=== PATIENT | male | born 1940 | race Caucasian/White ===

== ENCOUNTER → 2016-11-13 | Outpatient (CLI) | payer MEDICARE, BC ==
--- NOTE | 2016-11-13 09:01 | CT ---
EXAMINATION TYPE: CT abdomen wo con DATE OF EXAM: 11/13/2016 8:26 AM COMPARISON: Previous study dated 11/18/2014. HISTORY: Abdominal Aneurysm CT DLP: 1325.9 mGycm Automated exposure control for dose reduction was used. TECHNIQUE: Helical acquisition of images was performed from the lung bases through the top of iliac crest to include entire abdomen. CONTRAST: Performed without Oral Contrast and without IV contrast. FINDINGS: There is a calcified granuloma in the right middle lobe. There is mild atelectatic change at both lung bases. There is no pleural or pericardial fluid. The heart is not enlarged. There is cor onary artery and other vascular calcifications. There is no evidence of an aortic aneurysm. The liver is enlarged measuring 21 cm. The spleen and gallbladder are normal. Both adrenal glands are normal. There is no evidence of hydronephrosis or nephrolithiasis. The pancreas is unremarkable. There is no significant retroperitoneal adenopathy. Visualized bowel loops are normal. No free fluid and no free air is seen. There is been interclavicular fusion extending from L3 to S1. IMPRESSION: 1. NO EVIDENCE OF AORTIC ANEURYSM. 2. HEPATOMEGALY. 3. VASCULAR CALCIFICATIONS INCLUDING THE CORONARY ARTERIES. 4. EVIDENCE OF OLD GRANULOMATOUS DISEASE. 5. POSTSURGICAL CHANGES WITHIN THE SPINE.
== END | disposition home or self-care (01) ==
LOC: RADCTMAIN 07:31
PROVIDERS: ATTEND Family Medicine
DX: R16.0 Hepatomegaly, not elsewhere classified (principal); I25.10 Atherosclerotic heart disease of native coronary artery without angina pectoris; Z98.890 Other specified postprocedural states
CPT/HCPCS: 74150

== ENCOUNTER 2016-12-04 15:25 | Emergency (ER) | payer MEDICARE, BC ==
[2016-12-04 15:37] VITALS: TEMP 97.7
[2016-12-04] MEDS ORDERED: SODIUM CHLORIDE 0.9% 1,000 ML IV ONE (16:24)
--- NOTE | 2016-12-04 16:34 | ED ---
General Adult HPI - General Chief complaint: Altered Mental Status Stated complaint: hard to wake, body twitching Time Seen by Provider: 12/04/16 16:13 Source: patient Mode of arrival: ambulatory Limitations: no limitations - History of Present Illness Initial comments: is a 76-year-old man presents to the emergency department with his who also gives history, and they state that he has been having generalized weakness and fatigue. He felt too weak to safely walk today. When he tried to get up to use the bathroom he felt like his legs were buckling. It definitely was both legs not 1. He denies focal weakness. The patient had not been feeling well yesterday and had gone to bed and then reportedly slept for about 14 hours. He did get up briefly and then went back to bed for another 4-6 hours , when his persuaded him to be seen here. The patient is denying pains. He denies dyspnea. He states that he just feels tired and weak. He has had a number of medication changes recently. He was taken off of his Plavix and aspirin because he felt he was having easy bruising and bleeding. He also had some leg edema and took a double dose of diuretic a couple of days ago. The patient does deny swelling today. Onset/Timin -: days(s) Associated Symptoms: weakness - Related Data Home Medications Medication Instructions Recorded Confirmed Glimepiride 2 mg PO BID 03/28/15 12/04/16 Hydrocodone/Acetaminophen 1 tab PO Q4H PRN 03/28/15 12/04/16 [Hydrocodon-Acetaminophn 10-325] Lisinopril 20 mg PO DAILY 03/28/15 12/04/16 Metoclopramide [Reglan] 5 mg PO BID 03/28/15 12/04/16 metFORMIN HCL 500 mg PO W/SUPPER 03/28/15 12/04/16 sitaGLIPtin [Januvia] 50 mg PO DAILY 03/28/15 12/04/16 Aspirin EC [Ecotrin] 81 mg PO SUWE 12/04/16 12/04/16 Baclofen [Lioresal] 20 mg PO TID PRN 12/04/16 12/04/16 Cetirizine HCl [Zyrtec] 10 mg PO HS PRN 12/04/16 12/04/16 Morphine Sulfate ER [Ms Contin 30 mg PO BID PRN 12/04/16 12/04/16 30Mg] Multivitamins, Thera [Multivitamin 1 tab PO DAILY 12/04/16 12/04/16 (formulary)] Omeprazole 40 mg PO BID 12/04/16 12/04/16 Polyethylene Glycol 3350 [Miralax] 17 gm PO DAILY 12/04/16 12/04/16 Tamsulosin HCl [Flomax] 0.4 mg PO DAILY 12/04/16 12/04/16 traZODone HCL 300 mg PO HS 12/04/16 12/04/16 Previous Rx's Medication Instructions Recorded Nitroglycerin Sl Tabs [Nitrostat] 0.4 mg SUBLINGUAL Q5M PRN #25 tab 03/31/15 Allergies Allergy/AdvReac Type Severity Reaction Status Date / Time Penicillins Allergy Rash/Hives Verified 12/04/16 16:30 Review of Systems ROS Statement: Those systems with pertinent positive or pertinent negative responses have been documented in the HPI. ROS Other: All systems not noted in ROS Statement are negative. Constitutional: Reports: weakness (Generalized). Denies: fever, chills Respiratory: Denies: cough, dyspnea Cardiovascular: Denies: chest pain, palpitations, orthopnea, syncope Gastrointestinal: Denies: abdominal pain, vomiting, diarrhea, melena, hematochezia Genitourinary: Reports: other (Possible oliguria). Denies: dysuria, hematuria Musculoskeletal: Denies: back pain Skin: Denies: rash Neurological: Denies: headache, weakness, numbness Hematological/Lymphatic: Reports: as per HPI, easy bleeding, easy bruising Past Medical History Past Medical History: Chest Pain / Angina, Diabetes Mellitus, GERD/Reflux, Hypertension, Osteoarthritis (OA) Additional Past Medical History / Comment(s): CHRONIC BACK PAIN. ABN STRESS TEST. History of Any Multi-Drug Resistant Organisms: None Reported Past Surgical History: Appendectomy, Back Surgery, Orthopedic Surgery Additional Past Surgical History / Comment(s): 03-30-15 HEART CATH WITH STENTS TO OM AND LAD. BACK SURG X2. Past Anesthesia/Blood Transfusion Reactions: No Reported Reaction Past Psychological History: No Psychological Hx Reported Smoking Status: Former smoker Past Alcohol Use History: None Reported Past Drug Use History: None Reported - Past Family History Mother Family Medical History: No Reported History General Exam Limitations: no limitations General appearance: alert, in no apparent distress, obese Head exam: Present: atraumatic, normocephalic Eye exam: Present: normal appearance. Absent: scleral icterus, conjunctival injection ENT exam: Present: mucous membranes dry Neck exam: Present: normal inspection, full ROM Respiratory exam: Present: normal lung sounds bilaterally. Absent: respiratory distress, wheezes, rales, rhonchi, stridor Cardiovascular Exam: Present: regular rate, normal rhythm, normal heart sounds. Absent: systolic murmur, diastolic murmur, rubs, gallop GI/Abdominal exam: Present: soft. Absent: distended, tenderness, guarding, rebound, rigid, mass, pulsatile mass, hernia Extremities exam: Present: normal inspection, normal capillary refill. Absent: pedal edema, calf tenderness Back exam: Present: normal inspection. Absent: CVA tenderness (R), CVA tenderness (L) Neurological exam: Present: alert, CN II-XII intact. Absent: motor sensory deficit Skin exam: Present: warm, dry, intact, normal color. Absent: rash Course Vital Signs 12/04/16 12/04/16 12/04/16 15:33 17:35 18:23 Temperature 97.7 F Pulse Rate 80 79 Respiratory 18 18 18 Rate Blood Pressure 140/72 134/84 O2 Sat by Pulse 94 L 93 L 100 Oximetry 12/04/16 18:27 Temperature Pulse Rate 82 Respiratory 18 Rate Blood Pressure 141/76 O2 Sat by Pulse 100 Oximetry Medical Decision Making - Lab Data Result diagrams: 12/04/16 16:18 12/04/16 16:18 Lab Results 12/04/16 12/04/16 12/04/16 Range/Units 16:18 16:18 16:18 WBC 13.2 H (3.8-10.6) k/uL RBC 4.81 (4.30-5.90) m/uL Hgb 13.6 (13.0-17.5) gm/dL Hct 42.6 (39.0-53.0) % MCV 88.6 (80.0-100.0) fL MCH 28.4 (25.0-35.0) pg MCHC 32.0 (31.0-37.0) g/dL RDW 15.0 (11.5-15.5) % Plt Count 175 (150-450) k/uL Neutrophils % 82 % Lymphocytes % 9 % Monocytes % 6 % Eosinophils % 1 % Basophils % 1 % Neutrophils # 10.8 H (1.3-7.7) k/uL Lymphocytes # 1.2 (1.0-4.8) k/uL Monocytes # 0.8 (0-1.0) k/uL Eosinophils # 0.2 (0-0.7) k/uL Basophils # 0.1 (0-0.2) k/uL Sodium 136 L (137-145) mmol/L Potassium 4.5 (3.5-5.1) mmol/L Chloride 98 (98-107) mmol/L Carbon Dioxide 25 (22-30) mmol/L Anion Gap 13 mmol/L BUN 41 H (9-20) mg/dL Creatinine 1.27 H (0.66-1.25) mg/dL Est GFR (MDRD) Af Amer >60 (>60 ml/min/1.73 sqM) Est GFR (MDRD) Non-Af 55 (>60 ml/min/1.73 sqM) Glucose 169 H (74-99) mg/dL Plasma Lactic Acid Jeff (0.7-2.0) mmol/L Calcium 9.7 (8.4-10.2) mg/dL Magnesium 2.3 (1.6-2.3) mg/dL Total Bilirubin 0.9 (0.2-1.3) mg/dL AST 24 (17-59) U/L ALT 33 (21-72) U/L Alkaline Phosphatase 63 (38-126) U/L Ammonia (<30) umol/L Troponin I <0.012 (0.000-0.034) ng/mL Total Protein 8.0 (6.3-8.2) g/dL Albumin 4.4 (3.5-5.0) g/dL Urine Color Urine Appearance (Clear) Urine pH (5.0-8.0) Ur Specific [place] (1.001-1.035) Urine Protein (Negative) Urine Glucose (UA) (Negative) Urine Ketones (Negative) Urine Blood (Negative) Urine Nitrite (Negative) Urine Bilirubin (Negative) Urine Urobilinogen (<2.0) mg/dL Ur Leukocyte Esterase (Negative) Serum Alcohol <10 mg/dL 12/04/16 12/04/16 Range/Units 16:40 17:25 WBC (3.8-10.6) k/uL RBC (4.30-5.90) m/uL Hgb (13.0-17.5) gm/dL Hct (39.0-53.0) % MCV (80.0-100.0) fL MCH (25.0-35.0) pg MCHC (31.0-37.0) g/dL RDW (11.5-15.5) % Plt Count (150-450) k/uL Neutrophils % % Lymphocytes % % Monocytes % % Eosinophils % % Basophils % % Neutrophils # (1.3-7.7) k/uL Lymphocytes # (1.0-4.8) k/uL Monocytes # (0-1.0) k/uL Eosinophils # (0-0.7) k/uL Basophils # (0-0.2) k/uL Sodium (137-145) mmol/L Potassium (3.5-5.1) mmol/L Chloride (98-107) mmol/L Carbon Dioxide (22-30) mmol/L Anion Gap mmol/L BUN (9-20) mg/dL Creatinine (0.66-1.25) mg/dL Est GFR (MDRD) Af Amer (>60 ml/min/1.73 sqM) Est GFR (MDRD) Non-Af (>60 ml/min/1.73 sqM) Glucose (74-99) mg/dL Plasma Lactic Acid Jeff 1.6 (0.7-2.0) mmol/L Calcium (8.4-10.2) mg/dL Magnesium (1.6-2.3) mg/dL Total Bilirubin (0.2-1.3) mg/dL AST (17-59) U/L ALT (21-72) U/L Alkaline Phosphatase (38-126) U/L Ammonia <9 (<30) umol/L Troponin I (0.000-0.034) ng/mL Total Protein (6.3-8.2) g/dL Albumin (3.5-5.0) g/dL Urine Color Yellow Urine Appearance Clear (Clear) Urine pH 5.0 (5.0-8.0) Ur Specific [place] 1.009 (1.001-1.035) Urine Protein Negative (Negative) Urine Glucose (UA) Negative (Negative) Urine Ketones Negative (Negative) Urine Blood Negative (Negative) Urine Nitrite Negative (Negative) Urine Bilirubin Negative (Negative) Urine Urobilinogen <2.0 (<2.0) mg/dL Ur Leukocyte Esterase Negative (Negative) Serum Alcohol mg/dL Disposition Clinical Impression: Generalized weakness, Dehydration Disposition: HOME SELF-CARE Condition: Fair Instructions: Dehydration (ED), Weakness (ED) Referrals: Tank Broussard DO [Primary Care Provider] - 1-2 days
[2016-12-04 16:43] LABS: Basophils # (A) 0.1 k/uL (0-0.2); Basophils % (A) 1 %; CH 28.2; CHCM 31.9; Eosinophils # (A) 0.2 k/uL (0-0.7); Eosinophils % (A) 1 %; HCT 42.6 % (39.0-53.0); HDW 2.59; HGB 13.6 gm/dL (13.0-17.5); Luc # (Auto) 0.19; Luc % (Auto) 1; Lymphocytes # (A) 1.2 k/uL (1.0-4.8); Lymphocytes % (A) 9 %; MCH 28.4 pg (25.0-35.0); MCV 88.6 fL (80.0-100.0); Mean Platelet Volume 7.9; Monocytes # (A) 0.8 k/uL (0-1.0); Monocytes % (A) 6 %; Neutrophils # (A) 10.8 k/uL (1.3-7.7); Neutrophils % (A) 82 %; RBC 4.81 m/uL (4.30-5.90); WBC 13.2 k/uL (3.8-10.6); WBC (Perox) 13.49
[2016-12-04 16:50] LABS: ALT 33 U/L (21-72); AST 24 U/L (17-59); Alcohol <10 mg/dL; Alkaline Phosphatase 63 U/L (38-126); Anion Gap 13 mmol/L; Blood Urea Nitrogen 41 mg/dL (9-20); Calcium 9.7 mg/dL (8.4-10.2); Carbon Dioxide 25 mmol/L (22-30); Chloride 98 mmol/L (98-107); Glucose 169 mg/dL (74-99); Magnesium 2.3 mg/dL (1.6-2.3); Non-African American GFR(MDRD) 55 (>60 ml/min/1.73 sqM); Potassium 4.5 mmol/L (3.5-5.1); Sodium 136 mmol/L (137-145); Total Bilirubin 0.9 mg/dL (0.2-1.3)
[2016-12-04 17:10] LABS: Ammonia <9 umol/L (<30)
[2016-12-04 17:37] LABS: Appearance,Urine Clear (Clear); Bilirubin,Urine Negative (Negative); Glucose,Urine (UA) Negative (Negative); Ketones,Urine Negative (Negative); Leukocyte Esterase,Urine Negative (Negative); Nitrite,Urine Negative (Negative); Protein,Urine Negative (Negative); Specific Gravity,Urine 1.009 (1.001-1.035); UA Billing (MACRO vs. MICRO) CHEM; Urobilinogen,Urine <2.0 mg/dL (<2.0)
--- NOTE | 2016-12-04 17:47 | XR ---
EXAMINATION TYPE: XR chest 1V portable DATE OF EXAM: 12/04/2016 5:38 PM HISTORY: Shortness of breath. COMPARISON: March 26, 2015 TECHNIQUE: Single view of the chest is submitted. FINDINGS: Demonstrated are scattered senescent parenchymal change. There is no evidence for focal infiltrate. The heart is stable. Hilar and mediastinal structures are within normal limits. Degenerative changes are seen of the dorsal spine. IMPRESSION: 1. Chronic changes without evidence for acute pulmonary disease.
[2016-12-04 20:17] VITALS: BP 144/65; PULSE 86; RESP 20
== END 2016-12-04 20:17 | disposition home or self-care (01) ==
LOC: EC 15:25
DX: E86.0 Dehydration (principal); R53.1 Weakness; E11.9 Type 2 diabetes mellitus without complications; K21.9 Gastro-esophageal reflux disease without esophagitis; I10 Essential (primary) hypertension; M19.90 Unspecified osteoarthritis, unspecified site; Z87.891 Personal history of nicotine dependence; Z79.84 Long term (current) use of oral hypoglycemic drugs; Z79.82 Long term (current) use of aspirin; Z79.899 Other long term (current) drug therapy; Z88.0 Allergy status to penicillin
CPT/HCPCS: 36415; 71010; 80053; 80320; 81003; 82140; 83605; 83735; 84484; 85025; 87086; 93005; 96360; 99285

== ENCOUNTER 2017-04-30 06:24 | Day surgery (SDC) | payer MEDICARE, BC ==
[2017-04-26 13:42] VITALS: BMI 38.0
[~2017-04-30 06:24] MED LIST: LACTATED RINGERS 1,000 ML IV SCH; LIDOCAINE 1% 20 ML VIAL (10MG/ML) FOR IV START INTRADERMA PRN
[2017-04-30] MEDS: PHENYLEPHRINE 10% OPHTH DROPS 5 ML BTL OP ONE ×3 (06:45→07:05)
[2017-04-30] MEDS: CYCLOPENTOLATE 1% OPHTH SOLN 2 ML BTL OP ONE ×3 (07:10→07:20)
[2017-04-30] MEDS ORDERED: LIDOCAINE 1% 20 ML VIAL (10MG/ML) FOR IV START INTRADERMA ONE (07:10)
[2017-04-30 07:13] VITALS: RESP 18; TEMP 97.1
[2017-04-30 07:16] LABS: Glucose,Whole Blood 138 mg/dL (75-99)
[2017-04-30] MEDS: KETOROLAC 0.5% OPHTH DROPS 3 ML BTL OP ONE ×2 (07:22→07:25)
[2017-04-30] MEDS ORDERED: PROPOFOL 10 MG/ML 20 ML VIAL IV ONE (07:42)
[2017-04-30] MEDS ORDERED: MIDAZOLAM 2 MG/2 ML VIAL ONE (07:42)
[2017-04-30] MEDS ORDERED: fentaNYL (PF) 50 MCG/ML 2 ML AMP ONE (07:42)
[2017-04-30] MEDS ORDERED: EPINEPHrine (PF) 0.5 ML in BALANCED SALT IRRIG SOLN COMB2 500 ML IRRIGATION ONE (08:00)
[2017-04-30] MEDS ORDERED: BALANCED SALT IRRIG SOLN COMB2 15 ML IRRIG.SOLN IRRIGATION ONE (08:02)
[2017-04-30] MEDS ORDERED: HYALURONATE SODIUM INTRAOCULAR 1 EACH SYRINGE (10MG/ML) INTRAOCULA ONE (08:03)
[2017-04-30 08:27] VITALS: BP 147/63; PULSE 49
--- NOTE | 2017-04-30 08:50 | P.OP ---
Date of Procedure: 04/30/17 Procedure(s) Performed: PREOPERATIVE DIAGNOSIS: Cataract, right eye. Miosis secondary to Flomax usage. POSTOPERATIVE DIAGNOSIS: Cataract, right eye. OPERATION: Phacoemulsification cataract, right eye. DESCRIPTION OF PROCEDURE: The patient was taken to the preoperative holding area. Intravenous Propofol was given so as to bring about adequate sedation. The following mixture was given for local anesthesia: 5 mL of 2% lidocaine, 5 mL of 0.75% Marcaine, and 1 mL of Wydase. Approximately 4 mL was injected in the retrobulbar space of the surgical eye. Additional 1 mL was then directed to the temporal area of the surgical eye. This was performed to allow adequate neurological block of the facial muscles. The patient was revived and then taken into the operative room. The patient was prepped and draped in the usual sterile manner for the operative eye. A lid speculum was put into position. The conjunctiva was resected back from the limbus in the 12 o'clock position. Bleeding was controlled with electrocautery. A #69 blade was then used and a half-thickness scleral incision approximately 1-mm posterior to the limbus was made on bare sclera. This was shelved in the clear cornea using a crescent knife. Next a 15-degree blade was used to make a stab incision at the 3 o' clock position at the corneolimbal interface. Keratome blade was then used and the superior wound was extended into the anterior chamber. Viscoelastic was injected into the anterior chamber and to maintain its form. A Maluygin ring was injected and the pupil was stretched into poisiton. Next, a cystotome was used and a continuous anterior capsulotomy was made without difficulty. Hydrodissection using a blunt cannula and BSS was performed. Phaco probe was then employed and a groove extending from 12 to 6 o'clock in the lens was created. A Cristian wand was used through the stab incision so as to perform a divide and conquer technique. Next an irrigation aspiration probe was utilized and any residual cortex was removed from the eye. Again, viscoelastic was injected into the anterior chamber. An Juan posterior chamber lens implant was placed in the cartridge and injected into the anterior chamber without difficulty. The Reva Systemsey hook was utilized to spin the lens into position and this was again performed without any difficulty. The Maluygin ring was removed from the eye. The irrigation and aspiration probe was again employed and any residual viscoelastic was removed from the eye. Then BSS was injected into the limbal stab incision and the anterior chamber re- inflated. The conjunctiva was reapproximated using electrocautery. One drop of 0.25% Timoptic was placed over the corneal along with TobraDex ophthalmic ointment. Two sterile patches and a Noel eye shield were taped into position. The patient was transported to the recovery room in stable condition. Pathology: none sent Condition: stable Disposition: same day
[2017-04-30] MEDS ORDERED: BUPIVACAINE (PF) 0.75% 5 ML, LIDOCAINE 4% (PF) 5 ML, HYALURONIDASE, HUMAN RECOMB 150 UNIT MISCELLANE ONE ×3 (23:00)
[2017-04-30] MEDS ORDERED: TIMOLOL 0.5% OPHTH SOLN (PF) 0.2 ML DROPERETTE OP ONE (23:00)
[2017-04-30] MEDS ORDERED: GENTAMICIN/PREDNISOL AC OPHTH OINT 3.5GM OPHTHALMIC ONE (23:00)
== END 2017-04-30 09:11 | disposition home or self-care (01) ==
LOC: OR 06:24
PROVIDERS: ATTEND Ophthalmology
DX: H26.9 Unspecified cataract (principal); H57.03 Miosis; E11.9 Type 2 diabetes mellitus without complications; I10 Essential (primary) hypertension; Z95.5 Presence of coronary angioplasty implant and graft; Z88.0 Allergy status to penicillin; I25.2 Old myocardial infarction; I25.10 Atherosclerotic heart disease of native coronary artery without angina pectoris; J44.9 Chronic obstructive pulmonary disease, unspecified; K21.9 Gastro-esophageal reflux disease without esophagitis; Z79.84 Long term (current) use of oral hypoglycemic drugs; Z87.891 Personal history of nicotine dependence; Z79.899 Other long term (current) drug therapy; T44.6X5A Adverse effect of alpha-adrenoreceptor antagonists, initial encounter
CPT/HCPCS: 66984; V2632; J2001; J2250; J3470; J0171; J3010; J2704

== ENCOUNTER 2017-10-24 09:24 | Emergency (ER) | payer MEDICARE, BC ==
[2017-10-24 09:36] VITALS: RESP 18
[2017-10-24] MEDS ORDERED: SODIUM CHLORIDE 0.9% 1,000 ML IV ONE (09:48)
--- NOTE | 2017-10-24 10:20 | ED ---
General Adult HPI - General Chief complaint: Fall Stated complaint: Fall Time Seen by Provider: 10/24/17 09:25 Source: patient, family, EMS, RN notes reviewed Mode of arrival: EMS Limitations: no limitations - History of Present Illness Initial comments: 77-year-old male presents emergency department via EMS with multiple complaints. states that the patient has been falling, with jerking movements. She states that he suddenly just starts jerking all his extremities is awake. 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 She has noticed this in the last 2 days. He's had 2 large falls and when she tries to get up and this falls forward. Patient did fall has abrasion to his arm and skin tears. His tetanus is up-to-date. Patient denies any head injury and also conscious. Patient denies any chest pain or shortness breath. Patient states that he has no history of Parkinson's or seizure-like activity. He states he cannot control these movements he just starts jerking especially his extremities. He does admit to a long history of back problems in which she's had multiple surgeries. Patient has been going to physical therapy. also states that he just been randomly fallen asleep which is unusual for him. - Related Data Home Medications Medication Instructions Recorded Confirmed Glimepiride 2 mg PO BID-W/MEALS 03/28/15 10/24/17 Hydrocodone/Acetaminophen 1 tab PO Q4H PRN 03/28/15 10/24/17 [Hydrocodone-Acetamin 10-325 mg] Lisinopril 20 mg PO DAILY 03/28/15 10/24/17 Metoclopramide [Reglan] 5 mg PO BID 03/28/15 10/24/17 metFORMIN HCL 500 mg PO DAILY 03/28/15 10/24/17 sitaGLIPtin [Januvia] 50 mg PO DAILY 03/28/15 10/24/17 Aspirin EC [Ecotrin] 81 mg PO DAILY 12/04/16 10/24/17 Cetirizine HCl [Zyrtec] 10 mg PO DAILY 12/04/16 10/24/17 Multivitamins, Thera [Multivitamin 1 tab PO DAILY 12/04/16 10/24/17 (formulary)] Omeprazole 40 mg PO BID 12/04/16 10/24/17 Polyethylene Glycol 3350 [Miralax] 17 gm PO DAILY 12/04/16 10/24/17 Tamsulosin HCl [Flomax] 0.4 mg PO DAILY 12/04/16 10/24/17 traZODone HCL 300 mg PO HS 12/04/16 10/24/17 Metoprolol Succinate (ER) [Toprol 50 mg PO DAILY 04/26/17 10/24/17 Xl] tiZANidine [Zanaflex] 4 mg PO TID 04/26/17 10/24/17 Atorvastatin [Lipitor] 10 mg PO HS 10/24/17 10/24/17 Insulin Glargine,Hum.rec.anlog 16 unit SQ DAILY 10/24/17 10/24/17 [Lantus Solostar] Pregabalin [Lyrica] 75 mg PO BID 10/24/17 10/24/17 Previous Rx's Medication Instructions Recorded Nitroglycerin Sl Tabs [Nitrostat] 0.4 mg SUBLINGUAL Q5M PRN #25 tab 03/31/15 Allergies Allergy/AdvReac Type Severity Reaction Status Date / Time Penicillins Allergy Rash/Hives Verified 10/24/17 09:43 Review of Systems ROS Statement: Those systems with pertinent positive or pertinent negative responses have been documented in the HPI. ROS Other: All systems not noted in ROS Statement are negative. Past Medical History Past Medical History: Diabetes Mellitus, Hypertension, Myocardial Infarction ([place] ) Additional Past Medical History / Comment(s): CHRONIC BACK PAIN., ENLARGED PROSTATE Last Myocardial Infarction Date:: 03/2015 History of Any Multi-Drug Resistant Organisms: None Reported Past Surgical History: Appendectomy, Back Surgery, Heart Catheterization With Stent, Orthopedic Surgery Additional Past Surgical History / Comment(s): HEART CATH WITH STENTS x2 (03/2015 ), BACK SURG X2. Past Anesthesia/Blood Transfusion Reactions: No Reported Reaction Date of Last Stent Placement:: 03/2015 Past Psychological History: No Psychological Hx Reported Smoking Status: Former smoker Past Alcohol Use History: None Reported Past Drug Use History: None Reported - Past Family History Mother Family Medical History: No Reported History General Exam General appearance: alert, in no apparent distress Eye exam: Present: normal appearance, PERRL, EOMI. Absent: scleral icterus, conjunctival injection, periorbital swelling ENT exam: Present: normal exam, normal oropharynx, mucous membranes moist, TM's normal bilaterally, normal external ear exam Neck exam: Present: normal inspection, full ROM. Absent: tenderness, meningismus, lymphadenopathy Respiratory exam: Present: normal lung sounds bilaterally. Absent: respiratory distress, wheezes, rales, rhonchi, stridor Cardiovascular Exam: Present: regular rate, normal rhythm, normal heart sounds. Absent: systolic murmur, diastolic murmur, rubs, gallop, clicks GI/Abdominal exam: Present: soft, normal bowel sounds. Absent: distended, tenderness, guarding, rebound, rigid Extremities exam: Present: other (Patient has full range of motion of all extremities no focal weakness launchman strength equal bilaterally) Neurological exam: Present: alert, oriented X3, CN II-XII intact, reflexes normal. Absent: motor sensory deficit Skin exam: Present: warm, dry, intact, normal color. Absent: rash Course Vital Signs 10/24/17 09:27 Temperature 97.2 F L Pulse Rate 56 L Respiratory 18 Rate Blood Pressure 158/82 O2 Sat by Pulse 91 L Oximetry Medical Decision Making - Medical Decision Making 77-year-old male presented for multiple complaints. Patient states he is jerky , fall asleep. Patient's on absent urinary retention. Patient was. Patient was offered a [place]. Mes[place] at this time. Patient was offered admission due to his unsteady gait and weakness. Patient was able to ambulate here without difficulty. Patient refuses admission. X-ray shows atelectasis. There is no evidence of pneumonia. - Lab Data Result diagrams: 10/24/17 10:07 10/24/17 10:07 Lab Results 10/24/17 10/24/17 10/24/17 Range/Units 10:07 10:07 10:07 WBC 8.4 (3.8-10.6) k/uL RBC 4.66 (4.30-5.90) m/uL Hgb 13.1 (13.0-17.5) gm/dL Hct 40.9 (39.0-53.0) % MCV 87.7 (80.0-100.0) fL MCH 28.2 (25.0-35.0) pg MCHC 32.1 (31.0-37.0) g/dL RDW 14.9 (11.5-15.5) % Plt Count 177 (150-450) k/uL Neutrophils % 82 % Lymphocytes % 8 % Monocytes % 7 % Eosinophils % 1 % Basophils % 0 % Neutrophils # 6.8 (1.3-7.7) k/uL Lymphocytes # 0.6 L (1.0-4.8) k/uL Monocytes # 0.6 (0-1.0) k/uL Eosinophils # 0.1 (0-0.7) k/uL Basophils # 0.0 (0-0.2) k/uL PT (9.0-12.0) sec INR (<1.2) APTT (22.0-30.0) sec Sodium 141 (137-145) mmol/L Potassium 4.0 (3.5-5.1) mmol/L Chloride 100 (98-107) mmol/L Carbon Dioxide 31 H (22-30) mmol/L Anion Gap 10 mmol/L BUN 42 H (9-20) mg/dL Creatinine 1.40 H (0.66-1.25) mg/dL Est GFR (CKD-EPI)AfAm 57 (>60 ml/min/1.73 sqM) Est GFR (CKD-EPI)NonAf 49 (>60 ml/min/1.73 sqM) Glucose 199 H (74-99) mg/dL Calcium 9.4 (8.4-10.2) mg/dL Magnesium 2.1 (1.6-2.3) mg/dL Total Bilirubin 0.4 (0.2-1.3) mg/dL AST 27 (17-59) U/L ALT 53 (21-72) U/L Alkaline Phosphatase 60 (38-126) U/L Total Creatine Kinase 31 L (55-170) U/L CK-MB (CK-2) 0.6 (0.0-2.4) ng/mL CK-MB (CK-2) Rel Index 1.9 Troponin I <0.012 (0.000-0.034) ng/mL NT-Pro-B Natriuret Pep pg/mL Total Protein 6.7 (6.3-8.2) g/dL Albumin 3.9 (3.5-5.0) g/dL Lipase 80 (23-300) U/L Urine Color Urine Appearance (Clear) Urine pH (5.0-8.0) Ur Specific [place] (1.001-1.035) Urine Protein (Negative) Urine Glucose (UA) (Negative) Urine Ketones (Negative) Urine Blood (Negative) Urine Nitrite (Negative) Urine Bilirubin (Negative) Urine Urobilinogen (<2.0) mg/dL Ur Leukocyte Esterase (Negative) 10/24/17 10/24/17 10/24/17 Range/Units 10:07 10:22 12:07 WBC (3.8-10.6) k/uL RBC (4.30-5.90) m/uL Hgb (13.0-17.5) gm/dL Hct (39.0-53.0) % MCV (80.0-100.0) fL MCH (25.0-35.0) pg MCHC (31.0-37.0) g/dL RDW (11.5-15.5) % Plt Count (150-450) k/uL Neutrophils % % Lymphocytes % % Monocytes % % Eosinophils % % Basophils % % Neutrophils # (1.3-7.7) k/uL Lymphocytes # (1.0-4.8) k/uL Monocytes # (0-1.0) k/uL Eosinophils # (0-0.7) k/uL Basophils # (0-0.2) k/uL PT 9.5 (9.0-12.0) sec INR 1.0 (<1.2) APTT 20.6 L (22.0-30.0) sec Sodium (137-145) mmol/L Potassium (3.5-5.1) mmol/L Chloride (98-107) mmol/L Carbon Dioxide (22-30) mmol/L Anion Gap mmol/L BUN (9-20) mg/dL Creatinine (0.66-1.25) mg/dL Est GFR (CKD-EPI)AfAm (>60 ml/min/1.73 sqM) Est GFR (CKD-EPI)NonAf (>60 ml/min/1.73 sqM) Glucose (74-99) mg/dL Calcium (8.4-10.2) mg/dL Magnesium (1.6-2.3) mg/dL Total Bilirubin (0.2-1.3) mg/dL AST (17-59) U/L ALT (21-72) U/L Alkaline Phosphatase (38-126) U/L Total Creatine Kinase (55-170) U/L CK-MB (CK-2) (0.0-2.4) ng/mL CK-MB (CK-2) Rel Index Troponin I (0.000-0.034) ng/mL NT-Pro-B Natriuret Pep 50 pg/mL Total Protein (6.3-8.2) g/dL Albumin (3.5-5.0) g/dL Lipase (23-300) U/L Urine Color Yellow Urine Appearance Clear (Clear) Urine pH 5.5 (5.0-8.0) Ur Specific [place] 1.018 (1.001-1.035) Urine Protein Trace H (Negative) Urine Glucose (UA) 2+ H (Negative) Urine Ketones Negative (Negative) Urine Blood Negative (Negative) Urine Nitrite Negative (Negative) Urine Bilirubin Negative (Negative) Urine Urobilinogen <2.0 (<2.0) mg/dL Ur Leukocyte Esterase Negative (Negative) Disposition Clinical Impression: Fall, Occasional tremors, Urinary retention Disposition: HOME SELF-CARE Condition: Stable Instructions: Fall Prevention (ED) Additional Instructions: Please return to the Emergency Department if symptoms worsen or any other concerns. Referrals: Tank Broussard DO [Primary Care Provider] - 1-2 days Time of Disposition: 13:49
[2017-10-24 10:31] LABS: Basophils % (A) 0 %; Eosinophils # (A) 0.1 k/uL (0-0.7); Eosinophils % (A) 1 %; HCT 40.9 % (39.0-53.0); HGB 13.1 gm/dL (13.0-17.5); Lymphocytes # (A) 0.6 k/uL (1.0-4.8); Lymphocytes % (A) 8 %; MCH 28.2 pg (25.0-35.0); MCHC 32.1 g/dL (31.0-37.0); MCV 87.7 fL (80.0-100.0); Mean Platelet Volume 8.7; Monocytes # (A) 0.6 k/uL (0-1.0); Monocytes % (A) 7 %; Neutrophils # (A) 6.8 k/uL (1.3-7.7); Neutrophils % (A) 82 %; Platelet Count 177 k/uL (150-450); RBC 4.66 m/uL (4.30-5.90); RDW 14.9 % (11.5-15.5); WBC 8.4 k/uL (3.8-10.6)
[2017-10-24 10:36] LABS: Prothrombin Time 9.5 sec (9.0-12.0)
[2017-10-24 10:43] LABS: Albumin 3.9 g/dL (3.5-5.0); Calcium 9.4 mg/dL (8.4-10.2); Magnesium 2.1 mg/dL (1.6-2.3); Total Bilirubin 0.4 mg/dL (0.2-1.3); Total Protein 6.7 g/dL (6.3-8.2)
[2017-10-24 10:49] LABS: Creatine Kinase 31 U/L (55-170)
--- NOTE | 2017-10-24 10:53 | CT ---
EXAMINATION TYPE: CT brain wo con DATE OF EXAM: 10/24/2017 COMPARISON: NONE HISTORY: 77-year-old male, altered mental status, confusion, Fall, Uncontrolled movements TECHNIQUE: Examination was done in axial plane without intravenous contrast. Coronal and sagittal r econstructions performed. CT DLP: 1121 mGycm Automated exposure control for dose reduction was used. FINDINGS: There are mild motion artifacts. Moderate generalized supratentorial volume loss. Allowing for the motion artifacts which cause streak and beam hardening along the calvarium, no acute intracranial hemorrhage, acute ischemic change, mass, mass effect, midline shift, or extra-axial flu id collection is seen. No hydrocephalus. No effacement of cerebral sulci or basal subarachnoid cister ns. To the extent visualized, castro-white matter differentiation appears maintained. There is an old lacunar infarct in the left caudate head. No calvarial fracture. Orbits and globes are intact. Leftward nasal septal deviation. Possible old na latha bone fracture. There is mucosal thickening and frothy partial opacification of the left maxillary sinus. Mastoid air cells well pneumatized. IMPRESSION: 1. Some motion artefact limiting assessment. No acute intracranial abnormality seen. 2. Moderate cerebral atrophy. 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 3. Acute on chronic left maxillary sinus disease. Correlate with symptoms.
--- NOTE | 2017-10-24 10:53 | XR ---
EXAMINATION TYPE: XR chest 2V DATE OF EXAM: 10/24/2017 COMPARISON: 12/04/2026 HISTORY: 77-year-old male with cough and pain TECHNIQUE: AP and lateral views FINDINGS: Heart mildly enlarged. Aorta within normal limits. Mild diffuse interstitial prominence and peribronc hial cuffing. Some patchy left basilar density. No consolidation or pleural effusion seen elsewhere. IMPRESSION: 1. Mild cardiomegaly. 2. Mild interstitial prominence could reflect mild CHF, bronchitis, or asthma. No pleural effusions. 3. Some patchy atelectasis or early infiltrate at the left base.
[2017-10-24 11:01] LABS: Creatine Kinase MB 0.6 ng/mL (0.0-2.4); Troponin I <0.012 ng/mL (0.000-0.034)
[2017-10-24 11:03] LABS: Partial Thromboplastin Time 20.6 sec (22.0-30.0)
[2017-10-24 12:31] LABS: Appearance,Urine Clear (Clear); Bilirubin,Urine Negative (Negative); Blood,Urine Negative (Negative); Color,Urine Yellow; Glucose,Urine (UA) 2+ (Negative); Ketones,Urine Negative (Negative); Leukocyte Esterase,Urine Negative (Negative); Nitrite,Urine Negative (Negative); PH, Urine 5.5 (5.0-8.0); Protein,Urine Trace (Negative); Specific Gravity,Urine 1.018 (1.001-1.035); Urobilinogen,Urine <2.0 mg/dL (<2.0)
[2017-10-24 14:28] VITALS: BP 128/67; PULSE 55; TEMP 97.7
== END 2017-10-24 14:28 | disposition home or self-care (01) ==
LOC: EC 09:24
DX: R25.1 Tremor, unspecified (principal); R33.9 Retention of urine, unspecified; S40.812A Abrasion of left upper arm, initial encounter; R53.1 Weakness; J98.11 Atelectasis; E11.9 Type 2 diabetes mellitus without complications; I10 Essential (primary) hypertension; I25.2 Old myocardial infarction; Z87.891 Personal history of nicotine dependence; Z79.4 Long term (current) use of insulin; Z79.82 Long term (current) use of aspirin; Z79.899 Other long term (current) drug therapy; W07.XXXA Fall from chair, initial encounter; Y92.002 Bathroom of unspecified non-institutional (private) residence as the place of occurrence of the external cause; Z88.0 Allergy status to penicillin
CPT/HCPCS: 36415; 51798; 70450; 71046; 80053; 81003; 82550; 82553; 83690; 83735; 83880; 84484; 85025; 85610; 85730; 93005; 96360; 99285

== ENCOUNTER 2017-11-26 20:08 | Emergency (ER) | payer MEDICARE, OTHER ==
--- NOTE | 2017-11-26 20:33 | ED ---
General Adult HPI - General Chief complaint: Weakness Stated complaint: fall Time Seen by Provider: 11/26/17 20:19 Source: patient, family, RN notes reviewed, old records reviewed Mode of arrival: wheelchair Limitations: physical limitation - History of Present Illness Initial comments: This is a 77-year-old male the ER for evaluation of weakness. Likely dehydration. Patient has significant medical history, recent medical history of weakness and episodes of fall secondary dehydration. Patient has ER visit and within the last month for same. Patient states he doesn't have any injury from the fall disease, feeling weak not feeling well not feeling himself. states patient is at normal baseline. Patient is recent travel history or sick contacts. Patient fell today while trying to get in his car and then again at home. Again no injuries - Related Data Home Medications Medication Instructions Recorded Confirmed Glimepiride 2 mg PO BID-W/MEALS 03/28/15 11/26/17 Lisinopril 20 mg PO DAILY 03/28/15 11/26/17 Metoclopramide [Reglan] 5 mg PO BID 03/28/15 11/26/17 metFORMIN HCL 500 mg PO DAILY 03/28/15 11/26/17 sitaGLIPtin [Januvia] 50 mg PO DAILY 03/28/15 11/26/17 Aspirin EC [Ecotrin] 81 mg PO DAILY 12/04/16 11/26/17 Cetirizine HCl [Zyrtec] 10 mg PO DAILY 12/04/16 11/26/17 Multivitamins, Thera [Multivitamin 1 tab PO DAILY 12/04/16 11/26/17 (formulary)] Omeprazole 40 mg PO BID 12/04/16 11/26/17 Polyethylene Glycol 3350 [Miralax] 17 gm PO DAILY 12/04/16 11/26/17 Tamsulosin HCl [Flomax] 0.4 mg PO BID 12/04/16 11/26/17 traZODone HCL 300 mg PO HS 12/04/16 11/26/17 Metoprolol Succinate (ER) [Toprol 50 mg PO DAILY 04/26/17 11/26/17 Xl] tiZANidine [Zanaflex] 4 mg PO TID 04/26/17 11/26/17 Atorvastatin [Lipitor] 10 mg PO HS 03/15/18 04/17/18 Insulin Glargine,Hum.rec.anlog 16 unit SQ DAILY 10/24/17 11/26/17 [Lantus Solostar] Pregabalin [Lyrica] 75 mg PO QID 10/24/17 11/26/17 Baclofen [Lioresal] 20 mg PO TID 11/26/17 11/26/17 Furosemide [Lasix] 40 mg PO DAILY 11/26/17 11/26/17 Potassium Chloride ER [K-Dur 20] 20 meq PO BID 11/26/17 11/26/17 Selenium Sulfide 2.5 % Lotion 1 applic TOPICAL DAILY PRN 11/26/17 11/26/17 traMADol HCl [Ultram] 50 mg PO TID PRN 11/26/17 11/26/17 Previous Rx's Medication Instructions Recorded Nitroglycerin Sl Tabs [Nitrostat] 0.4 mg SUBLINGUAL Q5M PRN #25 tab 03/31/15 Allergies Allergy/AdvReac Type Severity Reaction Status Date / Time Penicillins Allergy Rash/Hives Verified 11/26/17 21:11 Review of Systems ROS Statement: Those systems with pertinent positive or pertinent negative responses have been documented in the HPI. ROS Other: All systems not noted in ROS Statement are negative. Past Medical History Past Medical History: Diabetes Mellitus, Hypertension, Myocardial Infarction ([place] ) Additional Past Medical History / Comment(s): CHRONIC BACK PAIN, ENLARGED PROSTATE Last Myocardial Infarction Date:: 03/2015 History of Any Multi-Drug Resistant Organisms: None Reported Past Surgical History: Appendectomy, Back Surgery, Heart Catheterization With Stent, Orthopedic Surgery Additional Past Surgical History / Comment(s): HEART CATH WITH STENTS x2 (03/2015 ), BACK SURG X2. Past Anesthesia/Blood Transfusion Reactions: No Reported Reaction Date of Last Stent Placement:: 03/2015 Past Psychological History: No Psychological Hx Reported Smoking Status: Former smoker Past Alcohol Use History: None Reported Past Drug Use History: None Reported - Past Family History Mother Family Medical History: No Reported History General Exam Limitations: physical limitation General appearance: alert, in no apparent distress Head exam: Present: atraumatic, normocephalic, normal inspection Eye exam: Present: normal appearance, PERRL, EOMI. Absent: scleral icterus, conjunctival injection, periorbital swelling ENT exam: Present: normal exam, mucous membranes moist Neck exam: Present: normal inspection. Absent: tenderness, meningismus, lymphadenopathy Respiratory exam: Present: normal lung sounds bilaterally. Absent: respiratory distress, wheezes, rales, rhonchi, stridor Cardiovascular Exam: Present: regular rate, normal rhythm, normal heart sounds. Absent: systolic murmur, diastolic murmur, rubs, gallop, clicks GI/Abdominal exam: Present: soft, normal bowel sounds. Absent: distended, tenderness, guarding, rebound, rigid Extremities exam: Present: normal inspection, full ROM, normal capillary refill. Absent: tenderness, pedal edema, joint swelling, calf tenderness Back exam: Present: normal inspection Neurological exam: Present: alert, oriented X3, CN II-XII intact Psychiatric exam: Present: normal affect, normal mood Skin exam: Present: warm, dry, intact, normal color. Absent: rash Course Vital Signs 11/26/17 11/26/17 11/26/17 20:15 20:43 21:47 Temperature 97.8 F Pulse Rate 68 84 60 Respiratory 20 16 18 Rate Blood Pressure 125/74 92/55 100/59 O2 Sat by Pulse 93 L 95 93 L Oximetry 11/26/17 22:56 Temperature 97.6 F Pulse Rate 60 Respiratory 18 Rate Blood Pressure 104/73 O2 Sat by Pulse 96 Oximetry - Reevaluation(s) Reevaluation #1: 11/26/17 22:00 Prior ER visit thoroughly reviewed EKG Findings - EKG Comments: EKG Findings:: EKG shows sinus rhythm rate of 64, CA 270, QRS 06, QTc 440 Medical Decision Making - Medical Decision Making 77 male the ER without complaints, lab values normal and without abnormality. Patient is feeling much better after arrival to emergency room and IV hydration. Patient can be discharged home - Lab Data Result diagrams: 11/26/17 21:00 11/26/17 21:00 Lab Results 11/26/17 11/26/17 11/26/17 Range/Units 21:00 21:00 21:00 WBC 10.3 (3.8-10.6) k/uL RBC 4.33 (4.30-5.90) m/uL Hgb 12.5 L (13.0-17.5) gm/dL Hct 37.9 L (39.0-53.0) % MCV 87.5 (80.0-100.0) fL MCH 28.9 (25.0-35.0) pg MCHC 33.0 (31.0-37.0) g/dL RDW 15.1 (11.5-15.5) % Plt Count 159 (150-450) k/uL Neutrophils % 86 % Lymphocytes % 6 % Monocytes % 5 % Eosinophils % 2 % Basophils % 0 % Neutrophils # 8.8 H (1.3-7.7) k/uL Lymphocytes # 0.6 L (1.0-4.8) k/uL Monocytes # 0.5 (0-1.0) k/uL Eosinophils # 0.2 (0-0.7) k/uL Basophils # 0.0 (0-0.2) k/uL PT (9.0-12.0) sec INR (<1.2) APTT (22.0-30.0) sec Sodium 140 (137-145) mmol/L Potassium 4.4 (3.5-5.1) mmol/L Chloride 99 (98-107) mmol/L Carbon Dioxide 27 (22-30) mmol/L Anion Gap 14 mmol/L BUN 21 H (9-20) mg/dL Creatinine 1.10 (0.66-1.25) mg/dL Est GFR (CKD-EPI)AfAm 76 (>60 ml/min/1.73 sqM) Est GFR (CKD-EPI)NonAf 65 (>60 ml/min/1.73 sqM) Glucose 251 H (74-99) mg/dL POC Glucose (mg/dL) (75-99) mg/dL POC Glu Phosphatic Fertilizer Supervisor ID Calcium 9.3 (8.4-10.2) mg/dL Phosphorus 3.6 (2.5-4.5) mg/dL Magnesium 1.7 (1.6-2.3) mg/dL Total Bilirubin 0.6 (0.2-1.3) mg/dL AST 32 (17-59) U/L ALT 70 (21-72) U/L Alkaline Phosphatase 60 (38-126) U/L Total Creatine Kinase 63 (55-170) U/L CK-MB (CK-2) 1.4 (0.0-2.4) ng/mL CK-MB (CK-2) Rel Index 2.2 Troponin I <0.012 (0.000-0.034) ng/mL Total Protein 6.2 L (6.3-8.2) g/dL Albumin 3.7 (3.5-5.0) g/dL TSH 2.160 (0.465-4.680) mIU/L 11/26/17 11/26/17 Range/Units 21:00 22:59 WBC (3.8-10.6) k/uL RBC (4.30-5.90) m/uL Hgb (13.0-17.5) gm/dL Hct (39.0-53.0) % MCV (80.0-100.0) fL MCH (25.0-35.0) pg MCHC (31.0-37.0) g/dL RDW (11.5-15.5) % Plt Count (150-450) k/uL Neutrophils % % Lymphocytes % % Monocytes % % Eosinophils % % Basophils % % Neutrophils # (1.3-7.7) k/uL Lymphocytes # (1.0-4.8) k/uL Monocytes # (0-1.0) k/uL Eosinophils # (0-0.7) k/uL Basophils # (0-0.2) k/uL PT 9.5 (9.0-12.0) sec INR 1.0 (<1.2) APTT 21.0 L (22.0-30.0) sec Sodium (137-145) mmol/L Potassium (3.5-5.1) mmol/L Chloride (98-107) mmol/L Carbon Dioxide (22-30) mmol/L Anion Gap mmol/L BUN (9-20) mg/dL Creatinine (0.66-1.25) mg/dL Est GFR (CKD-EPI)AfAm (>60 ml/min/1.73 sqM) Est GFR (CKD-EPI)NonAf (>60 ml/min/1.73 sqM) Glucose (74-99) mg/dL POC Glucose (mg/dL) 214 H (75-99) mg/dL POC Glu Phosphatic Fertilizer Supervisor ID Martha Carmichael Calcium (8.4-10.2) mg/dL Phosphorus (2.5-4.5) mg/dL Magnesium (1.6-2.3) mg/dL Total Bilirubin (0.2-1.3) mg/dL AST (17-59) U/L ALT (21-72) U/L Alkaline Phosphatase (38-126) U/L Total Creatine Kinase (55-170) U/L CK-MB (CK-2) (0.0-2.4) ng/mL CK-MB (CK-2) Rel Index Troponin I (0.000-0.034) ng/mL Total Protein (6.3-8.2) g/dL Albumin (3.5-5.0) g/dL TSH (0.465-4.680) mIU/L Disposition Clinical Impression: Dehydration, Weakness Disposition: HOME SELF-CARE Condition: Fair Instructions: Dehydration (ED), Weakness (ED) Is patient prescribed a controlled substance at d/c from ED?: No Referrals: Tank Broussard DO [Primary Care Provider] - 1-2 days
[2017-11-26] MEDS ORDERED: SODIUM CHLORIDE 0.9% 1,000 ML IV STA (20:51)
[2017-11-26 21:15] LABS: Basophils % (A) 0 %; Eosinophils # (A) 0.2 k/uL (0-0.7); Eosinophils % (A) 2 %; HCT 37.9 % (39.0-53.0); HGB 12.5 gm/dL (13.0-17.5); Lymphocytes # (A) 0.6 k/uL (1.0-4.8); Lymphocytes % (A) 6 %; MCH 28.9 pg (25.0-35.0); MCV 87.5 fL (80.0-100.0); Mean Platelet Volume 8.2; Monocytes # (A) 0.5 k/uL (0-1.0); Monocytes % (A) 5 %; Neutrophils # (A) 8.8 k/uL (1.3-7.7); Neutrophils % (A) 86 %; Platelet Count 159 k/uL (150-450); RBC 4.33 m/uL (4.30-5.90); RDW 15.1 % (11.5-15.5); WBC 10.3 k/uL (3.8-10.6)
[2017-11-26 21:25] LABS: Albumin 3.7 g/dL (3.5-5.0); Calcium 9.3 mg/dL (8.4-10.2); Magnesium 1.7 mg/dL (1.6-2.3); Phosphorus 3.6 mg/dL (2.5-4.5); Potassium 4.4 mmol/L (3.5-5.1); Total Bilirubin 0.6 mg/dL (0.2-1.3); Total Protein 6.2 g/dL (6.3-8.2)
--- NOTE | 2017-11-26 21:26 | XR ---
EXAMINATION TYPE: XR chest 2V DATE OF EXAM: 11/26/2017 COMPARISON: 12/04/2016 HISTORY: Shortness of breath TECHNIQUE: Frontal and lateral views of the chest are obtained. FINDINGS: Scattered senescent parenchymal changes noted. Right suprahilar focal infiltrate may reflect pneumonia. Infiltrates of other etiology is not exclude d. Follow-up until resolution is recommended. Heart size is stable. Mediastinal structures are stable and grossly unremarkable. No evidence for hilar prominence. Degenerative changes dorsal spine. IMPRESSION: 1. Right suprahilar focal infiltrate may reflect pneumonia. Infiltrates of other etiology is not excl uded. Follow-up until resolution is recommended.
[2017-11-26 21:30] LABS: Creatine Kinase 63 U/L (55-170)
[2017-11-26 21:33] LABS: Prothrombin Time 9.5 sec (9.0-12.0)
[2017-11-26 21:41] LABS: Creatine Kinase MB 1.4 ng/mL (0.0-2.4); Troponin I <0.012 ng/mL (0.000-0.034)
[2017-11-26 21:47] VITALS: PULSE 60; RESP 18
[2017-11-26 23:02] LABS: Glucose,Whole Blood 214 mg/dL (75-99)
[2017-11-26 23:05] VITALS: BP 104/73; TEMP 97.6
--- NOTE | 2017-11-29 06:52 | CDI ---
Documentation Clarification OP Dear Matt RODRIGUEZ DO Pended for HPI,Physical exam and MDM PB Please do addendum to ED report for Clinical impression Thank you, Francheska Vázquez Soil Analyst If you have any question, Please contact coding compliance manager at [phone] [facility]
== END 2017-11-26 23:00 | disposition home or self-care (01) ==
LOC: EC 20:08
DX: E86.0 Dehydration (principal); R53.1 Weakness; E11.9 Type 2 diabetes mellitus without complications; I10 Essential (primary) hypertension; I25.2 Old myocardial infarction; N40.0 Benign prostatic hyperplasia without lower urinary tract symptoms; Z87.891 Personal history of nicotine dependence; Z79.4 Long term (current) use of insulin; Z79.82 Long term (current) use of aspirin; Z79.899 Other long term (current) drug therapy; Z88.0 Allergy status to penicillin; Z95.5 Presence of coronary angioplasty implant and graft
CPT/HCPCS: 36415; 71046; 80053; 82550; 82553; 83735; 84100; 84443; 84484; 85025; 85610; 85730; 93005; 96360; 96361; 99285

== ENCOUNTER 2018-02-25 17:45 | Inpatient (IN) | payer MEDICARE, OTHER ==
--- NOTE | 2018-02-25 18:20 | ED ---
General Adult HPI - General Chief complaint: Altered Mental Status Stated complaint: altered mental Time Seen by Provider: 02/25/18 18:20 Source: patient, EMS Mode of arrival: EMS Limitations: no limitations - History of Present Illness Initial comments: Willi Lewis is a 77-year-old morbidly obese male who presents to the emergency department today via EMS for evaluation of confusion. Patient states he is not certain why he is here, he states his called the ambulance but he does not know why. Patient is sleepy, but he wakes to voice, he is alert and oriented 3. reports that the patient has been experiencing intermittent episodes of significant confusion and twitching. She states the first episode occurred last month at which time he had a fall and was evaluated in our ER and subsequently discharged home. She states that since that time he has episodes where he wakes up very confused, he makes no sense when he is talking and he tends to be twitching. She notes that sometimes the twitching is just in his arms and sometimes it seems to be his whole body. The patient is awake and alert but confused during these episodes of twitching. He is able to talk. She states that he is progressively become weaker and unable to walk. At time she has had to call EMS to help transfer the patient the car into the house because he is too weak to ambulate independently. Patient denies any fevers, chills, headache, chest pain, trouble breathing, he denies any change in appetite, he denies any abdominal pain nausea or vomiting. He does state that he has a large hernia in his abdomen which pokes out when he stands up but it doesn't cause him any pain or discomfort. This is unchanged recently. - Related Data Home Medications Medication Instructions Recorded Confirmed Glimepiride 2 mg PO BID-W/MEALS 03/28/15 02/25/18 Lisinopril 20 mg PO DAILY 03/28/15 02/25/18 metFORMIN HCL 500 mg PO TID 03/28/15 02/25/18 Aspirin EC [Ecotrin] 81 mg PO DAILY 12/04/16 02/25/18 Cetirizine HCl [Zyrtec] 10 mg PO HS 12/04/16 02/25/18 Multivitamins, Thera [Multivitamin 1 tab PO DAILY 12/04/16 02/25/18 (formulary)] Omeprazole 40 mg PO BID 12/04/16 02/25/18 Polyethylene Glycol 3350 [Miralax] 17 gm PO DAILY 12/04/16 02/25/18 Tamsulosin HCl [Flomax] 0.4 mg PO DAILY 12/04/16 02/25/18 traZODone HCL 300 mg PO HS 12/04/16 02/25/18 Metoprolol Succinate (ER) [Toprol 50 mg PO HS 04/26/17 02/25/18 Xl] Atorvastatin [Lipitor] 10 mg PO HS 10/24/17 02/25/18 Insulin Glargine,Hum.rec.anlog 40 unit SQ HS 10/24/17 02/25/18 [Lantus Solostar] Pregabalin [Lyrica] 75 mg PO DAILY PRN 10/24/17 02/25/18 Baclofen [Lioresal] 20 mg PO TID 11/26/17 02/25/18 Furosemide [Lasix] 40 mg PO DAILY 11/26/17 02/25/18 Potassium Chloride ER [K-Dur 20] 20 meq PO BID 11/26/17 02/25/18 HYDROcodone/APAP 10-325MG [[place] 1 tab PO QID PRN 02/25/18 02/25/18 10-325] sitaGLIPtin [Januvia] 100 mg PO DAILY 02/25/18 02/25/18 Previous Rx's Medication Instructions Recorded Nitroglycerin Sl Tabs [Nitrostat] 0.4 mg SUBLINGUAL Q5M PRN #25 tab 03/31/15 Allergies Allergy/AdvReac Type Severity Reaction Status Date / Time Penicillins Allergy Rash/Hives Verified 02/25/18 18:50 Review of Systems ROS Statement: Those systems with pertinent positive or pertinent negative responses have been documented in the HPI. ROS Other: All systems not noted in ROS Statement are negative. Constitutional: Denies: weight change ENT: Denies: throat pain Respiratory: Denies: cough, wheezes Cardiovascular: Denies: chest pain Endocrine: Reports: fatigue Gastrointestinal: Denies: abdominal pain, nausea, vomiting Musculoskeletal: Denies: back pain Skin: Denies: rash Neurological: Reports: weakness (generalized), confusion, abnormal gait, other ( tremor) Psychiatric: Denies: anxiety, depression Hematological/Lymphatic: Denies: easy bleeding, easy bruising Past Medical History Past Medical History: Diabetes Mellitus, Hypertension, Myocardial Infarction ([place] ) Additional Past Medical History / Comment(s): CHRONIC BACK PAIN, ENLARGED PROSTATE Last Myocardial Infarction Date:: 03/2015 History of Any Multi-Drug Resistant Organisms: None Reported Past Surgical History: Appendectomy, Back Surgery, Heart Catheterization With Stent, Orthopedic Surgery Additional Past Surgical History / Comment(s): HEART CATH WITH STENTS x2 (03/2015 ), BACK SURG X2. Past Anesthesia/Blood Transfusion Reactions: No Reported Reaction Date of Last Stent Placement:: 03/2015 Past Psychological History: No Psychological Hx Reported Smoking Status: Former smoker Past Alcohol Use History: None Reported Past Drug Use History: None Reported - Past Family History Mother Family Medical History: No Reported History General Exam Limitations: no limitations General appearance: lethargic (sleeping but wakes to voice and answers questions ) Head exam: Present: atraumatic, normocephalic Eye exam: Present: PERRL, EOMI ENT exam: Present: normal exam Neck exam: Present: full ROM Respiratory exam: Present: other (decreased inspiration due to abdominal girth ) . Absent: respiratory distress Cardiovascular Exam: Present: regular rate GI/Abdominal exam: Present: normal bowel sounds. Absent: guarding, rebound, rigid Rectal exam: Present: deferred Extremities exam: Present: normal capillary refill. Absent: pedal edema, calf tenderness Neurological exam: Present: oriented X3, CN II-XII intact, other (unable to hold all extremities up for >3 seconds, myoclonus in arms and legs noted) Psychiatric exam: Present: depressed, flat affect Skin exam: Present: warm, dry Course Vital Signs 02/25/18 02/25/18 02/25/18 17:50 18:25 19:07 Temperature 97.8 F 98.7 F Pulse Rate 64 64 68 Respiratory 18 18 18 Rate Blood Pressure 115/55 103/58 O2 Sat by Pulse 90 L 93 L 96 Oximetry 02/25/18 02/25/18 19:31 20:22 Temperature Pulse Rate 60 Respiratory 18 Rate Blood Pressure 136/72 154/70 O2 Sat by Pulse 96 Oximetry EKG Findings - EKG Comments: EKG Findings:: EKG done at 1808 - rate is 65, rhythm is sinus, there is a normal axis, IL is 218, QRS 90 QTc 420, there is a first-degree AV block. There is no acute ST elevations or depressions. No evidence of acute ischemia or infarction Medical Decision Making - Medical Decision Making The patient was seen and evaluated, history was obtained from the patient, and medical record patient is morbidly obese with past medical history as noted , having episodes of confusion and tremors. is expressed concern that he may be having TIAs though he doesn't have any focal neurologic deficits with these episodes. Patient has not underwent any evaluation for these symptoms. Patient with progressively worsening weakness, intermittent confusion and tremor or myocolonus Labs reveal hyperglycemia, elevated kidney function with mildly elevated potassium at 5.7 ABG reveals mild respiratory acidosis due to his not elevated 2. which would cause CO2 narcosis CT head reveals no acute intracranial process, an old lacunar infarct which is been previously seen on CT At this time I cannot identify an emergent cause of the patient's mental status change, weakness or confusion. I do feel the patient requires further evaluation by neurology. Patient care was discussed with Dr. Rodriguez who agrees with the plan for admission with a consult to neurology, also expresses concern that patient may be exhibiting signs of narcolepsy and requests a consult to pulmonology. Consult and admission orders were placed. She was placed on the insulin sliding scale, repeat morning labs were ordered. - Lab Data Result diagrams: 02/25/18 18:15 02/25/18 18:15 Lab Results 02/25/18 02/25/18 02/25/18 Range/Units 18:15 18:15 18:15 WBC 8.0 (3.8-10.6) k/uL RBC 4.37 (4.30-5.90) m/uL Hgb 12.5 L (13.0-17.5) gm/dL Hct 39.0 (39.0-53.0) % MCV 89.3 (80.0-100.0) fL MCH 28.6 (25.0-35.0) pg MCHC 32.0 (31.0-37.0) g/dL RDW 16.1 H (11.5-15.5) % Plt Count 164 (150-450) k/uL Neutrophils % 75 % Lymphocytes % 11 % Monocytes % 9 % Eosinophils % 3 % Basophils % 0 % Neutrophils # 5.9 (1.3-7.7) k/uL Lymphocytes # 0.9 L (1.0-4.8) k/uL Monocytes # 0.7 (0-1.0) k/uL Eosinophils # 0.2 (0-0.7) k/uL Basophils # 0.0 (0-0.2) k/uL Hypochromasia Moderate Anisocytosis Slight PT (9.0-12.0) sec INR (<1.2) APTT (22.0-30.0) sec Sample Site ABG pH (7.35-7.45) ABG pCO2 (35-45) mmHg ABG pO2 (83-108) mmHg ABG HCO3 (21-25) mmol/L ABG Total CO2 (19-24) mmol/L ABG O2 Saturation (94-97) % ABG Base Excess mmol/L Lj Test FiO2 % Sodium 133 L (137-145) mmol/L Potassium 5.7 H (3.5-5.1) mmol/L Chloride 99 (98-107) mmol/L Carbon Dioxide 24 (22-30) mmol/L Anion Gap 10 mmol/L BUN 33 H (9-20) mg/dL Creatinine 1.80 H (0.66-1.25) mg/dL Est GFR (CKD-EPI)AfAm 42 (>60 ml/min/1.73 sqM) Est GFR (CKD-EPI)NonAf 36 (>60 ml/min/1.73 sqM) Glucose 281 H (74-99) mg/dL Calcium 8.9 (8.4-10.2) mg/dL Magnesium 2.1 (1.6-2.3) mg/dL Total Bilirubin 0.7 (0.2-1.3) mg/dL AST 49 (17-59) U/L ALT 56 (21-72) U/L Alkaline Phosphatase 50 (38-126) U/L Troponin I (0.000-0.034) ng/mL NT-Pro-B Natriuret Pep 65 pg/mL Total Protein 7.2 (6.3-8.2) g/dL Albumin 4.1 (3.5-5.0) g/dL Urine Color Urine Appearance (Clear) Urine pH (5.0-8.0) Ur Specific [place] (1.001-1.035) Urine Protein (Negative) Urine Glucose (UA) (Negative) Urine Ketones (Negative) Urine Blood (Negative) Urine Nitrite (Negative) Urine Bilirubin (Negative) Urine Urobilinogen (<2.0) mg/dL Ur Leukocyte Esterase (Negative) Urine WBC (0-5) /hpf Hyaline Casts (0-2) /lpf Urine Mucus (None) /hpf 02/25/18 02/25/18 02/25/18 Range/Units 18:15 18:15 19:10 WBC (3.8-10.6) k/uL RBC (4.30-5.90) m/uL Hgb (13.0-17.5) gm/dL Hct (39.0-53.0) % MCV (80.0-100.0) fL MCH (25.0-35.0) pg MCHC (31.0-37.0) g/dL RDW (11.5-15.5) % Plt Count (150-450) k/uL Neutrophils % % Lymphocytes % % Monocytes % % Eosinophils % % Basophils % % Neutrophils # (1.3-7.7) k/uL Lymphocytes # (1.0-4.8) k/uL Monocytes # (0-1.0) k/uL Eosinophils # (0-0.7) k/uL Basophils # (0-0.2) k/uL Hypochromasia Anisocytosis PT 9.5 (9.0-12.0) sec INR 1.0 (<1.2) APTT 18.8 L (22.0-30.0) sec Sample Site ABG pH (7.35-7.45) ABG pCO2 (35-45) mmHg ABG pO2 (83-108) mmHg ABG HCO3 (21-25) mmol/L ABG Total CO2 (19-24) mmol/L ABG O2 Saturation (94-97) % ABG Base Excess mmol/L Lj Test FiO2 % Sodium (137-145) mmol/L Potassium (3.5-5.1) mmol/L Chloride (98-107) mmol/L Carbon Dioxide (22-30) mmol/L Anion Gap mmol/L BUN (9-20) mg/dL Creatinine (0.66-1.25) mg/dL Est GFR (CKD-EPI)AfAm (>60 ml/min/1.73 sqM) Est GFR (CKD-EPI)NonAf (>60 ml/min/1.73 sqM) Glucose (74-99) mg/dL Calcium (8.4-10.2) mg/dL Magnesium (1.6-2.3) mg/dL Total Bilirubin (0.2-1.3) mg/dL AST (17-59) U/L ALT (21-72) U/L Alkaline Phosphatase (38-126) U/L Troponin I <0.012 (0.000-0.034) ng/mL NT-Pro-B Natriuret Pep pg/mL Total Protein (6.3-8.2) g/dL Albumin (3.5-5.0) g/dL Urine Color Yellow Urine Appearance Clear (Clear) Urine pH 5.5 (5.0-8.0) Ur Specific [place] 1.016 (1.001-1.035) Urine Protein Trace H (Negative) Urine Glucose (UA) 3+ H (Negative) Urine Ketones Negative (Negative) Urine Blood Negative (Negative) Urine Nitrite Negative (Negative) Urine Bilirubin Negative (Negative) Urine Urobilinogen <2.0 (<2.0) mg/dL Ur Leukocyte Esterase Trace H (Negative) Urine WBC 1 (0-5) /hpf Hyaline Casts 47 H (0-2) /lpf Urine Mucus Rare H (None) /hpf 02/25/18 Range/Units 19:56 WBC (3.8-10.6) k/uL RBC (4.30-5.90) m/uL Hgb (13.0-17.5) gm/dL Hct (39.0-53.0) % MCV (80.0-100.0) fL MCH (25.0-35.0) pg MCHC (31.0-37.0) g/dL RDW (11.5-15.5) % Plt Count (150-450) k/uL Neutrophils % % Lymphocytes % % Monocytes % % Eosinophils % % Basophils % % Neutrophils # (1.3-7.7) k/uL Lymphocytes # (1.0-4.8) k/uL Monocytes # (0-1.0) k/uL Eosinophils # (0-0.7) k/uL Basophils # (0-0.2) k/uL Hypochromasia Anisocytosis PT (9.0-12.0) sec INR (<1.2) APTT (22.0-30.0) sec Sample Site Left Radial ABG pH 7.34 L (7.35-7.45) ABG pCO2 46 H (35-45) mmHg ABG pO2 81 L (83-108) mmHg ABG HCO3 25 (21-25) mmol/L ABG Total CO2 26 H (19-24) mmol/L ABG O2 Saturation 95.7 (94-97) % ABG Base Excess -0.8 mmol/L Lj Test Yes FiO2 28 % Sodium (137-145) mmol/L Potassium (3.5-5.1) mmol/L Chloride (98-107) mmol/L Carbon Dioxide (22-30) mmol/L Anion Gap mmol/L BUN (9-20) mg/dL Creatinine (0.66-1.25) mg/dL Est GFR (CKD-EPI)AfAm (>60 ml/min/1.73 sqM) Est GFR (CKD-EPI)NonAf (>60 ml/min/1.73 sqM) Glucose (74-99) mg/dL Calcium (8.4-10.2) mg/dL Magnesium (1.6-2.3) mg/dL Total Bilirubin (0.2-1.3) mg/dL AST (17-59) U/L ALT (21-72) U/L Alkaline Phosphatase (38-126) U/L Troponin I (0.000-0.034) ng/mL NT-Pro-B Natriuret Pep pg/mL Total Protein (6.3-8.2) g/dL Albumin (3.5-5.0) g/dL Urine Color Urine Appearance (Clear) Urine pH (5.0-8.0) Ur Specific [place] (1.001-1.035) Urine Protein (Negative) Urine Glucose (UA) (Negative) Urine Ketones (Negative) Urine Blood (Negative) Urine Nitrite (Negative) Urine Bilirubin (Negative) Urine Urobilinogen (<2.0) mg/dL Ur Leukocyte Esterase (Negative) Urine WBC (0-5) /hpf Hyaline Casts (0-2) /lpf Urine Mucus (None) /hpf Disposition Clinical Impression: Confusion, Generalized weakness, Gait instability, Tremor, Hyperglycemia, Chronic kidney disease (CKD), Hyperkalemia, Morbid obesity Disposition: ADMITTED IP TO THIS HOSP Referrals: Tank Broussard DO [Primary Care Provider] - 1-2 days Time of Disposition: 20:48
[2018-02-25 18:55] LABS: Anisocytosis Slight; Basophils % (A) 0 %; Eosinophils # (A) 0.2 k/uL (0-0.7); Eosinophils % (A) 3 %; HGB 12.5 gm/dL (13.0-17.5); Hypochromasia Moderate; Lymphocytes # (A) 0.9 k/uL (1.0-4.8); Lymphocytes % (A) 11 %; MCH 28.6 pg (25.0-35.0); MCV 89.3 fL (80.0-100.0); Mean Platelet Volume 8.8; Monocytes # (A) 0.7 k/uL (0-1.0); Monocytes % (A) 9 %; Neutrophils # (A) 5.9 k/uL (1.3-7.7); Neutrophils % (A) 75 %; Platelet Count 164 k/uL (150-450); RBC 4.37 m/uL (4.30-5.90); RDW 16.1 % (11.5-15.5)
[2018-02-25 19:05] LABS: Albumin 4.1 g/dL (3.5-5.0); Calcium 8.9 mg/dL (8.4-10.2); Magnesium 2.1 mg/dL (1.6-2.3); Potassium 5.7 mmol/L (3.5-5.1); Total Bilirubin 0.7 mg/dL (0.2-1.3); Total Protein 7.2 g/dL (6.3-8.2)
[2018-02-25 19:07] LABS: Prothrombin Time 9.5 sec (9.0-12.0)
[2018-02-25 19:13] LABS: Partial Thromboplastin Time 18.8 sec (22.0-30.0)
[2018-02-25] MEDS ORDERED: SODIUM CHLORIDE 0.9% 1,000 ML IV ONE (19:23)
[2018-02-25 19:35] LABS: Appearance,Urine Clear (Clear); Bilirubin,Urine Negative (Negative); Blood,Urine Negative (Negative); Color,Urine Yellow; Glucose,Urine (UA) 3+ (Negative); Hyaline Casts,Urine 47 /lpf (0-2); Ketones,Urine Negative (Negative); Leukocyte Esterase,Urine Trace (Negative); Mucus,Urine Rare /hpf; Nitrite,Urine Negative (Negative); PH, Urine 5.5 (5.0-8.0); Protein,Urine Trace (Negative); Specific Gravity,Urine 1.016 (1.001-1.035); Urobilinogen,Urine <2.0 mg/dL (<2.0); WBC,Urine 1 /hpf (0-5)
[2018-02-25 20:01] LABS: ABG Base Excess -0.8 mmol/L; ABG HCO3 25 mmol/L (21-25); ABG Oxygen Saturation 95.7 % (94-97); ABG PCO2 46 mmHg (35-45); ABG PH 7.34 (7.35-7.45); ABG PO2 81 mmHg (83-108); ABG TCO2 26 mmol/L (19-24)
--- NOTE | 2018-02-25 20:03 | CT ---
EXAMINATION TYPE: CT brain wo con DATE OF EXAM: 02/25/2018 COMPARISON: 10/24/2017 HISTORY: Altered mental status. CT DLP: 1031.4 mGycm Automated exposure control for dose reduction was used. FINDINGS: There is cerebral cortical atrophy. There is no mass effect nor midline shift. There is no sign of in tracranial hemorrhage. There is 1 cm lacunar infarct left caudate nucleus. IMPRESSION: CEREBRAL ATROPHY. OLD LACUNAR INFARCT. NO CHANGE COMPARED TO OLD EXAM.
[2018-02-25] MEDS ORDERED: NALOXONE 0.4 MG/ML 1 ML VIAL IV PRN (20:41)
[2018-02-25 21:43] LABS: Glucose,Whole Blood 205 mg/dL (75-99)
[2018-02-25] MEDS: INSULIN ASPART 100 UNIT/ML 1 ML 10 ML VIAL SQ SCH (22:18)
[2018-02-26 03:36] LABS: Glucose,Whole Blood 301 mg/dL (75-99)
[2018-02-26 07:07] LABS: Glucose,Whole Blood 218 mg/dL (75-99)
[2018-02-26] MEDS: INSULIN ASPART 100 UNIT/ML 1 ML 10 ML VIAL SQ SCH ×4 (08:40→21:45)
[2018-02-26 09:07] LABS: Basophils % (A) 0 %; Eosinophils # (A) 0.2 k/uL (0-0.7); Eosinophils % (A) 2 %; HCT 43.1 % (39.0-53.0); HGB 13.6 gm/dL (13.0-17.5); Hypochromasia Slight; Lymphocytes % (A) 11 %; MCH 27.7 pg (25.0-35.0); MCHC 31.5 g/dL (31.0-37.0); Mean Platelet Volume 8.4; Monocytes # (A) 0.7 k/uL (0-1.0); Monocytes % (A) 8 %; Neutrophils # (A) 6.8 k/uL (1.3-7.7); Neutrophils % (A) 76 %; Platelet Count 215 k/uL (150-450); RBC 4.89 m/uL (4.30-5.90); RDW 15.8 % (11.5-15.5); WBC 8.9 k/uL (3.8-10.6)
[2018-02-26 09:17] LABS: Calcium 9.8 mg/dL (8.4-10.2); Potassium 4.8 mmol/L (3.5-5.1)
[2018-02-26] MEDS ORDERED: NITROGLYCERIN SL TABS 0.4 MG TAB SUBLINGUAL PRN (09:26)
[2018-02-26] MEDS ORDERED: BACLOFEN 10 MG TAB PO PRN (09:26)
[2018-02-26] MEDS ORDERED: PREGABALIN 75 MG CAP PO PRN (09:26)
--- NOTE | 2018-02-26 10:29 | P.HPIM ---
History of Present Illness H&P Date: 02/26/18 Chief Complaint: Altered mental status, CVA/TIA, narcolepsy, COPD, CAD, diabetes , acute kidn 77-year-old morbidly obese male one of Dr. Broussard patient who brought to demurs department at [facility] by EMS for evaluation of altered mental status and confusion according to his he woke up from his sleep had severe confusion was not alert or oriented continue to be so sleepy and drowsy could not ambulate and walk teas a bathroom had quite bed urinary retention at the time had more confusion and delusion for non-existing event in the present and demand talking to his family about problem did not exist. His son and the felt he had significant change in his mentation compared to his regular also kept having episode of twitching and not been able to ambulate ended up calling EMS found to have mild hypoxia ended up coming to the emergency department at [facility]. His workup showed mild hypoxia his sugar was normal CAT scan of the brain did not show any abnormality of the time patient was admitted for the above problem. Review of Systems CONSTITUTIONAL: Morbidly obese does not look in any respiratory distress. EYES: No icterus sclerae, no conjunctivitis. EARS, NOSE, MOUTH, THROAT, and FACE: No sore throat, lymphadenopathy, carotid bruits or deformity. RESPIRATORY: Mild shortness of breath and wheezes. CARDIOVASCULAR: Known to have coronary artery disease and atherosclerotic heart disease has been on medical management. GASTROINTESTINAL: No Abd pain, Nausea or vomiting, no Diarrhea or constipation, No GI Bleed, no distention or masses. GENITOURINARY: Negative for Hematuria or UTI, no kidney stones. INTEGUMENT/BREAST: Edema and chronic arthralgia. HEMATOLOGIC/LYMPHATIC: Negative for bleed or purpura. MUSCULOSKELTAL: Negative for Myalgia or arthralgia. NEURLOGICAL: Positive altered mental status, question of seizure no syncope had generalized weakness. BEHAVIORAL/PSYCH: Negative. ENDOCRINE: Negative. Past Medical History Past Medical History: Diabetes Mellitus, Hypertension, Myocardial Infarction (MD ) Additional Past Medical History / Comment(s): CHRONIC BACK PAIN, ENLARGED PROSTATE Last Myocardial Infarction Date:: 03/2015 History of Any Multi-Drug Resistant Organisms: None Reported Past Surgical History: Appendectomy, Back Surgery, Heart Catheterization With Stent, Orthopedic Surgery Additional Past Surgical History / Comment(s): HEART CATH WITH STENTS x2 (03/2015 ), BACK SURG X2. Past Anesthesia/Blood Transfusion Reactions: No Reported Reaction Date of Last Stent Placement:: 03/2015 Past Psychological History: No Psychological Hx Reported Smoking Status: Former smoker Past Alcohol Use History: None Reported Additional Past Alcohol Use History / Comment(s): QUIT SMOKING 5 YEARS AGO, SMOKED APPROX 50 YEARS., >2 PPD. Past Drug Use History: None Reported - Past Family History Mother Family Medical History: No Reported History Medications and Allergies Home Medications Medication Instructions Recorded Confirmed Type Glimepiride 2 mg PO BID-W/MEALS 03/28/15 02/25/18 History Lisinopril 20 mg PO DAILY 03/28/15 02/25/18 History metFORMIN HCL 500 mg PO TID 03/28/15 02/25/18 History Nitroglycerin Sl Tabs [Nitrostat] 0.4 mg SUBLINGUAL Q5M PRN #25 tab 03/31/15 Rx Aspirin EC [Ecotrin] 81 mg PO DAILY 12/04/16 02/25/18 History Cetirizine HCl [Zyrtec] 10 mg PO HS 12/04/16 02/25/18 History Multivitamins, Thera [Multivitamin 1 tab PO DAILY 12/04/16 02/25/18 History (formulary)] Omeprazole 40 mg PO BID 12/04/16 02/25/18 History Polyethylene Glycol 3350 [Miralax] 17 gm PO DAILY 12/04/16 02/25/18 History Tamsulosin HCl [Flomax] 0.4 mg PO DAILY 12/04/16 02/25/18 History traZODone HCL 300 mg PO HS 12/04/16 02/25/18 History Metoprolol Succinate (ER) [Toprol 50 mg PO HS 04/26/17 02/25/18 History Xl] Atorvastatin [Lipitor] 10 mg PO HS 10/24/17 02/25/18 History Insulin Glargine,Hum.rec.anlog 40 unit SQ HS 10/24/17 02/25/18 History [Lantus Solostar] Pregabalin [Lyrica] 75 mg PO DAILY PRN 10/24/17 02/25/18 History Baclofen [Lioresal] 20 mg PO TID 11/26/17 02/25/18 History Furosemide [Lasix] 40 mg PO DAILY 11/26/17 02/25/18 History Potassium Chloride ER [K-Dur 20] 20 meq PO BID 11/26/17 02/25/18 History HYDROcodone/APAP 10-325MG [[place] 1 tab PO QID PRN 02/25/18 02/25/18 History 10-325] sitaGLIPtin [Januvia] 100 mg PO DAILY 02/25/18 02/25/18 History Allergies Allergy/AdvReac Type Severity Reaction Status Date / Time Penicillins Allergy Rash/Hives Verified 02/25/18 18:50 Physical Exam Vitals: Vital Signs Temp Pulse Pulse Resp BP BP BP 02/26/18 06:59 99.7 F H 87 18 137/73 02/25/18 23:00 98.1 F 74 19 113/81 02/25/18 20:22 60 18 154/70 02/25/18 19:31 136/72 02/25/18 19:07 98.7 F 68 18 02/25/18 18:25 64 18 103/58 02/25/18 17:50 97.8 F 64 18 115/55 Pulse Ox 02/26/18 06:59 93 L 02/25/18 23:00 94 L 02/25/18 20:22 96 02/25/18 19:31 02/25/18 19:07 96 02/25/18 18:25 93 L 02/25/18 17:50 90 L Intake and Output 02/25/18 02/26/18 02/26/18 22:59 06:59 14:59 Intake Total 200 Output Total 500 Balance -500 200 Intake: Oral 200 Output: Urine 500 Uretheral ([place]) 500 Other: # Voids 2 2 # Bowel Movements 1 Weight 136.531 kg General Appearance: Alert, cooperative, no distress, appears stated age. And morbid obesity. Neck HEENT: Supple, no lymphadenopathy, no thyroid enlargement, no carotid bruits. Lungs: Decreased breaths home bilaterally with fine rhonchi mild expiratory wheezes Chest Wall: Decreased expansion bilaterally. Heart: Regular rate and rhythm, S1, S2 normal, positive S3, positive systolic murmur, positive JVD. Back: Symmetric, no curvature, ROM normal, no CVA tenderness. Abdomen: Soft, distended with large ventral hernia worsening on the right than the left, mild epigastric discomfort. Extremities: Slight discoloration with 1+ edema and worsening arthralgia with crepitus in both knees with slight limitation of both hips as well. Pulses: 2+ and symmetric. Skin: Skin color, texture, tugor normal, no rashes or lesions. Neurologic: Alert, slightly confused, moving all his 4 extremity has more weakness in the lower extremity and upper extremity. Results CBC & Chem 7: 02/26/18 08:29 02/26/18 08:29 Labs: Abnormal Lab Results - Last 24 Hours (Table) 02/25/18 02/25/18 02/25/18 Range/Units 18:15 18:15 18:15 Hgb 12.5 L (13.0-17.5) gm/dL RDW 16.1 H (11.5-15.5) % Lymphocytes # 0.9 L (1.0-4.8) k/uL APTT 18.8 L (22.0-30.0) sec ABG pH (7.35-7.45) ABG pCO2 (35-45) mmHg ABG pO2 (83-108) mmHg ABG Total CO2 (19-24) mmol/L Sodium 133 L (137-145) mmol/L Potassium 5.7 H (3.5-5.1) mmol/L BUN 33 H (9-20) mg/dL Creatinine 1.80 H (0.66-1.25) mg/dL Glucose 281 H (74-99) mg/dL POC Glucose (mg/dL) (75-99) mg/dL Urine Protein (Negative) Urine Glucose (UA) (Negative) Ur Leukocyte Esterase (Negative) Hyaline Casts (0-2) /lpf Urine Mucus (None) /hpf 02/25/18 02/25/18 02/25/18 Range/Units 19:10 19:56 21:41 Hgb (13.0-17.5) gm/dL RDW (11.5-15.5) % Lymphocytes # (1.0-4.8) k/uL APTT (22.0-30.0) sec ABG pH 7.34 L (7.35-7.45) ABG pCO2 46 H (35-45) mmHg ABG pO2 81 L (83-108) mmHg ABG Total CO2 26 H (19-24) mmol/L Sodium (137-145) mmol/L Potassium (3.5-5.1) mmol/L BUN (9-20) mg/dL Creatinine (0.66-1.25) mg/dL Glucose (74-99) mg/dL POC Glucose (mg/dL) 205 H (75-99) mg/dL Urine Protein Trace H (Negative) Urine Glucose (UA) 3+ H (Negative) Ur Leukocyte Esterase Trace H (Negative) Hyaline Casts 47 H (0-2) /lpf Urine Mucus Rare H (None) /hpf 02/26/18 02/26/18 02/26/18 Range/Units 03:33 07:02 08:29 Hgb (13.0-17.5) gm/dL RDW 15.8 H (11.5-15.5) % Lymphocytes # (1.0-4.8) k/uL APTT (22.0-30.0) sec ABG pH (7.35-7.45) ABG pCO2 (35-45) mmHg ABG pO2 (83-108) mmHg ABG Total CO2 (19-24) mmol/L Sodium (137-145) mmol/L Potassium (3.5-5.1) mmol/L BUN (9-20) mg/dL Creatinine (0.66-1.25) mg/dL Glucose (74-99) mg/dL POC Glucose (mg/dL) 301 H 218 H (75-99) mg/dL Urine Protein (Negative) Urine Glucose (UA) (Negative) Ur Leukocyte Esterase (Negative) Hyaline Casts (0-2) /lpf Urine Mucus (None) /hpf 02/26/18 Range/Units 08:29 Hgb (13.0-17.5) gm/dL RDW (11.5-15.5) % Lymphocytes # (1.0-4.8) k/uL APTT (22.0-30.0) sec ABG pH (7.35-7.45) ABG pCO2 (35-45) mmHg ABG pO2 (83-108) mmHg ABG Total CO2 (19-24) mmol/L Sodium (137-145) mmol/L Potassium (3.5-5.1) mmol/L BUN 24 H (9-20) mg/dL Creatinine (0.66-1.25) mg/dL Glucose 224 H (74-99) mg/dL POC Glucose (mg/dL) (75-99) mg/dL Urine Protein (Negative) Urine Glucose (UA) (Negative) Ur Leukocyte Esterase (Negative) Hyaline Casts (0-2) /lpf Urine Mucus (None) /hpf Thrombosis Risk Factor Assmnt - DVT/VTE Prophylaxis DVT/VTE Prophylaxis: Pharmacologic Prophylaxis ordered, Mechanical Prophylaxis ordered - Choose All That Apply Any of the Below Risk Factors Present?: Yes Each Factor Represents 1 point: Obesity (BMI >25) Other Risk Factors: Yes Each Risk Factor Represents 3 Points: Age 75 years or older Other congenital or acquired thrombophilia - If yes, enter type in comment: No Thrombosis Risk Factor Assessment Total Risk Factor Score: 4 Thrombosis Risk Factor Assessment Level: Moderate Risk Assessment and Plan Plan: 1 change mental status: Combination of mild hypoxia, possibility of TIA and most likely evidence for narcolepsy and or sleep apnea which might need to be treated soon. Continue O2 continue supportive care and further workup for TIA and CVA to be done. 2 TIA/CVA: Consult neurology, CAT scan of the brain did not show any major abnormality except age-related microvascular finding. Patient will be going for heart monitor, echo and carotid ultrasound. 3 narcolepsy/sleep apnea: With his history evidence-based is extremely high, will consult pulmonary and if patient can benefit from having BiPAP at home before doing testing will be a good idea otherwise he might need to have an outpatient sleep study before deciding on pressurize device to help reduce his sleep apnea and help to narcolepsy. 4 mild COPD: Patient can benefit from bronchodilator. 5 CAD: Post angioplasty and stent placement, he seen dry boss at [facility] and he is on secondary prevention doing well. 6 type 2 diabetes on insulin: Continue Levemir along with NovoLog still on Januvia and metformin. 7 acute kidney injury with stage III running kidney disease: Gentle hydration repeat BUN/creatinine 24 hours. 8 chronic edema: Most likely diastolic congestive heart failure, remain on furosemide along with lisinopril and metoprolol. 9 BPH: Patient still on Flomax 0.4 mg daily. 10 chronic back pain post 3 back surgery still on chronic pain management apparently patient is seen Dr. Olguin for chronic pain management and has been on hydrocodone, Lyrica baclofen. 11 severe GERD: Has been on Protonix 40 mg a day. 13 hyperlipidemia: Continue patient on atorvastatin 10 mg daily. 14 DVT prophylaxis: Patient will be on heparin subcutaneous. CODE STATUS: Full code. Admit patient to inpatient status for more than 2 nights.
[2018-02-26] MEDS: GLIMEPIRIDE 2 MG TAB PO SCH ×2 (10:47→17:19)
[2018-02-26] MEDS: LISINOPRIL 20 MG TAB PO SCH (10:48)
[2018-02-26] MEDS: PANTOPRAZOLE 40 MG TABLET PO SCH ×2 (10:48→21:45)
[2018-02-26] MEDS: LINAGLIPTIN 5 MG TABLET PO SCH (10:48)
[2018-02-26] MEDS: TAMSULOSIN 0.4 MG CAP.ER.24H PO SCH (10:48)
[2018-02-26] MEDS: DOCUSATE 100 MG CAP PO SCH (10:48)
[2018-02-26] MEDS: ASPIRIN 81 MG PO SCH (10:48)
[2018-02-26] MEDS: POLYETHYLENE GLYCOL 3350 17 GM POWD.PACK PO SCH (10:50)
[2018-02-26] MEDS: HYDROcodone/APAP 10-325MG 1 EACH TAB PO PRN ×2 (10:52→17:48)
--- NOTE | 2018-02-26 11:41 | ECHOF ---
Referral Reason:lvfunction MEASUREMENTS -------- HEIGHT: 177.8 cm WEIGHT: 136.5 kg BP: 137/73 RVIDd: 3.7 cm (< 3.3) IVSd: 1.5 cm (0.6 - 1.1) LVIDd: 4.2 cm (3.9 - 5.3) LVPWd: 1.3 cm (0.6 - 1.1) IVSs: 1.6 cm LVIDs: 3.5 cm LVPWs: 1.5 cm Ao Diam: 3.9 cm (2.0 - 3.7) AV Cusp: 2.1 cm (1.5 - 2.6) LA Diam: 3.7 cm (2.7 - 3.8) MV E Torres: 0.56 m/s MV DecT: 278 ms MV A Torres: 0.88 m/s MV E/A Ratio: 0.63 RAP: 5.00 mmHg RVSP: 11.81 mmHg FINDINGS -------- Sinus rhythm. This was a technically difficult study with suboptimal views. The left ventricular size is normal. There is mild concentric left ventricular hypertrophy. Overa ll left ventricular systolic function is low-normal with, an EF between 50 - 55 %. The right ventricle is mildly enlarged. The left atrium was not well visualized. The right atrium was not well visualized. 3ml of Lumason was utilized for enhancement of images. There is mild aortic valve sclerosis. There is no evidence of aortic regurgitation. There is no e vidence of aortic stenosis. The mitral valve leaflets are mildly thickened. There is trace to mild mitral regurgitation. Trace tricuspid regurgitation present. Right ventricular systolic pressure is normal at < 35 mmHg. There is no evidence of pulmonary hypertension. The pulmonic valve was not well visualized. The aortic root is mildy dilated, up to 3.9 cm. IVC Not well visulized. There is no pericardial effusion. CONCLUSIONS -------- 1. Sinus rhythm. 2. This was a technically difficult study with suboptimal views. 3. The left ventricular size is normal. 4. There is mild concentric left ventricular hypertrophy. 5. Overall left ventricular systolic function is low-normal with, an EF between 50 - 55 %. 6. The right ventricle is mildly enlarged. 7. The left atrium was not well visualized. 8. The right atrium was not well visualized. 9. 3ml of Lumason was utilized for enhancement of images. 10. There is mild aortic valve sclerosis. 11. The mitral valve leaflets are mildly thickened. 12. There is trace to mild mitral regurgitation. 13. Trace tricuspid regurgitation present. 14. Right ventricular systolic pressure is normal at < 35 mmHg. 15. There is no evidence of pulmonary hypertension. 16. The pulmonic valve was not well visualized. 17. The aortic root is mildy dilated, up to 3.9 cm. 18. IVC Not well visulized. 19. There is no pericardial effusion. [employer]ER: Dragan Mcnair RDCS
[2018-02-26 12:44] LABS: Glucose,Whole Blood 269 mg/dL (75-99)
--- NOTE | 2018-02-26 13:17 | US ---
EXAMINATION TYPE: US carotid duplex BILAT DATE OF EXAM: 02/26/2018 COMPARISON: NONE CLINICAL HISTORY: mental status change. EXAM MEASUREMENTS: RIGHT: Peak Systolic Velocity (PSV) cm/sec ----- Right CCA: 52.0 ----- Right ICA: 124.2 ----- Right ECA: 152.9 ICA/CCA ratio: 2.4 RIGHT: End Diastole cm/sec ----- Right CCA: 9.2 ----- Right ICA: 28.9 ----- Right ECA: 11.0 LEFT: Peak Systolic Velocity (PSV) cm/sec ----- Left CCA: 72.5 ----- Left ICA: 100.8 ----- Left ECA: 101.6 ICA/CCA ratio: 1.4 LEFT: End Diastole cm/sec ----- Left CCA: 11.1 ----- Left ICA: 30.9 ----- Left ECA: 11.1 VERTEBRALS (direction of flow): Right Vertebral: Antegrade Left Vertebral: Antegrade Rhythm: Normal Exam noted suboptimal per technologist due to patient's current medical condition and portable techni que. Grayscale images show moderate to severe eccentric plaque at right carotid bulb. Increased peak systolic velocity right external carotid artery is present. There is similar moderate to severe eccen tric hyperechoic plaque at left carotid bulb towards end of study mislabeled right. IMPRESSION: Suboptimal study, moderate to severe atherosclerotic change bilaterally without hemodyna mically significant stenosis clearly seen in either internal carotid artery.
[2018-02-26] MEDS: HEPARIN SODIUM,PORCINE 5,000 UNIT/ML 1 ML VIAL SQ SCH (17:19)
[2018-02-26 17:34] LABS: Glucose,Whole Blood 336 mg/dL (75-99)
[2018-02-26 18:01] LABS: Hemoglobin A1C 9.6 % (4.0-6.0)
--- NOTE | 2018-02-26 19:05 | P.CNPUL ---
History of Present Illness Consult date: 02/26/18 Requesting physician: Antoine Rodriguez Reason for consult: other Chief complaint: Confusion, excessive daytime sleepiness, leg weakness, rule out narcolepsy History of present illness: Mr. Lewis is a 77-year-old white male patient of Dr. Broussard, who was brought to the hospital per EMS on 02/25/2018 at 1745 for evaluation of intermittent confusion, twitching, and weakness in his bilateral knees, and inability to ambulate. Patient's states that he has been having the "spells" where he is waking up very confused, not making any sense, glassy eyes. She reports she is sleeping excessively during the day, and staying up of the night. She denies patient falling asleep unexpectedly during speaking, or eating. Patient denies waking up with a headache, does have a dry mouth on awakening, he snores. Patient has history of past medical history of diabetes mellitus, IPAP attention, myocardial infarction, coronary artery disease with previous stenting, enlarged prostate, he is a former smoker. He denies any history of obstructive sleep apnea, or any chronic lung condition. Patient has history of 3 back surgeries, and the last one was a year ago. Patient gained a significant amount of weight since his last surgery, he has been unable to sleep laying down, and has been sleeping in the recliner. Patient's reports gaining around 30 pounds in a year's time. Patient was never diagnosed with obstructive sleep apnea, or any other sleep disorders. Patient denied any fever or chills, denied any chest pain, denied any dyspnea. Denies any history of seizures, no history of strokes. Denies any history of arrhythmias. Brain CT showed cerebral atrophy, old lacunar infarct. This was compared to a previous CT brain from 10/24/2017. EEG was completed and showed sinus rhythm with first-degree AV block, and evidence of an old inferior wall infarct. 2-D echocardiogram and it showed preserved left ventricular systolic function with an EF of 50-55%, mild aortic valve sclerosis, trace to mild mitral and trace tricuspid regurgitation. No evidence of pulmonary hypertension, with right ventricular systolic pressure is less than 35 mmHg. Carotid Doppler was a suboptimal study, but moderate to severe atherosclerotic change was noted bilaterally without hemodynamically significant stenosis. Neurology was consulted. Lab work showed no evidence of leukocytosis, sodium was 133, potassium is 5.7, BUN was 33, and creatinine was 1.80. Renal profile had subsequently improved, with B1 of 24, and creatinine is 1.17. ProBNP was 65, troponin was negative 1, left sees were normal. Urinalysis showed 3+ glucose, trace leukocyte esterase. Blood gas was done in the emergency department and it showed pO2 of 81, pCO2 of 46, and pH of 7.34, as was done on 2 L of oxygen, and is consistent with mild hypercapnic respiratory failure. We're asked to see the patient in consultation for possible narcolepsy Review of Systems All systems: negative Constitutional: Denies chills, Denies fever Eyes: denies blurred vision, denies pain Ears, nose, mouth and throat: Denies headache, Denies sore throat Cardiovascular: Denies chest pain, Denies shortness of breath Respiratory: Denies cough Gastrointestinal: Denies abdominal pain, Denies diarrhea, Denies nausea, Denies vomiting Musculoskeletal: Reports gait dysfunction, Reports low back pain, Reports muscle weakness, Denies myalgias Integumentary: Denies pruritus, Denies rash Neurological: Reports change in mentation, Reports gait dysfunction, Reports memory loss, Reports motor disturbance, Denies numbness, Denies weakness Psychiatric: Denies anxiety, Denies depression Endocrine: Denies fatigue, Denies weight change Past Medical History Past Medical History: Diabetes Mellitus, Hypertension, Myocardial Infarction ([place] ) Additional Past Medical History / Comment(s): CHRONIC BACK PAIN, ENLARGED PROSTATE Last Myocardial Infarction Date:: 03/2015 History of Any Multi-Drug Resistant Organisms: None Reported Past Surgical History: Appendectomy, Back Surgery, Heart Catheterization With Stent, Orthopedic Surgery Additional Past Surgical History / Comment(s): HEART CATH WITH STENTS x2 (03/2015 ), BACK SURG X2. Past Anesthesia/Blood Transfusion Reactions: No Reported Reaction Date of Last Stent Placement:: 03/2015 Past Psychological History: No Psychological Hx Reported Smoking Status: Former smoker Past Alcohol Use History: None Reported Additional Past Alcohol Use History / Comment(s): QUIT SMOKING 5 YEARS AGO, SMOKED APPROX 50 YEARS., >2 PPD. Past Drug Use History: None Reported - Past Family History Mother Family Medical History: No Reported History Medications and Allergies Home Medications Medication Instructions Recorded Confirmed Type Glimepiride 2 mg PO BID-W/MEALS 03/28/15 02/25/18 History Lisinopril 20 mg PO DAILY 03/28/15 02/25/18 History metFORMIN HCL 500 mg PO TID 03/28/15 02/25/18 History Nitroglycerin Sl Tabs [Nitrostat] 0.4 mg SUBLINGUAL Q5M PRN #25 tab 03/31/15 Rx Aspirin EC [Ecotrin] 81 mg PO DAILY 12/04/16 02/25/18 History Cetirizine HCl [Zyrtec] 10 mg PO HS 12/04/16 02/25/18 History Multivitamins, Thera [Multivitamin 1 tab PO DAILY 12/04/16 02/25/18 History (formulary)] Omeprazole 40 mg PO BID 12/04/16 02/25/18 History Polyethylene Glycol 3350 [Miralax] 17 gm PO DAILY 12/04/16 02/25/18 History Tamsulosin HCl [Flomax] 0.4 mg PO DAILY 12/04/16 02/25/18 History traZODone HCL 300 mg PO HS 12/04/16 02/25/18 History Metoprolol Succinate (ER) [Toprol 50 mg PO HS 04/26/17 02/25/18 History Xl] Atorvastatin [Lipitor] 10 mg PO HS 10/24/17 02/25/18 History Insulin Glargine,Hum.rec.anlog 40 unit SQ HS 10/24/17 02/25/18 History [Lantus Solostar] Pregabalin [Lyrica] 75 mg PO DAILY PRN 10/24/17 02/25/18 History Baclofen [Lioresal] 20 mg PO TID 11/26/17 02/25/18 History Furosemide [Lasix] 40 mg PO DAILY 11/26/17 02/25/18 History Potassium Chloride ER [K-Dur 20] 20 meq PO BID 11/26/17 02/25/18 History HYDROcodone/APAP 10-325MG [[place] 1 tab PO QID PRN 02/25/18 02/25/18 History 10-325] sitaGLIPtin [Januvia] 100 mg PO DAILY 02/25/18 02/25/18 History Allergies Allergy/AdvReac Type Severity Reaction Status Date / Time Penicillins Allergy Rash/Hives Verified 02/25/18 18:50 Physical Exam Vitals: Vital Signs Temp Pulse Pulse Resp BP BP BP 07/18/18 16:21 99 02/26/18 14:10 98.8 F 99 18 118/74 02/26/18 06:59 99.7 F H 87 18 137/73 02/25/18 23:00 98.1 F 74 19 113/81 02/25/18 20:22 60 18 154/70 02/25/18 19:31 136/72 02/25/18 19:07 98.7 F 68 18 02/25/18 18:25 64 18 103/58 Pulse Ox 02/26/18 16:21 02/26/18 14:10 93 L 02/26/18 06:59 93 L 02/25/18 23:00 94 L 02/25/18 20:22 96 02/25/18 19:31 02/25/18 19:07 96 02/25/18 18:25 93 L Intake and Output 02/26/18 02/26/18 02/26/18 06:59 14:59 22:59 Intake Total 400 Balance 400 Intake: Oral 400 Other: Voiding Method Urinal # Voids 2 1 2 # Bowel Movements 1 1 Weight 136.531 kg GENERAL EXAM: Alert, pleasant, 77-year-old obese white male comfortable in no apparent distress. HEAD: Normocephalic/atraumatic. EYES: Normal reaction of pupils, equal size. Conjunctiva pink, sclera white. NOSE: Clear with pink turbinates. THROAT: No erythema or exudates. NECK: No masses, no JVD, no thyroid enlargement, no adenopathy. CHEST: No chest wall deformity. Symmetrical expansion. LUNGS: Equal air entry with no crackles, wheeze, rhonchi or dullness. CVS: Regular rate and rhythm, normal S1 and S2, no gallops, no murmurs, no rubs ABDOMEN: Soft, nontender. No hepatosplenomegaly, normal bowel sounds, no guarding or rigidity. EXTREMITIES: No clubbing, no edema, no cyanosis, 2+ pulses and upper and lower extremities. MUSCULOSKELETAL: Muscle strength and tone normal. SPINE: No scoliosis or deformity SKIN: No rashes CENTRAL NERVOUS SYSTEM: Alert and oriented -3. No focal deficits, tone is normal in all 4 extremities. PSYCHIATRIC: Alert and oriented -3. Appropriate affect. Intact judgment and insight. Results - Laboratory Findings CBC and BMP: 02/26/18 08:29 02/26/18 08:29 ABG ABG pH 7.34 (7.35-7.45) L 02/25/18 19:56 ABG pCO2 46 mmHg (35-45) H 02/25/18 19:56 ABG pO2 81 mmHg (83-108) L 02/25/18 19:56 ABG O2 Saturation 95.7 % (94-97) 02/25/18 19:56 PT/INR, D-dimer PT 9.5 sec (9.0-12.0) 02/25/18 18:15 INR 1.0 (<1.2) 02/25/18 18:15 Abnormal lab findings: Abnormal Labs 02/25/18 02/25/18 02/25/18 18:15 18:15 18:15 Hgb 12.5 L RDW 16.1 H Lymphocytes # 0.9 L APTT 18.8 L ABG pH ABG pCO2 ABG pO2 ABG Total CO2 Sodium 133 L Potassium 5.7 H BUN 33 H Creatinine 1.80 H Glucose 281 H POC Glucose (mg/dL) Urine Protein Urine Glucose (UA) Ur Leukocyte Esterase Hyaline Casts Urine Mucus 02/25/18 02/25/18 02/25/18 19:10 19:56 21:41 Hgb RDW Lymphocytes # APTT ABG pH 7.34 L ABG pCO2 46 H ABG pO2 81 L ABG Total CO2 26 H Sodium Potassium BUN Creatinine Glucose POC Glucose (mg/dL) 205 H Urine Protein Trace H Urine Glucose (UA) 3+ H Ur Leukocyte Esterase Trace H Hyaline Casts 47 H Urine Mucus Rare H 02/26/18 02/26/18 02/26/18 03:33 07:02 08:29 Hgb RDW 15.8 H Lymphocytes # APTT ABG pH ABG pCO2 ABG pO2 ABG Total CO2 Sodium Potassium BUN Creatinine Glucose POC Glucose (mg/dL) 301 H 218 H Urine Protein Urine Glucose (UA) Ur Leukocyte Esterase Hyaline Casts Urine Mucus 02/26/18 02/26/18 02/26/18 08:29 12:23 16:57 Hgb RDW Lymphocytes # APTT ABG pH ABG pCO2 ABG pO2 ABG Total CO2 Sodium Potassium BUN 24 H Creatinine Glucose 224 H POC Glucose (mg/dL) 269 H 336 H Urine Protein Urine Glucose (UA) Ur Leukocyte Esterase Hyaline Casts Urine Mucus - Diagnostic Findings Chest x-ray: report reviewed, image reviewed Additional studies: Echocardiogram, brain CT results, EKG, and carotid Doppler study results reviewed Assessment and Plan Plan: Assessment: #1. Intermittent confusion upon awakening, weakness, excessive daytime drowsiness rule out obstructive sleep apnea, versus TIA #2. Morbid obesity, with a BMI of 43.2 kg/m2. Patient reports significant weight gain of 30 pounds in the last year since his back surgery #3. Diabetes mellitus type 2 #4. History of coronary artery disease, previous stenting #5. Hypertension #6. Chronic back pain #7. Past history of nicotine dependence, quit 7 years ago, patient reports smoking heavily for 10 years prior to that #8. Acute kidney injury #9. Hyperlipidemia Plan: Patient is undergoing neurologic investigation to rule out TIA, or any other neurological cause of patient's symptoms of confusion, and weakness. From pulmonary standpoint, narcolepsy is not thought to be likely, but the possibility of a sleep disorder like obstructive sleep apnea is considered and will be investigated on an outpatient basis, and this is more likely based on the patient's having the features of obstructive sleep apnea and significant amount of weight gain the last year. Patient will also likely benefit from outpatient PFT for evaluation of his pulmonary function as well. So far the results of neurologic workup is negative. I performed a history & physical examination of the patient and discussed their management with my nurse practitioner, Zoila Jamison. I reviewed the nurse practitioner's note and agree with the documented findings and plan of care. Lung sounds are diminished. The findings and the impression was discussed with the patient. I attest to the documentation by the nurse practitioner. Time with Patient: Greater than 30
[2018-02-26 21:03] LABS: Glucose,Whole Blood 391 mg/dL (75-99)
--- NOTE | 2018-02-26 21:33 | P.CNNES ---
History of Present Illness Consult date: 02/26/18 History of Present Illness: The patient is a 77-year-old right-handed white male who states that he's been having episodes where his leg suddenly give out on him. He yesterday he came into the hospital with that complaint but he did not fall his was able to catch him and he was able to sit without falling. Patient has had 3 such episodes over the last few months. Dates he has no warning prior to the sudden loss of tone. Patient denied any other associated neurologic symptoms such as facial weakness slurred speech focal weakness or dizziness.'s was at his sides reports that he is usually disoriented for a few minutes when he has these episodes. He had a CAT scan of the brain which showed an old lacunar infarct in the caudate nucleus on the left. The patient's risk factors for stroke include diabetes hypertension and heart disease and previous stroke. He also has a history of smoking. Patient is currently taking 1 baby aspirin daily. Review of Systems Constitutional: Denies chills, Denies fever Eyes: denies blurred vision, denies pain Ears, nose, mouth and throat: Denies headache, Denies sore throat Respiratory: Denies cough Musculoskeletal: Denies myalgias Past Medical History Past Medical History: Diabetes Mellitus, Hypertension, Myocardial Infarction ([place] ) Additional Past Medical History / Comment(s): CHRONIC BACK PAIN, ENLARGED PROSTATE Last Myocardial Infarction Date:: 03/2015 History of Any Multi-Drug Resistant Organisms: None Reported Past Surgical History: Appendectomy, Back Surgery, Heart Catheterization With Stent, Orthopedic Surgery Additional Past Surgical History / Comment(s): HEART CATH WITH STENTS x2 (03/2015 ), BACK SURG X2. Past Anesthesia/Blood Transfusion Reactions: No Reported Reaction Date of Last Stent Placement:: 03/2015 Past Psychological History: No Psychological Hx Reported Smoking Status: Former smoker Past Alcohol Use History: None Reported Additional Past Alcohol Use History / Comment(s): QUIT SMOKING 5 YEARS AGO, SMOKED APPROX 50 YEARS., >2 PPD. Past Drug Use History: None Reported - Past Family History Mother Family Medical History: No Reported History Medications and Allergies Home Medications Medication Instructions Recorded Confirmed Type Glimepiride 2 mg PO BID-W/MEALS 03/28/15 02/25/18 History Lisinopril 20 mg PO DAILY 03/28/15 02/25/18 History metFORMIN HCL 500 mg PO TID 03/28/15 02/25/18 History Nitroglycerin Sl Tabs [Nitrostat] 0.4 mg SUBLINGUAL Q5M PRN #25 tab 03/31/15 Rx Aspirin EC [Ecotrin] 81 mg PO DAILY 12/04/16 02/25/18 History Cetirizine HCl [Zyrtec] 10 mg PO HS 12/04/16 02/25/18 History Multivitamins, Thera [Multivitamin 1 tab PO DAILY 12/04/16 02/25/18 History (formulary)] Omeprazole 40 mg PO BID 12/04/16 02/25/18 History Polyethylene Glycol 3350 [Miralax] 17 gm PO DAILY 12/04/16 02/25/18 History Tamsulosin HCl [Flomax] 0.4 mg PO DAILY 12/04/16 02/25/18 History traZODone HCL 300 mg PO HS 12/04/16 02/25/18 History Metoprolol Succinate (ER) [Toprol 50 mg PO HS 04/26/17 02/25/18 History Xl] Atorvastatin [Lipitor] 10 mg PO HS 10/24/17 02/25/18 History Insulin Glargine,Hum.rec.anlog 40 unit SQ HS 10/24/17 02/25/18 History [Lantus Solostar] Pregabalin [Lyrica] 75 mg PO DAILY PRN 10/24/17 02/25/18 History Baclofen [Lioresal] 20 mg PO TID 11/26/17 02/25/18 History Furosemide [Lasix] 40 mg PO DAILY 11/26/17 02/25/18 History Potassium Chloride ER [K-Dur 20] 20 meq PO BID 11/26/17 02/25/18 History HYDROcodone/APAP 10-325MG [[place] 1 tab PO QID PRN 02/25/18 02/25/18 History 10-325] sitaGLIPtin [Januvia] 100 mg PO DAILY 02/25/18 02/25/18 History Allergies Allergy/AdvReac Type Severity Reaction Status Date / Time Penicillins Allergy Rash/Hives Verified 02/25/18 18:50 Physical Examination - Vital Signs Vital Signs: Vital Signs Temp Pulse Resp BP BP Pulse Ox 02/26/18 16:21 99 02/26/18 14:10 98.8 F 99 18 118/74 93 L 02/26/18 06:59 99.7 F H 87 18 137/73 93 L 02/25/18 23:00 98.1 F 74 19 113/81 94 L Intake and Output 02/26/18 02/26/18 02/26/18 06:59 14:59 22:59 Intake Total 400 Balance 400 Intake: Oral 400 Other: Voiding Method Urinal # Voids 2 1 2 # Bowel Movements 1 1 Weight 136.531 kg - Constitutional General appearance: obese - EENT EENT: PERRL, hearing intact, vision intact - Respiratory Respiratory: lungs clear - Cardiovascular Cardiovascular: regular rate, normal S1, normal S2 - Integumentary Integumentary: normal - Neurologic Neurologic exam mental status: He was awake alert and oriented. He answered questions appropriately. There was no a aphasia or dysarthria. Cranial nerve examination: PERRL, EOMI, tongue midline Speech examination: intact Detailed motor examination: grossly full strength in all extremities - Psychiatric Psychiatric: mood/affect appropriate Results - Laboratory Findings CBC and BMP: 02/26/18 08:29 02/26/18 08:29 Abnormal Lab Findings: Abnormal Labs 02/25/18 02/25/18 02/25/18 18:15 18:15 18:15 Hgb 12.5 L RDW 16.1 H Lymphocytes # 0.9 L APTT 18.8 L ABG pH ABG pCO2 ABG pO2 ABG Total CO2 Sodium 133 L Potassium 5.7 H BUN 33 H Creatinine 1.80 H Glucose 281 H POC Glucose (mg/dL) Urine Protein Urine Glucose (UA) Ur Leukocyte Esterase Hyaline Casts Urine Mucus 02/25/18 02/25/18 02/25/18 19:10 19:56 21:41 Hgb RDW Lymphocytes # APTT ABG pH 7.34 L ABG pCO2 46 H ABG pO2 81 L ABG Total CO2 26 H Sodium Potassium BUN Creatinine Glucose POC Glucose (mg/dL) 205 H Urine Protein Trace H Urine Glucose (UA) 3+ H Ur Leukocyte Esterase Trace H Hyaline Casts 47 H Urine Mucus Rare H 02/26/18 02/26/18 02/26/18 03:33 07:02 08:29 Hgb RDW 15.8 H Lymphocytes # APTT ABG pH ABG pCO2 ABG pO2 ABG Total CO2 Sodium Potassium BUN Creatinine Glucose POC Glucose (mg/dL) 301 H 218 H Urine Protein Urine Glucose (UA) Ur Leukocyte Esterase Hyaline Casts Urine Mucus 02/26/18 02/26/18 02/26/18 08:29 12:23 16:57 Hgb RDW Lymphocytes # APTT ABG pH ABG pCO2 ABG pO2 ABG Total CO2 Sodium Potassium BUN 24 H Creatinine Glucose 224 H POC Glucose (mg/dL) 269 H 336 H Urine Protein Urine Glucose (UA) Ur Leukocyte Esterase Hyaline Casts Urine Mucus 02/26/18 20:49 Hgb RDW Lymphocytes # APTT ABG pH ABG pCO2 ABG pO2 ABG Total CO2 Sodium Potassium BUN Creatinine Glucose POC Glucose (mg/dL) 391 H Urine Protein Urine Glucose (UA) Ur Leukocyte Esterase Hyaline Casts Urine Mucus Assessment and Plan (1) Gait instability Current Visit: Yes Status: Acute SNOMED Code(s): 55509597 Plan: The patient is a 77-year-old man with multiple medical problems who has had 3 episodes over the last few months of sudden loss of body tone. He has fallen on one or 2 occasions. This most recent episode he did not fall. The patient does not have all the symptoms of the VBI. 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 He has no other neurologic symptoms associated with the sudden loss of tone such as vertigo or diplopia to suggest brainstem ischemia. He does have risk factors for stroke and would recommend increasing aspirin if tolerated to 81 mg twice a day. If patient is able to undergo MRI recommend MRA vertebral arteries and MRI of the brain The patient should have physical therapy.
[2018-02-26] MEDS: LORATADINE 10 MG TAB PO SCH (21:44)
[2018-02-26] MEDS: ATORVASTATIN 10 MG TAB PO SCH (21:44)
[2018-02-26] MEDS: METOPROLOL SUCCINATE (ER) 50 MG TAB.ER.24H PO SCH (21:44)
[2018-02-26] MEDS: traZODone HCL 100 MG TAB PO SCH (21:45)
[2018-02-26] MEDS: POTASSIUM CHLORIDE ER 20 MEQ TAB.ER PO SCH (21:45)
[2018-02-26] MEDS: INSULIN DETEMIR 100 UNIT/ML 10 ML VIAL SQ SCH (22:33)
[2018-02-27] MEDS: HEPARIN SODIUM,PORCINE 5,000 UNIT/ML 1 ML VIAL SQ SCH ×3 (00:24→17:51)
[2018-02-27 07:42] LABS: Glucose,Whole Blood 249 mg/dL (75-99)
[2018-02-27] MEDS: INSULIN ASPART 100 UNIT/ML 1 ML 10 ML VIAL SQ SCH ×4 (08:42→20:52)
[2018-02-27] MEDS: POLYETHYLENE GLYCOL 3350 17 GM POWD.PACK PO SCH (08:43)
[2018-02-27] MEDS: POTASSIUM CHLORIDE ER 20 MEQ TAB.ER PO SCH ×2 (08:43→20:53)
[2018-02-27] MEDS: DOCUSATE 100 MG CAP PO SCH (08:43)
[2018-02-27] MEDS: LINAGLIPTIN 5 MG TABLET PO SCH (08:44)
[2018-02-27] MEDS: FUROSEMIDE 40 MG TAB PO SCH (08:44)
[2018-02-27] MEDS: GLIMEPIRIDE 2 MG TAB PO SCH ×2 (08:44→17:52)
[2018-02-27] MEDS: LISINOPRIL 20 MG TAB PO SCH (08:44)
[2018-02-27] MEDS: PANTOPRAZOLE 40 MG TABLET PO SCH ×2 (08:44→20:53)
[2018-02-27] MEDS: TAMSULOSIN 0.4 MG CAP.ER.24H PO SCH (08:44)
[2018-02-27] MEDS: ASPIRIN 81 MG PO SCH (08:44)
[2018-02-27] MEDS: HYDROcodone/APAP 10-325MG 1 EACH TAB PO PRN ×2 (10:36→17:50)
[2018-02-27 12:20] LABS: Glucose,Whole Blood 338 mg/dL (75-99)
[2018-02-27] MEDS: MULTIVITAMINS, THERA 1 EACH TAB PO SCH (13:30)
--- NOTE | 2018-02-27 13:41 | P.PN ---
Subjective Progress Note Date: 02/27/18 77-year-old morbidly obese male one of Dr. Broussard patient who brought to demurs department at [facility] by EMS for evaluation of altered mental status and confusion according to his he woke up from his sleep had severe confusion was not alert or oriented continue to be so sleepy and drowsy could not ambulate and walk teas a bathroom had quite bed urinary retention at the time had more confusion and delusion for non-existing event in the present and demand talking to his family about problem did not exist. His son and the felt he had significant change in his mentation compared to his regular also kept having episode of twitching and not been able to ambulate ended up calling EMS found to have mild hypoxia ended up coming to the emergency department at [facility]. His workup showed mild hypoxia his sugar was normal CAT scan of the brain did not show any abnormality of the time patient was admitted for the above problem. 02/27: Carotid ultrasound shows moderate to severe atherosclerotic change bilaterally without hemodynamically significant stenosis. Echocardiogram reveals EF of 50-55% with mild concentric left hypertrophy, technically difficult study, mild mitral regurgitation, trace tricuspid regurgitation, no pulmonary hypertension. Patient has been seen by Dr. 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 EEG is still pending. Patient is also been seen by Dr. Flaheryt with plan for follow-up in the office for PFTs and sleep study. Anticipate discharge home tomorrow. Objective - Vital Signs Vital signs: Vital Signs Temp 98.5 F 02/27/18 06:00 Pulse 76 02/27/18 06:00 Resp 20 02/27/18 06:00 BP 114/52 02/27/18 06:00 Pulse Ox 92 L 02/27/18 06:00 Intake & Output 02/26/18 02/27/18 02/27/18 18:59 06:59 18:59 Intake Total 400 400 300 Output Total 1 Balance 400 399 300 Weight 136.531 kg 136.531 kg Intake: Oral 400 400 300 Output: Urine/Stool Mix 1 Other: Voiding Method Urinal Urinal # Voids 2 1 # Bowel Movements 1 1 - Exam General Appearance: Alert, cooperative, no distress, appears stated age. And morbid obesity. Neck HEENT: Supple, no lymphadenopathy, no thyroid enlargement, no carotid bruits. Lungs: Decreased breaths home bilaterally with fine rhonchi mild expiratory wheezes Chest Wall: Decreased expansion bilaterally. Heart: Regular rate and rhythm, S1, S2 normal, positive S3, positive systolic murmur, positive JVD. Back: Symmetric, no curvature, ROM normal, no CVA tenderness. Abdomen: Soft, distended with large ventral hernia worsening on the right than the left, mild epigastric discomfort. Extremities: Slight discoloration with 1+ edema and worsening arthralgia with crepitus in both knees with slight limitation of both hips as well. Pulses: 2+ and symmetric. Skin: Skin color, texture, tugor normal, no rashes or lesions. Neurologic: Alert, slightly confused, moving all his 4 extremity has more weakness in the lower extremity and upper extremity. - Labs CBC & Chem 7: 02/26/18 08:29 02/26/18 08:29 Labs: Abnormal Lab Results - Last 24 Hours (Table) 02/26/18 02/26/18 02/26/18 Range/Units 08:29 12:23 16:57 POC Glucose (mg/dL) 269 H 336 H (75-99) mg/dL Hemoglobin A1c 9.6 H (4.0-6.0) % 02/26/18 02/27/18 Range/Units 20:49 07:11 POC Glucose (mg/dL) 391 H 249 H (75-99) mg/dL Hemoglobin A1c (4.0-6.0) % Assessment and Plan Plan: 1 change mental status: Combination of mild hypoxia, possibility of TIA and most likely evidence for narcolepsy and or sleep apnea which might need to be treated soon. Continue O2 continue supportive care and further workup for TIA and CVA to be done. 2 TIA/CVA: Consult neurology, CAT scan of the brain did not show any major abnormality except age-related microvascular finding. Patient will be going for heart monitor, echo and carotid ultrasound. 3 narcolepsy/sleep apnea: With his history evidence-based is extremely high, will consult pulmonary and if patient can benefit from having BiPAP at home before doing testing will be a good idea otherwise he might need to have an outpatient sleep study before deciding on pressurize device to help reduce his sleep apnea and help to narcolepsy. 4 mild COPD: Patient can benefit from bronchodilator. 5 CAD: Post angioplasty and stent placement, he seen enamel machine operator at [facility] and he is on secondary prevention doing well. 6 type 2 diabetes on insulin: Continue Levemir along with NovoLog still on Januvia and metformin. 7 acute kidney injury with stage III running kidney disease: Gentle hydration repeat BUN/creatinine 24 hours. 8 chronic edema: Most likely diastolic congestive heart failure, remain on furosemide along with lisinopril and metoprolol. 9 BPH: Patient still on Flomax 0.4 mg daily. 10 chronic back pain post 3 back surgery still on chronic pain management apparently patient is seen Dr. Olguin for chronic pain management and has been on hydrocodone, Lyrica baclofen. 11 severe GERD: Has been on Protonix 40 mg a day. 13 hyperlipidemia: Continue patient on atorvastatin 10 mg daily. 14 DVT prophylaxis: Patient will be on heparin subcutaneous. CODE STATUS: Full code. Impression and plan of care have been directed as dictated by the signing physician. Laura Chawla nurse practitioner acting as scribe for signing physician.
[2018-02-27 14:15] VITALS: BMI 43.2
--- NOTE | 2018-02-27 15:52 | P.PN ---
Subjective Progress Note Date: 02/27/18 Principal diagnosis: Confusion, excessive daytime sleepiness, leg weakness, rule out narcolepsy, versus TIA, versus SOLANGE Mr. Lewis is a 77-year-old white male patient of Dr. Broussard, who was brought to the hospital per EMS on 02/25/2018 at 1745 for evaluation of intermittent confusion, twitching, and weakness in his bilateral knees, and inability to ambulate. Patient's states that he has been having the "spells" where he is waking up very confused, not making any sense, glassy eyes. She reports she is sleeping excessively during the day, and staying up of the night. She denies patient falling asleep unexpectedly during speaking, or eating. Patient denies waking up with a headache, does have a dry mouth on awakening, he snores. Patient has history of past medical history of diabetes mellitus, IPAP attention, myocardial infarction, coronary artery disease with previous stenting, enlarged prostate, he is a former smoker. He denies any history of obstructive sleep apnea, or any chronic lung condition. Patient has history of 3 back surgeries, and the last one was a year ago. Patient gained a significant amount of weight since his last surgery, he has been unable to sleep laying down, and has been sleeping in the recliner. Patient's reports gaining around 30 pounds in a year's time. Patient was never diagnosed with obstructive sleep apnea, or any other sleep disorders. Patient denied any fever or chills, denied any chest pain, denied any dyspnea. Denies any history of seizures, no history of strokes. Denies any history of arrhythmias. Brain CT showed cerebral atrophy, old lacunar infarct. This was compared to a previous CT brain from 10/24/2017. EEG was completed and showed sinus rhythm with first-degree AV block, and evidence of an old inferior wall infarct. 2-D echocardiogram and it showed preserved left ventricular systolic function with an EF of 50-55%, mild aortic valve sclerosis, trace to mild mitral and trace tricuspid regurgitation. No evidence of pulmonary hypertension, with right ventricular systolic pressure is less than 35 mmHg. Carotid Doppler was a suboptimal study, but moderate to severe atherosclerotic change was noted bilaterally without hemodynamically significant stenosis. Neurology was consulted. Lab work showed no evidence of leukocytosis, sodium was 133, potassium is 5.7, BUN was 33, and creatinine was 1.80. Renal profile had subsequently improved, with B1 of 24, and creatinine is 1.17. ProBNP was 65, troponin was negative 1, left sees were normal. Urinalysis showed 3+ glucose, trace leukocyte esterase. Blood gas was done in the emergency department and it showed pO2 of 81, pCO2 of 46, and pH of 7.34, as was done on 2 L of oxygen, and is consistent with mild hypercapnic respiratory failure. We're asked to see the patient in consultation for possible narcolepsy. On 02/27/2018 patient seen again in follow-up on medical surgical floor. Denies any acute complaints, room-air oxygen is 92%, denies any dyspnea, lung sounds are clear to auscultation, diminished at the bases. No wheezing no rhonchi noted. He is afebrile, vital signs are stable. , Oriented 3, has not had any episodes of sudden loss of muscle tone, inability to walk while in the hospital. No new blood work today, patient is going down for MRI/MRA and EEG today. Neurology is following. From our standpoint we will follow the patient on outpatient basis for a possible sleep study, we will check with the discharge planning in regards to patient's insurance coverage for a home study or a PSG at the sleep Center. Objective - Vital Signs Vital signs: Vital Signs Temp 98.5 F 02/27/18 06:00 Pulse 76 02/27/18 06:00 Resp 20 02/27/18 06:00 BP 114/52 02/27/18 06:00 Pulse Ox 92 L 02/27/18 06:00 Intake & Output 02/26/18 02/27/18 02/27/18 18:59 06:59 18:59 Intake Total 400 400 300 Output Total 1 Balance 400 399 300 Weight 136.531 kg 136.531 kg Intake: Oral 400 400 300 Output: Urine/Stool Mix 1 Other: Voiding Method Urinal Urinal # Voids 2 1 # Bowel Movements 1 1 - Exam GENERAL EXAM: Alert, pleasant, 77-year-old obese white male comfortable in no apparent distress. HEAD: Normocephalic/atraumatic. EYES: Normal reaction of pupils, equal size. Conjunctiva pink, sclera white. NOSE: Clear with pink turbinates. THROAT: No erythema or exudates. NECK: No masses, no JVD, no thyroid enlargement, no adenopathy. CHEST: No chest wall deformity. Symmetrical expansion. LUNGS: Equal air entry with no crackles, wheeze, rhonchi or dullness. CVS: Regular rate and rhythm, normal S1 and S2, no gallops, no murmurs, no rubs ABDOMEN: Soft, nontender. No hepatosplenomegaly, normal bowel sounds, no guarding or rigidity. EXTREMITIES: No clubbing, no edema, no cyanosis, 2+ pulses and upper and lower extremities. MUSCULOSKELETAL: Muscle strength and tone normal. SPINE: No scoliosis or deformity SKIN: No rashes CENTRAL NERVOUS SYSTEM: Alert and oriented -3. No focal deficits, tone is normal in all 4 extremities. PSYCHIATRIC: Alert and oriented -3. Appropriate affect. Intact judgment and insight. - Labs CBC & Chem 7: 02/26/18 08:29 02/26/18 08:29 Labs: Abnormal Lab Results - Last 24 Hours (Table) 02/26/18 02/26/18 02/26/18 Range/Units 08:29 12:23 16:57 POC Glucose (mg/dL) 269 H 336 H (75-99) mg/dL Hemoglobin A1c 9.6 H (4.0-6.0) % 02/26/18 02/27/18 02/27/18 Range/Units 20:49 07:11 12:12 POC Glucose (mg/dL) 391 H 249 H 338 H (75-99) mg/dL Hemoglobin A1c (4.0-6.0) % Assessment and Plan Plan: Assessment: #1. Intermittent confusion upon awakening, weakness, excessive daytime drowsiness rule out obstructive sleep apnea, versus TIA #2. Morbid obesity, with a BMI of 43.2 kg/m2. Patient reports significant weight gain of 30 pounds in the last year since his back surgery #3. Diabetes mellitus type 2 #4. History of coronary artery disease, previous stenting #5. Hypertension #6. Chronic back pain #7. Past history of nicotine dependence, quit 7 years ago, patient reports smoking heavily for 10 years prior to that #8. Acute kidney injury #9. Hyperlipidemia Plan: Patient is completing his neurological workup. From pulmonary standpoint we will check with the discharge planners regarding his insurance coverage for home sleep study versus a polysomnography at the sleep center, patient will be followed up on an outpatient basis. I performed a history & physical examination of the patient and discussed their management with my nurse practitioner, Zoila Jamison. I reviewed the nurse practitioner's note and agree with the documented findings and plan of care. Lung sounds are diminished. The findings and the impression was discussed with the patient. I attest to the documentation by the nurse practitioner. Time with Patient: Less than 30
[2018-02-27 17:53] LABS: Glucose,Whole Blood 333 mg/dL (75-99)
[2018-02-27] MEDS: traZODone HCL 100 MG TAB PO SCH (20:52)
[2018-02-27] MEDS: LORATADINE 10 MG TAB PO SCH (20:53)
[2018-02-27] MEDS: ATORVASTATIN 10 MG TAB PO SCH (20:53)
[2018-02-27] MEDS: METOPROLOL SUCCINATE (ER) 50 MG TAB.ER.24H PO SCH (20:53)
[2018-02-27] MEDS: INSULIN DETEMIR 100 UNIT/ML 10 ML VIAL SQ SCH (20:58)
[2018-02-27 21:09] LABS: Glucose,Whole Blood 306 mg/dL (75-99)
[2018-02-28] MEDS ORDERED: HEPARIN SODIUM,PORCINE 5,000 UNIT/ML 1 ML VIAL ONE
[2018-02-28 05:19] VITALS: RESP 18
[2018-02-28 06:19] VITALS: BP 114/71; PULSE 68; TEMP 98.4
[2018-02-28] MEDS: HEPARIN SODIUM,PORCINE 5,000 UNIT/ML 1 ML VIAL SQ SCH ×2 (07:17→08:05)
[2018-02-28 07:33] LABS: Glucose,Whole Blood 212 mg/dL (75-99)
[2018-02-28] MEDS: INSULIN ASPART 100 UNIT/ML 1 ML 10 ML VIAL SQ SCH ×2 (08:04→12:32)
[2018-02-28] MEDS: GLIMEPIRIDE 2 MG TAB PO SCH (08:05)
[2018-02-28] MEDS: DOCUSATE 100 MG CAP PO SCH (08:05)
[2018-02-28] MEDS: ASPIRIN 81 MG PO SCH (08:05)
[2018-02-28] MEDS: PANTOPRAZOLE 40 MG TABLET PO SCH (08:05)
[2018-02-28] MEDS: FUROSEMIDE 40 MG TAB PO SCH (08:06)
[2018-02-28] MEDS: POLYETHYLENE GLYCOL 3350 17 GM POWD.PACK PO SCH (08:06)
[2018-02-28] MEDS: LISINOPRIL 20 MG TAB PO SCH (08:06)
[2018-02-28] MEDS: POTASSIUM CHLORIDE ER 20 MEQ TAB.ER PO SCH (08:06)
[2018-02-28] MEDS: LINAGLIPTIN 5 MG TABLET PO SCH (08:06)
[2018-02-28] MEDS: TAMSULOSIN 0.4 MG CAP.ER.24H PO SCH (08:06)
--- NOTE | 2018-02-28 12:27 | P.PN ---
Subjective Progress Note Date: 02/28/18 Principal diagnosis: Confusion, excessive daytime sleepiness, leg weakness, rule out narcolepsy, versus TIA, versus SOLANGE Mr. Lewis is a 77-year-old white male patient of Dr. Broussard, who was brought to the hospital per EMS on 02/25/2018 at 1745 for evaluation of intermittent confusion, twitching, and weakness in his bilateral knees, and inability to ambulate. Patient's states that he has been having the "spells" where he is waking up very confused, not making any sense, glassy eyes. She reports she is sleeping excessively during the day, and staying up of the night. She denies patient falling asleep unexpectedly during speaking, or eating. Patient denies waking up with a headache, does have a dry mouth on awakening, he snores. Patient has history of past medical history of diabetes mellitus, IPAP attention, myocardial infarction, coronary artery disease with previous stenting, enlarged prostate, he is a former smoker. He denies any history of obstructive sleep apnea, or any chronic lung condition. Patient has history of 3 back surgeries, and the last one was a year ago. Patient gained a significant amount of weight since his last surgery, he has been unable to sleep laying down, and has been sleeping in the recliner. Patient's reports gaining around 30 pounds in a year's time. Patient was never diagnosed with obstructive sleep apnea, or any other sleep disorders. Patient denied any fever or chills, denied any chest pain, denied any dyspnea. Denies any history of seizures, no history of strokes. Denies any history of arrhythmias. Brain CT showed cerebral atrophy, old lacunar infarct. This was compared to a previous CT brain from 10/24/2017. EEG was completed and showed sinus rhythm with first-degree AV block, and evidence of an old inferior wall infarct. 2-D echocardiogram and it showed preserved left ventricular systolic function with an EF of 50-55%, mild aortic valve sclerosis, trace to mild mitral and trace tricuspid regurgitation. No evidence of pulmonary hypertension, with right ventricular systolic pressure is less than 35 mmHg. Carotid Doppler was a suboptimal study, but moderate to severe atherosclerotic change was noted bilaterally without hemodynamically significant stenosis. Neurology was consulted. Lab work showed no evidence of leukocytosis, sodium was 133, potassium is 5.7, BUN was 33, and creatinine was 1.80. Renal profile had subsequently improved, with B1 of 24, and creatinine is 1.17. ProBNP was 65, troponin was negative 1, left sees were normal. Urinalysis showed 3+ glucose, trace leukocyte esterase. Blood gas was done in the emergency department and it showed pO2 of 81, pCO2 of 46, and pH of 7.34, as was done on 2 L of oxygen, and is consistent with mild hypercapnic respiratory failure. We're asked to see the patient in consultation for possible narcolepsy. On 02/27/2018 patient seen again in follow-up on medical surgical floor. Denies any acute complaints, room-air oxygen is 92%, denies any dyspnea, lung sounds are clear to auscultation, diminished at the bases. No wheezing no rhonchi noted. He is afebrile, vital signs are stable. , Oriented 3, has not had any episodes of sudden loss of muscle tone, inability to walk while in the hospital. No new blood work today, patient is going down for MRI/MRA and EEG today. Neurology is following. From our standpoint we will follow the patient on outpatient basis for a possible sleep study, we will check with the discharge planning in regards to patient's insurance coverage for a home study or a PSG at the sleep Center. On 02/28/2018 patient seen in follow-up on medical surgical floor. Awake, alert , no signs of confusion, or delirium. No reported episodes of sudden loss of muscle tone or inability to walk while in the hospital. No focal neurological deficits. Patient was unable to have his MRI of the brain yesterday, he couldn' t fit into the machine, and the stent abrasion on his left elbow due to inability to go into the MRI. Vital signs remain stable, room air pulse ox is 92%, patient is afebrile. Denies any dyspnea. We discussed the case with the attending physician, and he was decided the patient will follow up with Dr. Cheek in the office, and an outpatient polysomnography test at the sleep Center will be ordered instead of a home sleep study. Objective - Vital Signs Vital signs: Vital Signs Temp 98.4 F 02/28/18 06:19 Pulse 68 02/28/18 06:19 Resp 18 02/28/18 06:19 BP 114/71 02/28/18 06:19 Pulse Ox 92 L 02/28/18 11:20 Intake & Output 02/27/18 02/28/18 02/28/18 18:59 06:59 18:59 Intake Total 600 900 200 Balance 600 900 200 Weight 136.531 kg Intake: Oral 600 900 200 Other: Voiding Method Urinal Toilet Urinal # Voids 1 2 # Bowel Movements 1 - Exam GENERAL EXAM: Alert, pleasant, 77-year-old obese white male comfortable in no apparent distress. HEAD: Normocephalic/atraumatic. EYES: Normal reaction of pupils, equal size. Conjunctiva pink, sclera white. NOSE: Clear with pink turbinates. THROAT: No erythema or exudates. NECK: No masses, no JVD, no thyroid enlargement, no adenopathy. CHEST: No chest wall deformity. Symmetrical expansion. LUNGS: Equal air entry with no crackles, wheeze, rhonchi or dullness. CVS: Regular rate and rhythm, normal S1 and S2, no gallops, no murmurs, no rubs ABDOMEN: Soft, nontender. No hepatosplenomegaly, normal bowel sounds, no guarding or rigidity. EXTREMITIES: No clubbing, no edema, no cyanosis, 2+ pulses and upper and lower extremities. MUSCULOSKELETAL: Muscle strength and tone normal. SPINE: No scoliosis or deformity SKIN: No rashes CENTRAL NERVOUS SYSTEM: Alert and oriented -3. No focal deficits, tone is normal in all 4 extremities. PSYCHIATRIC: Alert and oriented -3. Appropriate affect. Intact judgment and insight. - Labs CBC & Chem 7: 02/26/18 08:29 02/26/18 08:29 Labs: Abnormal Lab Results - Last 24 Hours (Table) 02/27/18 02/27/18 02/27/18 Range/Units 12:12 17:08 20:49 POC Glucose (mg/dL) 338 H 333 H 306 H (75-99) mg/dL 02/28/18 Range/Units 07:10 POC Glucose (mg/dL) 212 H (75-99) mg/dL Assessment and Plan Plan: Assessment: #1. Intermittent confusion upon awakening, weakness, excessive daytime drowsiness rule out obstructive sleep apnea, versus TIA #2. Morbid obesity, with a BMI of 43.2 kg/m2. Patient reports significant weight gain of 30 pounds in the last year since his back surgery #3. Diabetes mellitus type 2 #4. History of coronary artery disease, previous stenting #5. Hypertension #6. Chronic back pain #7. Past history of nicotine dependence, quit 7 years ago, patient reports smoking heavily for 10 years prior to that #8. Acute kidney injury #9. Hyperlipidemia Plan: Follow-up with Dr. Cheek in the office and outpatient polysomnography test at the sleep Center will be arranged. Although the patient is requesting a home sleep study, attending physician is requesting a full overnight polysomnography test related to possibility of inconclusive results. He could also benefit from measuring his pulmonary function due to his history of smoking. I performed a history & physical examination of the patient and discussed their management with my nurse practitioner, Zoila Jamison. I reviewed the nurse practitioner's note and agree with the documented findings and plan of care. Lung sounds are diminished. The findings and the impression was discussed with the patient. I attest to the documentation by the nurse practitioner. Time with Patient: Less than 30
[2018-02-28 12:30] LABS: Glucose,Whole Blood 335 mg/dL (75-99)
[2018-02-28] MEDS: HYDROcodone/APAP 10-325MG 1 EACH TAB PO PRN (12:32)
[2018-02-28] MEDS: MULTIVITAMINS, THERA 1 EACH TAB PO SCH (12:32)
--- NOTE | 2018-02-28 14:14 | P.DS ---
Providers Date of admission: 02/25/18 20:41 Expected date of discharge: 02/28/18 Attending physician: Antoine Rodriguez Consults: 02/25/18 20:42 Consult Physician Routine Consulting Provider: Josue Bearden Consult Reason/Comments: possible narcolepsy Do you want consulting provider notified?: Yes, Notify in am Consult Physician Routine Consulting Provider: Sol Brambila Consult Reason/Comments: confusion, tremor, gait instabiliy Do you want consulting provider notified?: Yes, Notify in am [facility]: 77-year-old morbidly obese male one of Dr. Broussard patient who brought to demurs department at [facility] by EMS for evaluation of altered mental status and confusion according to his he woke up from his sleep had severe confusion was not alert or oriented continue to be so sleepy and drowsy could not ambulate and walk teas a bathroom had quite bed urinary retention at the time had more confusion and delusion for non-existing event in the present and demand talking to his family about problem did not exist. His son and the felt he had significant change in his mentation compared to his regular also kept having episode of twitching and not been able to ambulate ended up calling EMS found to have mild hypoxia ended up coming to the emergency department at [facility]. His workup showed mild hypoxia his sugar was normal CAT scan of the brain did not show any abnormality of the time patient was admitted for the above problem. 02/27: Carotid ultrasound shows moderate to severe atherosclerotic change bilaterally without hemodynamically significant stenosis. Echocardiogram reveals EF of 50-55% with mild concentric left hypertrophy, technically difficult study, mild mitral regurgitation, trace tricuspid regurgitation, no pulmonary hypertension. Patient has been seen by Dr. 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 EEG is still pending. Patient is also been seen by Dr. Flaherty with plan for follow-up in the office for PFTs and sleep study. Anticipate discharge home tomorrow. 02/28: Patient has been prepared for discharge home. While getting ready, patient did have another episode of weakness in his legs as if they were giving out. He did not have any syncope or loss of consciousness. No injuries. Patient is still wished to go home. Patient being discharged home today in stable condition. Pulse ox with ambulation is 92%. Discharge diagnoses: 1. Metabolic encephalopathy secondary to hypoxia, or sleep apnea 2. TIA/CVA ruled out by neurology 3 narcolepsy/sleep apnea 4 mild COPD 5 CAD: Post angioplasty and stent placement 6 type 2 diabetes on insulin 7 acute kidney injury with hyperkalemia with chronic kidney disease stage III 8 chronic diastolic heart failure 9 BPH 10 chronic back pain post 3 back surgery still on chronic pain management 11 severe GERD 12 hyperlipidemia Discharge plan: Home with homecare Impression and plan of care have been directed as dictated by the signing physician. Laura Chawla nurse practitioner acting as scribe for signing physician. Patient Condition at Discharge: Good Plan - Discharge Summary Discharge Rx Participant: Yes New Discharge Prescriptions: New Docusate [Colace] 100 mg PO DAILY cap Continue metFORMIN HCL 500 mg PO TID Glimepiride 2 mg PO BID-W/MEALS Lisinopril 20 mg PO DAILY Nitroglycerin Sl Tabs [Nitrostat] 0.4 mg SUBLINGUAL Q5M PRN #25 tab PRN Reason: Chest Pain traZODone HCL 300 mg PO HS Omeprazole 40 mg PO BID Multivitamins, Thera [Multivitamin (formulary)] 1 tab PO DAILY Cetirizine HCl [Zyrtec] 10 mg PO HS Polyethylene Glycol 3350 [Miralax] 17 gm PO DAILY Tamsulosin HCl [Flomax] 0.4 mg PO DAILY Aspirin EC [Ecotrin Low Dose] 81 mg PO DAILY Metoprolol Succinate (ER) [Toprol XL] 50 mg PO HS Atorvastatin [Lipitor] 10 mg PO HS Insulin Glargine,Hum.rec.anlog [Lantus Solostar] 40 unit SQ HS Pregabalin [Lyrica] 75 mg PO DAILY PRN PRN Reason: Pain Baclofen [Lioresal] 20 mg PO TID Furosemide [Lasix] 40 mg PO DAILY Potassium Chloride ER [K-Dur 20] 20 meq PO BID HYDROcodone/APAP 10-325MG [Salem 10-325] 1 tab PO QID PRN PRN Reason: Pain sitaGLIPtin [Januvia] 100 mg PO DAILY Discharge Medication List Glimepiride 2 mg PO BID-W/MEALS 03/28/15 [History] Lisinopril 20 mg PO DAILY 03/28/15 [History] metFORMIN HCL 500 mg PO TID 03/28/15 [History] Nitroglycerin Sl Tabs [Nitrostat] 0.4 mg SUBLINGUAL Q5M PRN #25 tab 03/31/15 [Rx ] Aspirin EC [Ecotrin Low Dose] 81 mg PO DAILY 12/04/16 [History] Cetirizine HCl [Zyrtec] 10 mg PO HS 12/04/16 [History] Multivitamins, Thera [Multivitamin (formulary)] 1 tab PO DAILY 12/04/16 [History ] Omeprazole 40 mg PO BID 12/04/16 [History] Polyethylene Glycol 3350 [Miralax] 17 gm PO DAILY 12/04/16 [History] Tamsulosin HCl [Flomax] 0.4 mg PO DAILY 12/04/16 [History] traZODone HCL 300 mg PO HS 12/04/16 [History] Metoprolol Succinate (ER) [Toprol XL] 50 mg PO HS 04/26/17 [History] Atorvastatin [Lipitor] 10 mg PO HS 10/24/17 [History] Insulin Glargine,Hum.rec.anlog [Lantus Solostar] 40 unit SQ HS 10/24/17 [History ] Pregabalin [Lyrica] 75 mg PO DAILY PRN 10/24/17 [History] Baclofen [Lioresal] 20 mg PO TID 11/26/17 [History] Furosemide [Lasix] 40 mg PO DAILY 11/26/17 [History] Potassium Chloride ER [K-Dur 20] 20 meq PO BID 11/26/17 [History] HYDROcodone/APAP 10-325MG [Salem 10-325] 1 tab PO QID PRN 02/25/18 [History] sitaGLIPtin [Januvia] 100 mg PO DAILY 02/25/18 [History] Docusate [Colace] 100 mg PO DAILY cap 02/28/18 [Rx] Follow up Appointment(s)/Referral(s): Wendi Velez MD [STAFF PHYSICIAN] - 03/14/18 10:00 am Sol Brambila MD [STAFF PHYSICIAN] - 03/24/18 3:00 pm Tank Broussard DO [Primary Care Provider] - 1 Week (Please call for appointment) Patient Instructions/Handouts: Sleep Apnea (DC) Activity/Diet/Wound Care/Special Instructions: [facility] will continue to see you 24-48hrs after discharge. Pt needs sleep study as outpatient. Diabetic, cardiac diet. Activity as tolerated. Fall precautions. Discharge Disposition: HOME WITH HOME HEALTH SERVICES
--- NOTE | 2018-03-02 14:16 | EEG ---
ELECTROENCEPHALOGRAM REPORT DATE OF EE02/27/2018. REFERRING PHYSICIAN: Dr. Rodriguez. CONSULTING INTERPRETING PHYSICIAN: Dr. Martha Brambila ELECTROENCEPHALOGRAPHIC EXAMINATION REPORT: INDICATION FOR EXAMINATION: This patient is a 77-year-old male being evaluated for altered mental status and gait abnormalities. AGE: 77. EEG FINDINGS: A routine 21 channel awake digital EEG recording was accomplished utilizing the 10-20 international system with bipolar and referential montages. The background activity in the most alert resting state consists of a low to medium amplitude, poorly developed and poorly sustained 5-6 Hz activity over the posterior head regions. This posterior rhythm attenuates to eye opening. There is a small amount of low amplitude 18-20 Hz beta activity seen maximally over the anterior head regions. Muscle and movement artifact was observed on several occasions during the tracing. Hyperventilation was not performed. Photic stimulation and flash frequencies of 2-30 Hz produced a minimal occipital driving response. No epileptiform discharges were seen. IMPRESSION: This EEG gives evidence of a severe widespread diffuse disturbance in cerebral function. The EEG failed to reveal any focal, lateralized, or epileptiform abnormalities. Clinical correlation is recommended. MMODL / IJN: [id number] /
--- NOTE | 2018-03-06 09:41 | CDI ---
Last Revision, July 2017 Documentation Clarification Form Date: 03/06/2018 From: Collette Bairon Liliya Reece, V[employer]er [employer]acker Hours-8:30 am & 5 pm M-F Admit Date: 02/25/2018 8:41:00 PM Patient Name: Willi Lewis Visit Number: [id number] Discharge Date: 02/28/18 ATTENTION: The Clinical Documentation Specialists (CDI) and [facility] Coding Staff appreciate your assistance in clarifying documentation. Please respond to the clarification below the line at the bottom and electronically sign. The CDI & [facility] Coding staff will review the response and follow-up if needed. Please note: Queries are made part of the Legal Health Record. If you have any questions, please contact the author of this message via ITS. Dr. Wendi Velez Mild hypercapnic respiratory failure is documented in your consult and subsequent progress notes. Please specify the acuity of this condition with terms such as: Acute Chronic Acute and chronic Acute on chronic Other (please specify in the medical record) Clinically unable to further specify Unknown Please continue to document in your progress notes and discharge summary in order to capture severity of illness and risk of mortality. Include clinical findings that support your diagnosis. Mild hypercapnic respiratory failure, acute, with unknown etiology MTDD
== END 2018-02-28 14:29 | disposition home health service (06) | DRG 91 ==
LOC: EC 17:45 → 4MS4W 20:41
PROVIDERS: ADMIT Internal Medicine Geriatric Medicine; ATTEND Internal Medicine Geriatric Medicine
DX: G93.1 Anoxic brain damage, not elsewhere classified (principal); J96.02 Acute respiratory failure with hypercapnia; Z68.41 Body mass index [BMI] 40.0-44.9, adult; N17.9 Acute kidney failure, unspecified; E87.2 Acidosis; I50.32 Chronic diastolic (congestive) heart failure; I13.0 Hypertensive heart and chronic kidney disease with heart failure and stage 1 through stage 4 chronic kidney disease, or unspecified chronic kidney disease; E66.01 Morbid (severe) obesity due to excess calories; E11.65 Type 2 diabetes mellitus with hyperglycemia; E11.22 Type 2 diabetes mellitus with diabetic chronic kidney disease; J44.9 Chronic obstructive pulmonary disease, unspecified; E87.5 Hyperkalemia; N18.3 Chronic kidney disease, stage 3 (moderate); G47.419 Narcolepsy without cataplexy; N40.1 Benign prostatic hyperplasia with lower urinary tract symptoms; R33.8 Other retention of urine; I08.0 Rheumatic disorders of both mitral and aortic valves; I25.10 Atherosclerotic heart disease of native coronary artery without angina pectoris; K43.9 Ventral hernia without obstruction or gangrene; I25.2 Old myocardial infarction; I44.0 Atrioventricular block, first degree; K21.9 Gastro-esophageal reflux disease without esophagitis; E78.5 Hyperlipidemia, unspecified; G47.30 Sleep apnea, unspecified; R26.2 Difficulty in walking, not elsewhere classified; M54.9 Dorsalgia, unspecified; G89.29 Other chronic pain; Z71.3 Dietary counseling and surveillance; Z79.82 Long term (current) use of aspirin; Z79.4 Long term (current) use of insulin; Z79.899 Other long term (current) drug therapy; Z87.891 Personal history of nicotine dependence; Z86.73 Personal history of transient ischemic attack (TIA), and cerebral infarction without residual deficits; Z95.5 Presence of coronary angioplasty implant and graft; Z88.0 Allergy status to penicillin
CPT/HCPCS: 36415; 36600; 70450; 80048; 80053; 81001; 82805; 83036; 83735; 83880; 84484; 85025; 85610; 85730; 93005; 93306; 93880; 95819; 96360; 96361; 99285

== ENCOUNTER → 2018-10-03 | Outpatient (CLI) | payer MEDICARE, OTHER ==
--- NOTE | 2018-10-03 15:35 | NM ---
EXAMINATION TYPE: NM bone scan whole body DATE OF EXAM: 10/03/2018 COMPARISON: NONE HISTORY: Osteoarthritis Delayed whole-body scanning was performed following the injection of 25.6 mCi Tc 99m MDP. Images acq uired 3 hours post injection. FINDINGS: There is linear uptake along the tibia bilaterally. Mild symmetric uptake at the common clavicular blanche ints, sternoclavicular joints, glenohumeral joints, sacroiliac joints, lumbosacral junction, and left greater than right uptake within the ankles as well as right greater than left uptake within the kne es is likely on a degenerative basis. Physiologic excretion is seen within the urinary bladder and ki dneys. No suspicious radiotracer uptake is seen to suggest focal metastasis. IMPRESSION: 1. Linear bilateral tibial radiotracer uptake that can be seen in hypertrophic pulmonary osteoarthrop athy. 2. Degenerative changes of the axial and appendicular skeleton.
== END | disposition home or self-care (01) ==
LOC: RADNMMAIN 09:44
PROVIDERS: ATTEND Family Medicine
DX: M19.90 Unspecified osteoarthritis, unspecified site (principal)
CPT/HCPCS: 78306; A9503

== ENCOUNTER → 2019-03-09 | Outpatient (CLI) | payer MEDICARE, OTHER ==
[2019-03-09 17:14] LABS: African American GFR (CKD) 84.4 (60.0-200.0); Albumin 4.3 g/dL (3.80-4.90); Albumin/Globulin Ratio 2.26 (1.60-3.17); Anion Gap 8.8 mmol/L (4.00-12.00); Calcium 9.8 mg/dL (8.7-10.3); Carbon Dioxide 30.2 mmol/L (21.6-31.8); Globulin 1.9 g/dL (1.6-3.3); LDL Cholesterol,Calculated 58.8 mg/dL (0.0-131.0); Potassium 4.7 mmol/L (3.5-5.5); Total Bilirubin 0.3 mg/dL (0.2-1.2); Total Protein 6.2 g/dL (6.2-8.2); VLDL Calculation 36.2 mg/dL (5.00-40.00)
== END | disposition home or self-care (01) ==
LOC: LABWHC1 10:22
PROVIDERS: ATTEND Internal Medicine Endocrinology, Diabetes & Metabolism
DX: E11.65 Type 2 diabetes mellitus with hyperglycemia (principal)
CPT/HCPCS: 36415; 80053; 80061; 82043; 82570; 84443

== ENCOUNTER → 2019-03-19 | Outpatient (CLI) | payer MEDICARE, OTHER ==
--- NOTE | 2019-03-19 08:11 | CT ---
EXAMINATION TYPE: CT abdomen wo con DATE OF EXAM: 03/19/2019 COMPARISON: 11/13/2016 HISTORY: Abdominal pain CT DLP: 1120.8 mGycm Automated exposure control for dose reduction was used. TECHNIQUE: Helical acquisition of images was performed from the lung bases through the top of iliac crest to include entire abdomen. CONTRAST: Performed without Oral Contrast and without IV contrast. FINDINGS: LUNG BASES: There is pleural thickening and calcified granuloma in the right middle lobe. There is a 8 mm and 7 mm nodule peripheral margin of the superior segment right lower chest is new from the prio r exam. Bilateral areas of subsegmental consolidation are noted. Coronary artery calcification and ca rdiomegaly. LIVER/GB: Liver remains prominent in size. PANCREAS: No significant abnormality is seen. SPLEEN: Tiny hypodensity involving the spleen is too small to characterize and retrospectively stable . ADRENALS: No significant abnormality is seen. KIDNEYS: No significant abnormality is seen. BOWEL: Bowel gas pattern nonspecific. Stomach is decompressed and limited in assessment LYMPH NODES: No significant abnormality is appreciated. OSSEOUS STRUCTURES: Hypertrophic and degenerative changes spine with postsurgical changes noted. OTHER: Atherosclerotic change of aorta. No aneurysm. IMPRESSION: 1. Hepatomegaly 2. Coronary artery disease 3. There are right lower lobe pulmonary nodules seen which were not identified on the prior exam. Ded icated CT scan of the chest is recommended. 4. Gastric wall is thickened but there is incomplete distention of the stomach which may account for the finding. Correlate clinically to exclude gastritis or mucosal lesion.
== END ==
LOC: RADCTMAIN 06:56
PROVIDERS: ATTEND Family Medicine
DX: R16.0 Hepatomegaly, not elsewhere classified (principal)
CPT/HCPCS: 74150

== ENCOUNTER → 2019-03-27 | Outpatient (CLI) | payer MEDICARE, OTHER ==
--- NOTE | 2019-03-27 14:06 | CT ---
EXAMINATION TYPE: CT chest wo con DATE OF EXAM: 03/27/2019 COMPARISON: CT of the abdomen without contrast dated 03/19/2019 HISTORY: Solitary Pulmonary Nodule CT DLP: 842 mGycm. Automated Exposure Control for Dose Reduction was Utilized. TECHNIQUE: CT scan of the thorax is performed without IV contrast. FINDINGS: LUNGS: There is a multilobulated posterior left upper lobe soft tissue mass measuring 4.3 x 6.1 x 4.2 cm in AP by transverse by craniocaudad dimension. Small central area of pocket of air is seen. There is erosion and invasion into the right fourth rib and posterior right pleural space. There is redemonstration of multiple spiculated nodules in the inferior lateral right lower lobe marquise uring 1.5 cm and 1.1 cm on axial image 35 and 36. Small area of linear scarring/atelectasis is seen i n the left lower lobe. Mild emphysema. No pleural effusion. No pneumothorax. MEDIASTINUM: Lack of IV contrast is noted to limit evaluation for mediastinal and especially hilar ad enopathy. There are no definitive greater than 1 cm hilar or mediastinal lymph nodes. Moderate cardio megaly. No pericardial effusion. No compression deformity. IMPRESSION: Posterior left upper lobe pulmonary mass with extension through the pleural space and involvement of the right fourth rib. Additional right lower lobe spiculated nodules are favored to represent metasta sis or additional neoplasms. Further evaluation with tissue sampling and PET scan is recommended.
== END | disposition home or self-care (01) ==
LOC: RADCTMAIN 12:32
PROVIDERS: ATTEND Family Medicine
DX: R91.8 Other nonspecific abnormal finding of lung field (principal); Z88.0 Allergy status to penicillin
CPT/HCPCS: 71250

== ENCOUNTER 2019-04-08 08:44 | Inpatient (IN) | payer MEDICARE, OTHER ==
[2019-04-08] MEDS ORDERED: SODIUM CHLORIDE 0.9% 500 ML 500 ML IV ONE (08:55)
--- NOTE | 2019-04-08 09:08 | ED ---
Altered Mental Status HPI - General Stated Complaint: altered mental status Time Seen by Provider: 04/08/19 08:46 Source: patient, family, EMS, RN notes reviewed Mode of arrival: EMS Limitations: altered mental status, physical limitation - History of Present Illness Initial Comments: This a 78-year-old male presents emergency department via EMS with chief complaint altered mental status. Information is very limited from patient information from the given from family. Patient was recently diagnosed with lung cancer with bony destruction metastasis. Patient was seen by Dr. Bearden twice in the last couple weeks and was found on CT. Family states that his health has been declining over the last few days but states that is very altered from his normal baseline this morning. They noticed increased swelling of his extremities. Patient does take Lasix and has a history of CHF. Patient was given DuoNeb treatment by EMS. Patient has complaints of diffuse pain everywhe re. Patient also states that he was hypoxic at Dr. Bearden's office was ordered oxygen but not receive this onto the last day or so. Patient family concerned that he was hypoxic at home. Family states that he does appear to be distended. They report no fever - Related Data Home Medications Medication Instructions Recorded Confirmed Glimepiride 2 mg PO BID-W/MEALS 03/28/15 04/08/19 Lisinopril 20 mg PO DAILY 03/28/15 04/08/19 metFORMIN HCL 500 mg PO TID 03/28/15 04/08/19 Aspirin EC [Ecotrin Low Dose] 81 mg PO DAILY 12/04/16 04/08/19 Multivitamins, Thera [Multivitamin 1 tab PO DAILY 12/04/16 04/08/19 (formulary)] Omeprazole 40 mg PO BID 12/04/16 04/08/19 Tamsulosin HCl [Flomax] 0.4 mg PO BID 12/04/16 04/08/19 traZODone HCL 300 mg PO HS 12/04/16 04/08/19 Metoprolol Succinate (ER) [Toprol 50 mg PO HS 04/26/17 04/08/19 XL] Insulin Glargine,Hum.rec.anlog 75 unit SQ HS 10/24/17 04/08/19 [Lantus Solostar] Pregabalin [Lyrica] 75 mg PO TID 10/24/17 04/08/19 Baclofen [Lioresal] 20 mg PO TID 11/26/17 04/08/19 Furosemide [Lasix] 40 mg PO DAILY 11/26/17 04/08/19 Potassium Chloride ER [K-Dur 20] 20 meq PO BID 11/26/17 04/08/19 HYDROcodone/APAP 10-325MG [[place] 1 tab PO Q4H PRN 02/25/18 04/08/19 10-325] sitaGLIPtin [Januvia] 50 mg PO HS 02/25/18 04/08/19 Atorvastatin [Lipitor] 20 mg PO HS 04/08/19 04/08/19 Budesonide/Formoterol Fumarate 2 puff INHALATION RT-BID 04/08/19 04/08/19 [Symbicort 160-4.5 Mcg Inhaler] Calcium/Magnesium/Zinc 1 tab PO TID 04/08/19 04/08/19 [Lcsvkzp-Fwxvmnfox-Gijv Tablet] Docusate [Colace] 100 mg PO BID 04/08/19 04/08/19 Naloxegol Oxalate [Movantik] 25 mg PO DAILY PRN 04/08/19 04/08/19 Naproxen Sodium [Aleve] 220 mg PO TID-W/MEALS 04/08/19 04/08/19 Selsun Lotn 1 applic TOPICAL DAILY 04/08/19 04/08/19 predniSONE 5 mg PO DAILY PRN 04/08/19 04/08/19 Previous Rx's Medication Instructions Recorded Nitroglycerin Sl Tabs [Nitrostat] 0.4 mg SUBLINGUAL Q5M PRN #25 tab 03/31/15 Allergies Allergy/AdvReac Type Severity Reaction Status Date / Time Penicillins Allergy Rash/Hives Verified 04/08/19 09:07 Review of Systems ROS Statement: Those systems with pertinent positive or pertinent negative responses have been documented in the HPI. ROS Other: All systems not noted in ROS Statement are negative. Past Medical History Past Medical History: Diabetes Mellitus, Hypertension, Myocardial Infarction ([place]) Additional Past Medical History / Comment(s): CHRONIC BACK PAIN, ENLARGED PROSTATE Last Myocardial Infarction Date:: 03/2015 History of Any Multi-Drug Resistant Organisms: None Reported Past Surgical History: Appendectomy, Back Surgery, Heart Catheterization With Stent, Orthopedic Surgery Additional Past Surgical History / Comment(s): HEART CATH WITH STENTS x2 (03/2015), BACK SURG X2. Past Anesthesia/Blood Transfusion Reactions: No Reported Reaction Date of Last Stent Placement:: 03/2015 Past Psychological History: No Psychological Hx Reported Smoking Status: Former smoker Past Alcohol Use History: None Reported Past Drug Use History: None Reported - Past Family History Mother Family Medical History: No Reported History General Exam Limitations: altered mental status, physical limitation General appearance: alert, in no apparent distress Head exam: Present: atraumatic, normocephalic, normal inspection Eye exam: Present: normal appearance, PERRL, EOMI. Absent: scleral icterus, conjunctival injection, periorbital swelling ENT exam: Present: normal oropharynx Neck exam: Present: normal inspection. Absent: tenderness, meningismus, lymphadenopathy Respiratory exam: Present: wheezes. Absent: normal lung sounds bilaterally, respiratory distress, rales, rhonchi, stridor Cardiovascular Exam: Present: regular rate, normal rhythm, normal heart sounds. Absent: systolic murmur, diastolic murmur, rubs, gallop, clicks GI/Abdominal exam: Present: soft, distended, normal bowel sounds. Absent: ten derness, guarding, rebound, rigid Extremities exam: Present: pedal edema Neurological exam: Present: alert. Absent: oriented X3 Skin exam: Present: warm, dry, intact, normal color. Absent: rash Course Vital Signs 04/08/19 04/08/19 08:55 11:29 Temperature 97.7 F 98.7 F Pulse Rate 62 58 L Respiratory 18 18 Rate Blood Pressure 130/117 106/85 O2 Sat by Pulse 93 L 89 L Oximetry Medical Decision Making - Medical Decision Making 78-year-old male presents emergency from for altered mental status. Patient had a complete workup including labs CT x-ray VBG has ABG was unable to be obtained, urinalysis. There is no major findings though he does have a new diagnosis of cancer. Patient will be admitted for altered mental status, lung cancer, further evaluation. - Lab Data Result diagrams: 04/08/19 08:53 04/08/19 08:53 Lab Results 04/08/19 04/08/19 04/08/19 Range/Units 08:53 08:53 08:53 WBC 7.1 (3.8-10.6) k/uL RBC 4.31 (4.30-5.90) m/uL Hgb 11.8 L (13.0-17.5) gm/dL Hct 38.4 L (39.0-53.0) % MCV 89.2 (80.0-100.0) fL MCH 27.5 (25.0-35.0) pg MCHC 30.8 L (31.0-37.0) g/dL RDW 18.3 H (11.5-15.5) % Plt Count 194 (150-450) k/uL Neutrophils % 78 % Lymphocytes % 8 % Monocytes % 9 % Eosinophils % 2 % Basophils % 1 % Neutrophils # 5.6 (1.3-7.7) k/uL Lymphocytes # 0.6 L (1.0-4.8) k/uL Monocytes # 0.7 (0-1.0) k/uL Eosinophils # 0.1 (0-0.7) k/uL Basophils # 0.1 (0-0.2) k/uL Manual Slide Review Performed Polychromasia Present Hypochromasia Moderate Poikilocytosis Slight Anisocytosis Slight PT (9.0-12.0) sec INR (<1.2) APTT (22.0-30.0) sec VBG pH (7.31-7.41) VBG pCO2 (37-51) mmHg VBG HCO3 (24-28) mmol/L Sodium 142 (137-145) mmol/L Potassium 5.0 (3.5-5.1) mmol/L Chloride 101 (98-107) mmol/L Carbon Dioxide 36 H (22-30) mmol/L Anion Gap 5 mmol/L BUN 23 H (9-20) mg/dL Creatinine 1.00 (0.66-1.25) mg/dL Est GFR (CKD-EPI)AfAm 84 (>60 ml/min/1.73 sqM) Est GFR (CKD-EPI)NonAf 73 (>60 ml/min/1.73 sqM) Glucose 72 L (74-99) mg/dL POC Glucose (mg/dL) (75-99) mg/dL POC Glu [employer] Architect ID Plasma Lactic Acid Jeff (0.7-2.0) mmol/L Calcium 9.4 (8.4-10.2) mg/dL Total Bilirubin 0.6 (0.2-1.3) mg/dL AST 24 (17-59) U/L ALT 38 (21-72) U/L Alkaline Phosphatase 54 (38-126) U/L Troponin I <0.012 (0.000-0.034) ng/mL NT-Pro-B Natriuret Pep pg/mL Total Protein 6.9 (6.3-8.2) g/dL Albumin 3.7 (3.5-5.0) g/dL Urine Color Urine Appearance (Clear) Urine pH (5.0-8.0) Ur Specific Beatrice (1.001-1.035) Urine Protein (Negative) Urine Glucose (UA) (Negative) Urine Ketones (Negative) Urine Blood (Negative) Urine Nitrite (Negative) Urine Bilirubin (Negative) Urine Urobilinogen (<2.0) mg/dL Ur Leukocyte Esterase (Negative) 04/08/19 04/08/19 04/08/19 Range/Units 08:53 08:53 09:44 WBC (3.8-10.6) k/uL RBC (4.30-5.90) m/uL Hgb (13.0-17.5) gm/dL Hct (39.0-53.0) % MCV (80.0-100.0) fL MCH (25.0-35.0) pg MCHC (31.0-37.0) g/dL RDW (11.5-15.5) % Plt Count (150-450) k/uL Neutrophils % % Lymphocytes % % Monocytes % % Eosinophils % % Basophils % % Neutrophils # (1.3-7.7) k/uL Lymphocytes # (1.0-4.8) k/uL Monocytes # (0-1.0) k/uL Eosinophils # (0-0.7) k/uL Basophils # (0-0.2) k/uL Manual Slide Review Polychromasia Hypochromasia Poikilocytosis Anisocytosis PT (9.0-12.0) sec INR (<1.2) APTT (22.0-30.0) sec VBG pH (7.31-7.41) VBG pCO2 (37-51) mmHg VBG HCO3 (24-28) mmol/L Sodium (137-145) mmol/L Potassium (3.5-5.1) mmol/L Chloride (98-107) mmol/L Carbon Dioxide (22-30) mmol/L Anion Gap mmol/L BUN (9-20) mg/dL Creatinine (0.66-1.25) mg/dL Est GFR (CKD-EPI)AfAm (>60 ml/min/1.73 sqM) Est GFR (CKD-EPI)NonAf (>60 ml/min/1.73 sqM) Glucose (74-99) mg/dL POC Glucose (mg/dL) (75-99) mg/dL POC Glu [employer] Architect ID Plasma Lactic Acid Jeff 1.7 (0.7-2.0) mmol/L Calcium (8.4-10.2) mg/dL Total Bilirubin (0.2-1.3) mg/dL AST (17-59) U/L ALT (21-72) U/L Alkaline Phosphatase (38-126) U/L Troponin I (0.000-0.034) ng/mL NT-Pro-B Natriuret Pep 308 pg/mL Total Protein (6.3-8.2) g/dL Albumin (3.5-5.0) g/dL Urine Color Yellow Urine Appearance Clear (Clear) Urine pH 7.0 (5.0-8.0) Ur Specific Beatrice 1.019 (1.001-1.035) Urine Protein Trace H (Negative) Urine Glucose (UA) Negative (Negative) Urine Ketones Negative (Negative) Urine Blood Negative (Negative) Urine Nitrite Negative (Negative) Urine Bilirubin Negative (Negative) Urine Urobilinogen <2.0 (<2.0) mg/dL Ur Leukocyte Esterase Negative (Negative) 04/08/19 04/08/19 04/08/19 Range/Units 09:50 09:52 11:33 WBC (3.8-10.6) k/uL RBC (4.30-5.90) m/uL Hgb (13.0-17.5) gm/dL Hct (39.0-53.0) % MCV (80.0-100.0) fL MCH (25.0-35.0) pg MCHC (31.0-37.0) g/dL RDW (11.5-15.5) % Plt Count (150-450) k/uL Neutrophils % % Lymphocytes % % Monocytes % % Eosinophils % % Basophils % % Neutrophils # (1.3-7.7) k/uL Lymphocytes # (1.0-4.8) k/uL Monocytes # (0-1.0) k/uL Eosinophils # (0-0.7) k/uL Basophils # (0-0.2) k/uL Manual Slide Review Polychromasia Hypochromasia Poikilocytosis Anisocytosis PT 9.4 (9.0-12.0) sec INR 0.8 (<1.2) APTT 19.0 L (22.0-30.0) sec VBG pH 7.40 (7.31-7.41) VBG pCO2 52 H (37-51) mmHg VBG HCO3 32 H (24-28) mmol/L Sodium (137-145) mmol/L Potassium (3.5-5.1) mmol/L Chloride (98-107) mmol/L Carbon Dioxide (22-30) mmol/L Anion Gap mmol/L BUN (9-20) mg/dL Creatinine (0.66-1.25) mg/dL Est GFR (CKD-EPI)AfAm (>60 ml/min/1.73 sqM) Est GFR (CKD-EPI)NonAf (>60 ml/min/1.73 sqM) Glucose (74-99) mg/dL POC Glucose (mg/dL) 77 (75-99) mg/dL POC Glu [employer] Architect Pinky Owens Plasma Lactic Acid Jeff (0.7-2.0) mmol/L Calcium (8.4-10.2) mg/dL Total Bilirubin (0.2-1.3) mg/dL AST (17-59) U/L ALT (21-72) U/L Alkaline Phosphatase (38-126) U/L Troponin I (0.000-0.034) ng/mL NT-Pro-B Natriuret Pep pg/mL Total Protein (6.3-8.2) g/dL Albumin (3.5-5.0) g/dL Urine Color Urine Appearance (Clear) Urine pH (5.0-8.0) Ur Specific Beatrice (1.001-1.035) Urine Protein (Negative) Urine Glucose (UA) (Negative) Urine Ketones (Negative) Urine Blood (Negative) Urine Nitrite (Negative) Urine Bilirubin (Negative) Urine Urobilinogen (<2.0) mg/dL Ur Leukocyte Esterase (Negative) 04/08/19 Range/Units 11:49 WBC (3.8-10.6) k/uL RBC (4.30-5.90) m/uL Hgb (13.0-17.5) gm/dL Hct (39.0-53.0) % MCV (80.0-100.0) fL MCH (25.0-35.0) pg MCHC (31.0-37.0) g/dL RDW (11.5-15.5) % Plt Count (150-450) k/uL Neutrophils % % Lymphocytes % % Monocytes % % Eosinophils % % Basophils % % Neutrophils # (1.3-7.7) k/uL Lymphocytes # (1.0-4.8) k/uL Monocytes # (0-1.0) k/uL Eosinophils # (0-0.7) k/uL Basophils # (0-0.2) k/uL Manual Slide Review Polychromasia Hypochromasia Poikilocytosis Anisocytosis PT (9.0-12.0) sec INR (<1.2) APTT (22.0-30.0) sec VBG pH (7.31-7.41) VBG pCO2 (37-51) mmHg VBG HCO3 (24-28) mmol/L Sodium (137-145) mmol/L Potassium (3.5-5.1) mmol/L Chloride (98-107) mmol/L Carbon Dioxide (22-30) mmol/L Anion Gap mmol/L BUN (9-20) mg/dL Creatinine (0.66-1.25) mg/dL Est GFR (CKD-EPI)AfAm (>60 ml/min/1.73 sqM) Est GFR (CKD-EPI)NonAf (>60 ml/min/1.73 sqM) Glucose (74-99) mg/dL POC Glucose (mg/dL) 80 (75-99) mg/dL POC Glu [employer] Architect ID Nasima Daly Plasma Lactic Acid Jeff (0.7-2.0) mmol/L Calcium (8.4-10.2) mg/dL Total Bilirubin (0.2-1.3) mg/dL AST (17-59) U/L ALT (21-72) U/L Alkaline Phosphatase (38-126) U/L Troponin I (0.000-0.034) ng/mL NT-Pro-B Natriuret Pep pg/mL Total Protein (6.3-8.2) g/dL Albumin (3.5-5.0) g/dL Urine Color Urine Appearance (Clear) Urine pH (5.0-8.0) Ur Specific Beatrice (1.001-1.035) Urine Protein (Negative) Urine Glucose (UA) (Negative) Urine Ketones (Negative) Urine Blood (Negative) Urine Nitrite (Negative) Urine Bilirubin (Negative) Urine Urobilinogen (<2.0) mg/dL Ur Leukocyte Esterase (Negative) - EKG Data EKG Comments: EKG performed at 9:14 sinus rhythm with first-degree AV block, rate of 68 [place] 238 QRS 102 QT/QTC 434/434inverted T waves V1 through V3, there is no acute changes from prior EKG 02/25/2018 Disposition Clinical Impression: Confusion, Generalized weakness, Lung cancer, Altered mental status Disposition: ADMITTED IP TO THIS [facility] Condition: Poor Referrals: Tank Broussard DO [Primary Care Provider] - 1-2 days
[2019-04-08 09:34] LABS: Anisocytosis Slight; Basophils # (A) 0.1 k/uL (0-0.2); Basophils % (A) 1 %; Eosinophils # (A) 0.1 k/uL (0-0.7); Eosinophils % (A) 2 %; HCT 38.4 % (39.0-53.0); HGB 11.8 gm/dL (13.0-17.5); Hypochromasia Moderate; Lymphocytes # (A) 0.6 k/uL (1.0-4.8); Lymphocytes % (A) 8 %; MCH 27.5 pg (25.0-35.0); MCHC 30.8 g/dL (31.0-37.0); MCV 89.2 fL (80.0-100.0); Mean Platelet Volume 9.2; Monocytes # (A) 0.7 k/uL (0-1.0); Monocytes % (A) 9 %; Neutrophils # (A) 5.6 k/uL (1.3-7.7); Neutrophils % (A) 78 %; Platelet Count 194 k/uL (150-450); Poikilocytosis Slight; RBC 4.31 m/uL (4.30-5.90); RDW 18.3 % (11.5-15.5); WBC 7.1 k/uL (3.8-10.6)
[2019-04-08 09:35] LABS: Albumin 3.7 g/dL (3.5-5.0); Calcium 9.4 mg/dL (8.4-10.2); Total Bilirubin 0.6 mg/dL (0.2-1.3); Total Protein 6.9 g/dL (6.3-8.2)
[2019-04-08 09:54] LABS: Glucose,Whole Blood 77 mg/dL (75-99)
[2019-04-08 09:56] LABS: Polychromasia Present
[2019-04-08 10:14] LABS: Appearance,Urine Clear (Clear); Bilirubin,Urine Negative (Negative); Blood,Urine Negative (Negative); Color,Urine Yellow; Glucose,Urine (UA) Negative (Negative); Ketones,Urine Negative (Negative); Leukocyte Esterase,Urine Negative (Negative); Nitrite,Urine Negative (Negative); Protein,Urine Trace (Negative); Specific Gravity,Urine 1.019 (1.001-1.035); Urobilinogen,Urine <2.0 mg/dL (<2.0)
[2019-04-08 10:32] LABS: INR 0.8 (<1.2); Prothrombin Time 9.4 sec (9.0-12.0)
--- NOTE | 2019-04-08 10:40 | CT ---
EXAMINATION TYPE: CT brain wo con DATE OF EXAM: 04/08/2019 COMPARISON: 02/25/2018 HISTORY: 78-year-old male confusion, Decreased mental status and pain TECHNIQUE: Examination was done in axial plane without intravenous contrast. Coronal and sagittal r econstructions performed. CT DLP: 1290.4 mGycm Automated exposure control for dose reduction was used. FINDINGS: There is no evidence of acute intracranial hemorrhage, acute ischemic changes, mass, mass-effect, or extra-axial fluid collection. There is no effacement of cerebral sulci or basal subarachnoid cister ns. There is no hydrocephalus. There is no midline shift. Ambrose-white matter distinction is preserv ed. Prominent skull base artifacts. Moderate cerebral cortical atrophy. 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 Leftward nasal septal deviation. Paranasal sinuses and mastoid air cells well pneumatized. Orbits and globes are intact. IMPRESSION: No acute intracranial abnormality seen. Similar moderate cerebral atrophy and old lacunar infarct lef t caudate head.
--- NOTE | 2019-04-08 10:46 | XR ---
EXAMINATION TYPE: XR chest 2V DATE OF EXAM: 04/08/2019 COMPARISON: 11/26/2017 HISTORY: 78-year-old male confusion, altered mental status TECHNIQUE: AP and lateral views FINDINGS: Large patient body habitus cast hazy densities over the lungs. The lateral view is essentially nondia gnostic. Possible posterior upper lung mass on the lateral view projecting over the spine. Heart mode rately enlarged. Diffuse interstitial opacities. Mild patchy bibasilar densities. IMPRESSION: Very limited exam due to large patient body habitus. Possible posterior upper lung mass on the latera l view projecting over the spine. Moderate cardiomegaly with interstitial changes, possible CHF with pulmonary vascular congestion. Follow-up recommended. Mild patchy bibasilar atelectasis or infiltrate s.
[2019-04-08 11:46] LABS: VBG PH 7.4 (7.31-7.41)
[2019-04-08 11:50] LABS: Glucose,Whole Blood 80 mg/dL (75-99)
[2019-04-08] MEDS ORDERED: MORPHINE SULFATE 4 MG/ML SYRINGE IVP STA (12:52)
[2019-04-08] MEDS ORDERED: MORPHINE CONC SOLN 10mg/0.5mL ORAL SYRG PO PRN (13:13)
[2019-04-08] MEDS ORDERED: LORazepam ORAL CONC 60 MG/30 ML BOTTLE SL PRN (13:13)
[2019-04-08] MEDS: HYDROmorphone 1 MG/ML 1 ML SYRINGE IVP STA ×2 (13:26→19:41)
--- NOTE | 2019-04-08 16:16 | P.CONS ---
History of Present Illness - Chief Complaint Medical debility - History of Present Illness I had the opportunity to see patient for inpatient rehab consultation with regard to medical debility. He was admitted to [facility] today with mental status change. Nursing reports patient now placed on hospice and awaiting discharge. in attendance. Chest x-ray consistent with upper lobe mass and atelectasis. Head CT with moderate cerebral atrophy. No therapies prescribed currently. Patient chronic pain patient of mine on [place] 10 4 times a day. Previous functional history as elicited from : 78-year-old right-handed white male who is lives in one floor home with . Both are retired. does cooking, laundry, driving. For the last 1 month or more patient is required physical assistance for basic self-care tasks including sitdown shower and dressing and mobility with 4 wheeled walker. Patient apparently doesn't smoke or drink. PMD is Dr. Jacob. Family history father with cardiac disease. Review of Systems Review of systems: ENT: Denies sneezes or discharge. Eyes: Denies discharge or photophobia. Cardiac: Denies chest pain or palpitation. Pulmonary: Denies cough or shortness of breath. Gastrointestinal: Denies nausea, emesis, constipation, diarrhea. Genitourinary: Denies discharge or frequency. Musculoskeletal: Denies muscle or bone aches. Lower extremity edema. Neurologic: Generalized weakness and mental status confusion. Endocrine: Denies shakes or sweats. Oncology: Denies cancers. Dermatologic: Denies rash, itching, pruritus. ALLERGY/immunology: Denies sneezes, rashes. Past Medical History Past Medical History: Diabetes Mellitus, Hypertension, Myocardial Infarction ([place]) Additional Past Medical History / Comment(s): CHRONIC BACK PAIN, ENLARGED PROSTATE Last Myocardial Infarction Date:: 03/2015 History of Any Multi-Drug Resistant Organisms: None Reported Past Surgical History: Appendectomy, Back Surgery, Heart Catheterization With Stent, Orthopedic Surgery Additional Past Surgical History / Comment(s): HEART CATH WITH STENTS x2 (03/2015), BACK SURG X2. Past Anesthesia/Blood Transfusion Reactions: No Reported Reaction Date of Last Stent Placement:: 03/2015 Past Psychological History: No Psychological Hx Reported Smoking Status: Former smoker Past Alcohol Use History: None Reported Past Drug Use History: None Reported - Past Family History Mother Family Medical History: No Reported History Medications and Allergies Home Medications Medication Instructions Recorded Confirmed Type Glimepiride 2 mg PO BID-W/MEALS 03/28/15 04/08/19 History Lisinopril 20 mg PO DAILY 03/28/15 04/08/19 History metFORMIN HCL 500 mg PO TID 03/28/15 04/08/19 History Nitroglycerin Sl Tabs [Nitrostat] 0.4 mg SUBLINGUAL Q5M PRN #25 tab 03/31/15 04/08/19 Rx Aspirin EC [Ecotrin Low Dose] 81 mg PO DAILY 12/04/16 04/08/19 History Multivitamins, Thera [Multivitamin 1 tab PO DAILY 12/04/16 04/08/19 History (formulary)] Omeprazole 40 mg PO BID 12/04/16 04/08/19 History Tamsulosin HCl [Flomax] 0.4 mg PO BID 12/04/16 04/08/19 History traZODone HCL 300 mg PO HS 12/04/16 04/08/19 History Metoprolol Succinate (ER) [Toprol 50 mg PO HS 04/26/17 04/08/19 History XL] Insulin Glargine,Hum.rec.anlog 75 unit SQ HS 10/24/17 04/08/19 History [Lantus Solostar] Pregabalin [Lyrica] 75 mg PO TID 10/24/17 04/08/19 History Baclofen [Lioresal] 20 mg PO TID 11/26/17 04/08/19 History Furosemide [Lasix] 40 mg PO DAILY 11/26/17 04/08/19 History Potassium Chloride ER [K-Dur 20] 20 meq PO BID 11/26/17 04/08/19 History HYDROcodone/APAP 10-325MG [[place] 1 tab PO Q4H PRN 02/25/18 04/08/19 History 10-325] sitaGLIPtin [Januvia] 50 mg PO HS 02/25/18 04/08/19 History Atorvastatin [Lipitor] 20 mg PO HS 04/08/19 04/08/19 History Budesonide/Formoterol Fumarate 2 puff INHALATION RT-BID 04/08/19 04/08/19 History [Symbicort 160-4.5 Mcg Inhaler] Calcium/Magnesium/Zinc 1 tab PO TID 04/08/19 04/08/19 History [Jskkuhq-Kuwbsmsss-Xzgm Tablet] Docusate [Colace] 100 mg PO BID 04/08/19 04/08/19 History Naloxegol Oxalate [Movantik] 25 mg PO DAILY PRN 04/08/19 04/08/19 History Naproxen Sodium [Aleve] 220 mg PO TID-W/MEALS 04/08/19 04/08/19 History Selsun Lotn 1 applic TOPICAL DAILY 04/08/19 04/08/19 History predniSONE 5 mg PO DAILY PRN 04/08/19 04/08/19 History Allergies Allergy/AdvReac Type Severity Reaction Status Date / Time Penicillins Allergy Rash/Hives Verified 04/08/19 09:07 Physical Exam Vitals: Vital Signs Temp Pulse Resp BP Pulse Ox 04/08/19 14:15 58 L 18 119/99 92 L 04/08/19 11:29 98.7 F 58 L 18 106/85 89 L 04/08/19 08:55 97.7 F 62 18 130/117 93 L Intake and Output 04/08/19 04/08/19 04/08/19 06:59 14:59 22:59 Output Total 900 Balance -900 Output: Post Void Residual 900 Other: Weight 142.2 kg Skin: Good color, texture, turgor. General: Obese build and comfortable appearance. Head: Normocephalic, atraumatic. Eyes: Symmetric. Pupils equal round. Ears: Symmetric. Hearing within normal limits. Mouth: Clear. Neck: Supple. Carotid without bruit. Cardiac: Regular rate and rhythm. Lungs: Clear anteriorly and posteriorly. Abdomen: Soft active nontender, overweight. Extremities: Normal tone. Neurological: Mental status: Alert, cooperative, pleasant but confused. Cranial nerves: Symmetric facial tone and trapezius. Motor: Able to elevate arms about antigravity in legs are poor. Sensation: Intact throughout. DTRs: Symmetric and equal throughout. Mobility: Requires physical assistance for bed mobility. Results CBC & Chem 7: 04/08/19 08:53 04/08/19 08:53 Labs: Abnormal Lab Results - Last 24 Hours (Table) 04/08/19 04/08/19 04/08/19 Range/Units 08:53 08:53 09:44 Hgb 11.8 L (13.0-17.5) gm/dL Hct 38.4 L (39.0-53.0) % MCHC 30.8 L (31.0-37.0) g/dL RDW 18.3 H (11.5-15.5) % Lymphocytes # 0.6 L (1.0-4.8) k/uL APTT (22.0-30.0) sec VBG pCO2 (37-51) mmHg VBG HCO3 (24-28) mmol/L Carbon Dioxide 36 H (22-30) mmol/L BUN 23 H (9-20) mg/dL Glucose 72 L (74-99) mg/dL Urine Protein Trace H (Negative) 04/08/19 04/08/19 Range/Units 09:50 11:33 Hgb (13.0-17.5) gm/dL Hct (39.0-53.0) % MCHC (31.0-37.0) g/dL RDW (11.5-15.5) % Lymphocytes # (1.0-4.8) k/uL APTT 19.0 L (22.0-30.0) sec VBG pCO2 52 H (37-51) mmHg VBG HCO3 32 H (24-28) mmol/L Carbon Dioxide (22-30) mmol/L BUN (9-20) mg/dL Glucose (74-99) mg/dL Urine Protein (Negative) Assessment and Plan (1) Altered mental status Current Visit: Yes Status: Acute Code(s): R41.82 - ALTERED MENTAL STATUS, UNSPECIFIED SNOMED Code(s): 905883354 Plan: Impression: 1. Medical debility. 2. General weakness. 3. Chronic pain. 4. Pulmonary mass. Comments and plan: At this time discussed case with nurse who reports patient on Dilaudid. I will not adjust this but do note patient on home medication program [place] 10 4 times a day and was set for recheck appointment.
[2019-04-08] MEDS: LORazepam 2 MG/ML INJ IV PRN ×2 (17:13→22:25)
[2019-04-08] MEDS: DEXAMETHASONE SOD PHOSPHATE 4 MG/ML 1 ML VIAL IV SCH ×2 (17:34→22:47)
[2019-04-08] MEDS ORDERED: MORPHINE CONC SOLN 10mg/0.5mL ORAL SYRG SL PRN (18:54)
[2019-04-08 19:36] VITALS: BMI 44.9
--- NOTE | 2019-04-08 20:52 | P.HPIM ---
History of Present Illness H&P Date: 04/08/19 Chief Complaint: Shaina segment patient confusion uncontrolled pain 77-year-old morbidly obese male one of Dr. Bobo Bearden, recently diagnosed to have a lung mass March 27 2019 posterior upper lobe pulmonary mass with extension through the pleural space and involving right fourth rib with additional right lower lobe spiculated nodule representing metastatis he was scheduled to have a PET/CT this Saturday, per family member, patient has had significant discomfort related to this pain, patient has been agitated, irritable, has been more confused for approximately one day. Patient has no cough or times a day, he recently was placed on O2 this past Saturday, he has underlying history of COPD, diabetes mellitus, hypertension, previous CAD with [place], previous smoking quit 5 years ago approximately 50 pack years, He presented to the ER with above symptoms off confusion and agitation, CT of the brain shows no acute intracranial abnormality, with moderate cerebral atrophy and old lacunar infarct left caudate head, urinalysis negative, chest x- ray failed to reveal any acute infiltrates he has stable CHF with pulmonary vascular congestion, lung mass noted in the upper posterior chest, urinalysis was negative, ABGs shows pCO2 52, bicarb 32, wbc count off 7.1 family members are at bedside who is the and the niece, advanced directives were directly obtained from the as the patient cannot make a meaningful medical decision, DO NOT RESUSCITATE discussed, and they have wanted him to be in comfort care hospice consultation were made Review of Systems Constitutional: Reports as per HPI, Reports chronic pain, Reports daytime sleepiness, Reports poor appetite Ears, nose, mouth and throat: Reports as per HPI Cardiovascular: Reports as per HPI Respiratory: Reports cough, Reports dyspnea Gastrointestinal: Reports as per HPI Genitourinary: Reports as per HPI, Denies decreased libido, Denies difficulties fathering child, Denies discharge, Denies dysuria, Denies erectile dysfunction, Denies flank pain, Denies genital pain, Denies genital sores, Denies hematuria, Denies impotence, Denies incontinence, Denies kidney stones, Denies nocturia, Denies polyuria, Denies testicular lump, Denies testicular pain, Denies urinary frequency, Denies urinary hesitancy, Denies urinary retention Musculoskeletal: Reports gait dysfunction, Reports limitation of motion Neurological: Reports as per HPI, Reports balance difficulties, Reports change in mentation, Reports confusion, Reports memory loss, Denies aphasia, Denies ataxia, Denies burning pain, Denies change in smell/taste, Denies change in speech, Denies convulsions, Denies double vision, Denies gait dysfunction, Denies head injury, Denies headaches, Denies hearing difficulties, Denies lack of coordination, Denies loss of vision, Denies migraines, Denies motor disturbance, Denies numbness, Denies paralysis, Denies paresthesias, Denies seizures, Denies sensory deficit, Denies spasticity, Denies syncope, Denies tic, Denies tingling, Denies transient paralysis, Denies tremors, Denies vertigo, Denies weakness, Denies visual changes Endocrine: Reports as per HPI Hematologic/Lymphatic: Reports as per HPI Allergic/Immunologic: Reports as per HPI, Denies allergic rhinitis, Denies anaphylaxis, Denies angioedema, Denies gluten intolerance, Denies persistent infections, Denies seasonal allergies, Denies urticaria, Denies wheezing Past Medical History Past Medical History: Diabetes Mellitus, Hypertension, Myocardial Infarction ([place]) Additional Past Medical History / Comment(s): CHRONIC BACK PAIN, ENLARGED PROSTATE Last Myocardial Infarction Date:: 03/2015 History of Any Multi-Drug Resistant Organisms: None Reported Past Surgical History: Appendectomy, Back Surgery, Heart Catheterization With Stent, Orthopedic Surgery Additional Past Surgical History / Comment(s): HEART CATH WITH STENTS x2 (03/2015), BACK SURG X2. Past Anesthesia/Blood Transfusion Reactions: No Reported Reaction Date of Last Stent Placement:: 03/2015 Past Psychological History: No Psychological Hx Reported Smoking Status: Former smoker Past Alcohol Use History: None Reported Past Drug Use History: None Reported - Past Family History Mother Family Medical History: No Reported History Medications and Allergies Home Medications Medication Instructions Recorded Confirmed Type Glimepiride 2 mg PO BID-W/MEALS 03/28/15 04/08/19 History Lisinopril 20 mg PO DAILY 03/28/15 04/08/19 History metFORMIN HCL 500 mg PO TID 03/28/15 04/08/19 History Nitroglycerin Sl Tabs [Nitrostat] 0.4 mg SUBLINGUAL Q5M PRN #25 tab 03/31/15 04/08/19 Rx Aspirin EC [Ecotrin Low Dose] 81 mg PO DAILY 12/04/16 04/08/19 History Multivitamins, Thera [Multivitamin 1 tab PO DAILY 12/04/16 04/08/19 History (formulary)] Omeprazole 40 mg PO BID 12/04/16 04/08/19 History Tamsulosin HCl [Flomax] 0.4 mg PO BID 12/04/16 04/08/19 History traZODone HCL 300 mg PO HS 12/04/16 04/08/19 History Metoprolol Succinate (ER) [Toprol 50 mg PO HS 04/26/17 04/08/19 History XL] Insulin Glargine,Hum.rec.anlog 75 unit SQ HS 10/24/17 04/08/19 History [Lantus Solostar] Pregabalin [Lyrica] 75 mg PO TID 10/24/17 04/08/19 History Baclofen [Lioresal] 20 mg PO TID 11/26/17 04/08/19 History Furosemide [Lasix] 40 mg PO DAILY 11/26/17 04/08/19 History Potassium Chloride ER [K-Dur 20] 20 meq PO BID 11/26/17 04/08/19 History HYDROcodone/APAP 10-325MG [[place] 1 tab PO Q4H PRN 02/25/18 04/08/19 History 10-325] sitaGLIPtin [Januvia] 50 mg PO HS 02/25/18 04/08/19 History Atorvastatin [Lipitor] 20 mg PO HS 04/08/19 04/08/19 History Budesonide/Formoterol Fumarate 2 puff INHALATION RT-BID 04/08/19 04/08/19 History [Symbicort 160-4.5 Mcg Inhaler] Calcium/Magnesium/Zinc 1 tab PO TID 04/08/19 04/08/19 History [Pbzqqhp-Wmwzvpzzz-Qcaj Tablet] Docusate [Colace] 100 mg PO BID 04/08/19 04/08/19 History Naloxegol Oxalate [Movantik] 25 mg PO DAILY PRN 04/08/19 04/08/19 History Naproxen Sodium [Aleve] 220 mg PO TID-W/MEALS 04/08/19 04/08/19 History Selsun Lotn 1 applic TOPICAL DAILY 04/08/19 04/08/19 History predniSONE 5 mg PO DAILY PRN 04/08/19 04/08/19 History Allergies Allergy/AdvReac Type Severity Reaction Status Date / Time Penicillins Allergy Rash/Hives Verified 04/08/19 09:07 morphine AdvReac Confusion Verified 04/08/19 18:50 Physical Exam Vitals: Vital Signs Temp Pulse Resp BP Pulse Ox 04/08/19 14:15 58 L 18 119/99 92 L 04/08/19 11:29 98.7 F 58 L 18 106/85 89 L 04/08/19 08:55 97.7 F 62 18 130/117 93 L Intake and Output 04/08/19 04/08/19 04/08/19 06:59 14:59 22:59 Output Total 900 Balance -900 Output: Post Void Residual 900 Other: Weight 142.2 kg - Constitutional General appearance: cooperative, morbidly obese, obese - EENT Eyes: disc margins sharp, EOMI, PERRLA, dentition normal, normal appearance ENT: NA/AT - Respiratory Respiratory: bilateral: CTA, diminished, negative: wheezing, prolonged expiration - Cardiovascular Rhythm: regular Heart sounds: normal: S1, S2 Abnormal Heart Sounds: systolic murmur - Gastrointestinal General gastrointestinal: distended, hyperactive bowel sounds, normal bowel sounds - Integumentary Integumentary: decreased turgor, jaundiced (no), normal - Neurologic Neurologic: CNII-XII intact - Musculoskeletal Musculoskeletal: strength equal bilaterally - Psychiatric Psychiatric: A&O x's 3 (very agitated unable to stay calm from pain all over) Results CBC & Chem 7: 04/08/19 08:53 04/08/19 08:53 Labs: Abnormal Lab Results - Last 24 Hours (Table) 04/08/19 04/08/19 04/08/19 Range/Units 08:53 08:53 09:44 Hgb 11.8 L (13.0-17.5) gm/dL Hct 38.4 L (39.0-53.0) % MCHC 30.8 L (31.0-37.0) g/dL RDW 18.3 H (11.5-15.5) % Lymphocytes # 0.6 L (1.0-4.8) k/uL APTT (22.0-30.0) sec VBG pCO2 (37-51) mmHg VBG HCO3 (24-28) mmol/L Carbon Dioxide 36 H (22-30) mmol/L BUN 23 H (9-20) mg/dL Glucose 72 L (74-99) mg/dL Urine Protein Trace H (Negative) 04/08/19 04/08/19 Range/Units 09:50 11:33 Hgb (13.0-17.5) gm/dL Hct (39.0-53.0) % MCHC (31.0-37.0) g/dL RDW (11.5-15.5) % Lymphocytes # (1.0-4.8) k/uL APTT 19.0 L (22.0-30.0) sec VBG pCO2 52 H (37-51) mmHg VBG HCO3 32 H (24-28) mmol/L Carbon Dioxide (22-30) mmol/L BUN (9-20) mg/dL Glucose (74-99) mg/dL Urine Protein (Negative) Thrombosis Risk Factor Assmnt - DVT/VTE Prophylaxis DVT/VTE Prophylaxis: Contraindicated - See note Assessment and Plan Plan: 1 metabolic encephalopathy with agitation, multifactorial with hypercarbic respiratory failure 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, family did not want to proceed with any other imaging included EEG of the brain and MRI of the brain, comfort measures are desired by family members, fentanyl patches were initiated along with Ativan for agitation, hospice team consult , we will witdraw all blood work, and any life sustaining measures, comfort care measures to include fentanyl, Roxanol, Ativan, scopolamine patch 2 prior TIA/CVA 3 narcolepsy/sleep apnea: 4 mild COPD: 5 CAD: Post angioplasty and stent placement, 6 type 2 diabetes on insulin withdrawal medications, diet regular no Accu-Cheks 7 acute kidney injury with stage III running kidney disease: 8 chronic edema: Most likely diastolic congestive heart failure, 9 BPH discontinue medication 10 chronic back pain post 3 back surgery suspected for 3-8 metastatic lesion, fentanyl patches initiated, morphine oral liquid solution, when necessary for pain,. 11 severe GERD: Has been on Protonix 40 mg a day. 13 hyperlipidemia discontinue atorvastatin 14 DVT prophylaxis CODE STATUS DO NOT RESUSCITATE, comfort care measures
[2019-04-08] MEDS ORDERED: traZODone HCL 100 MG TAB PO SCH (21:15)
[2019-04-08 21:20] VITALS: BP 144/66; PULSE 68; TEMP 98.3
[2019-04-08 21:23] VITALS: RESP 18
[2019-04-08] MEDS: PREGABALIN 75 MG CAP PO SCH (22:25)
[2019-04-08] MEDS: HYDROmorphone 1 MG/ML 1 ML SYRINGE IVP PRN (23:20)
[2019-04-09] MEDS: HYDROmorphone 1 MG/ML 1 ML SYRINGE IVP PRN ×2 (02:46→07:39)
[2019-04-09] MEDS: LORazepam 2 MG/ML INJ IV PRN ×2 (04:45→11:17)
[2019-04-09] MEDS: DEXAMETHASONE SOD PHOSPHATE 4 MG/ML 1 ML VIAL IV SCH (07:39)
[2019-04-09] MEDS: PREGABALIN 75 MG CAP PO SCH (07:49)
[2019-04-09] MEDS ORDERED: LORazepam 2 MG/ML INJ IV PRN ×2 (12:04→12:36)
[2019-04-09] MEDS ORDERED: ACETAMINOPHEN 650 MG SUPP.RECT RC PRN (12:36)
[2019-04-09] MEDS ORDERED: HYDROmorphone (PF) 50 MG in SODIUM CHLORIDE 0.9% 45 ML IV SCH (12:45)
[2019-04-09] MEDS ORDERED: SCOPOLAMINE 1.5MG/72HR PATCH TRANSDERM SCH (12:45)
--- NOTE | 2019-04-09 15:55 | P.PN ---
Subjective Progress Note Date: 04/09/19 77-year-old morbidly obese male one of Dr. Bobo Bearden, recently diagnosed to have a lung mass March 27 2019 posterior upper lobe pulmonary mass with extension through the pleural space and involving right fourth rib with additional right lower lobe spiculated nodule representing metastatis he was scheduled to have a PET/CT this Saturday, per family member, patient has had significant discomfort related to this pain, patient has been agitated, irritable, has been more confused for approximately one day. Patient has no cough or times a day, he recently was placed on O2 this past Saturday, he has underlying history of COPD, diabetes mellitus, hypertension, previous CAD with [place], previous smoking quit 5 years ago approximately 50 pack years, He presented to the ER with above symptoms off confusion and agitation, CT of the brain shows no acute intracranial abnormality, with moderate cerebral atrophy and old lacunar infarct left caudate head, urinalysis negative, chest x- ray failed to reveal any acute infiltrates he has stable CHF with pulmonary vascular congestion, lung mass noted in the upper posterior chest, urinalysis was negative, ABGs shows pCO2 52, bicarb 32, wbc count off 7.1 family members are at bedside who is the and the niece, advanced directives were directly obtained from the as the patient cannot make a meaningful medical decision, DO NOT RESUSCITATE discussed, and they have wanted him to be in comfort care hospice consultation were made 04/09: Patient has been afebrile, heart rate in the 60s, pulse ox anywhere from 86-90% on 3 L nasal cannula. The patient has been receiving IV Dilaudid IV Ativan and IV Decadron. He had a Duragesic patch placed last evening. Patient was unable take any breakfast this morning. Patient took one dose of trazodone last evening but otherwise no oral medications. Family meeting with medical clearance hospice completed with plan for transition to [facility] hospice care. Objective - Vital Signs Vital signs: Vital Signs Temp 98.3 F 04/08/19 21:00 Pulse 68 04/09/19 00:00 Resp 18 04/09/19 00:00 BP 144/66 04/08/19 21:00 Pulse Ox 90 L 04/08/19 21:22 Intake & Output 04/08/19 04/09/19 04/09/19 18:59 06:59 18:59 Intake Total 740 Output Total 900 Balance -900 740 Weight 142.2 kg Intake: Intake, IV Titration 500 Amount Sodium Chloride 0.9% 500 500 ml 500 ml @ 999 mls/hr IV .Q31M ONE Rx#:[id number] Oral 240 Output: Post Void Residual 900 Other: Voiding Method Diaper Diaper Incontinent Incontinent # Voids 2 - Exam Review of systems: Unable to be obtained due to mental status. - Constitutional General appearance: morbidly obese, obese - EENT Eyes: disc margins sharp, EOMI, PERRLA, dentition normal, normal appearance ENT: NA/AT - Respiratory Respiratory: bilateral: CTA, diminished, tachypneic negative: wheezing, prolonged expiration - Cardiovascular Rhythm: regular Heart sounds: normal: S1, S2 Abnormal Heart Sounds: systolic murmur - Gastrointestinal General gastrointestinal: distended, hyperactive bowel sounds, normal bowel sounds - Integumentary Integumentary: decreased turgor, jaundiced (no), normal - Neurologic Neurologic: CNII-XII intact - Musculoskeletal Musculoskeletal: strength equal bilaterally - Psychiatric Psychiatric: O x's 1 - Labs CBC & Chem 7: 04/08/19 08:53 04/08/19 08:53 Labs: Abnormal Lab Results - Last 24 Hours (Table) 04/08/19 04/08/19 04/08/19 Range/Units 09:44 09:50 11:33 APTT 19.0 L (22.0-30.0) sec VBG pCO2 52 H (37-51) mmHg VBG HCO3 32 H (24-28) mmol/L Urine Protein Trace H (Negative) Assessment and Plan Plan: 1 metabolic encephalopathy with agitation, multifactorial with hypercarbic respiratory failure 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, family did not want to proceed with any other imaging included EEG of the brain and MRI of the brain, comfort measures are desired by family members, fentanyl patches were initiated along with Ativan for agitation, hospice team consult , we will witdraw all blood work, and any life sustaining measures, comfort care measures to include fentanyl, Roxanol, Ativan, scopolamine patch 2 prior TIA/CVA 3 narcolepsy/sleep apnea: 4 mild COPD: 5 CAD: Post angioplasty and stent placement, 6 type 2 diabetes on insulin withdrawal medications, diet regular no Accu-Cheks 7 acute kidney injury with stage III running kidney disease: 8 chronic edema: Most likely diastolic congestive heart failure, 9 BPH discontinue medication 10 chronic back pain post 3 back surgery suspected for 3-8 metastatic lesion, fentanyl patches initiated, morphine oral liquid solution, when necessary for pain,. 11 severe GERD: Has been on Protonix 40 mg a day. 13 hyperlipidemia discontinue atorvastatin 14 DVT prophylaxis CODE STATUS DO NOT RESUSCITATE, comfort care measures Plan transition to inpatient [facility] hospice care. Impression and plan of care have been directed as dictated by the signing phys ician. Laura Chawla nurse practitioner acting as scribe for signing physician.
[2019-04-09] MEDS ORDERED: METOPROLOL SUCCINATE (ER) 50 MG TAB.ER.24H PO SCH (21:00)
--- NOTE | 2019-04-10 14:31 | P.DS ---
Providers Date of admission: 04/08/19 13:56 Attending physician: Louise Jacob Primary care physician: [facility] Course: 77-year-old morbidly obese male one of Dr. Bobo Bearden, recently diagnosed to have a lung mass March 27 2019 posterior upper lobe pulmonary mass with extension through the pleural space and involving right fourth rib with additional right lower lobe spiculated nodule representing metastatis he was scheduled to have a PET/CT this Saturday, per family member, patient has had significant discomfort related to this pain, patient has been agitated, irritable, has been more confused for approximately one day. 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, urinalysis negative, chest x- ray failed to reveal any acute infiltrates he has stable CHF with pulmonary vascular congestion, lung mass noted in the upper posterior chest, urinalysis was negative, ABGs shows pCO2 52, bicarb 32, wbc count off 7.1 family members are at bedside who is the and the niece, advanced directives were directly obtained from the as the patient cannot make a meaningful medical decision, DO NOT RESUSCITATE discussed, and they have wanted him to be in comfort care hospice consultation were made 04/09: Patient has been afebrile, heart rate in the 60s, pulse ox anywhere from 86-90% on 3 L nasal cannula. The patient has been receiving IV Dilaudid IV Ativan and IV Decadron. He had a Duragesic patch placed last evening. Patient was unable take any breakfast this morning. Patient took one dose of trazodone last evening but otherwise no oral medications. Family meeting with medical clearance hospice completed with plan for 04/10: Patient on the morning of April 10. Please see nursing documentation for details. 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 Laura Chawla nurse practitioner acting as scribe for signing physician. Patient Condition at Discharge: Undetermined Plan - Discharge Summary Discharge Rx Participant: Yes New Discharge Prescriptions: No Action metFORMIN HCL 500 mg PO TID Glimepiride 2 mg PO BID-W/MEALS Lisinopril 20 mg PO DAILY Nitroglycerin Sl Tabs [Nitrostat] 0.4 mg SUBLINGUAL Q5M PRN #25 tab PRN Reason: Chest Pain traZODone HCL 300 mg PO HS Omeprazole 40 mg PO BID Multivitamins, Thera [Multivitamin (formulary)] 1 tab PO DAILY Tamsulosin HCl [Flomax] 0.4 mg PO BID Aspirin EC [Ecotrin Low Dose] 81 mg PO DAILY Metoprolol Succinate (ER) [Toprol XL] 50 mg PO HS Insulin Glargine,Hum.rec.anlog [Lantus Solostar] 75 unit SQ HS Pregabalin [Lyrica] 75 mg PO TID Baclofen [Lioresal] 20 mg PO TID Furosemide [Lasix] 40 mg PO DAILY Potassium Chloride ER [K-Dur 20] 20 meq PO BID HYDROcodone/APAP 10-325MG [[place] 10-325] 1 tab PO Q4H PRN PRN Reason: Pain sitaGLIPtin [Januvia] 50 mg PO HS Calcium/Magnesium/Zinc [Itjwwha-Oyiqmmpbz-Dqnw Tablet] 1 tab PO TID Budesonide/Formoterol Fumarate [Symbicort 160-4.5 Mcg Inhaler] 2 puff INHALATION RT-BID predniSONE 5 mg PO DAILY PRN PRN Reason: Rash Naloxegol Oxalate [Movantik] 25 mg PO DAILY PRN PRN Reason: Constipation Naproxen Sodium [Aleve] 220 mg PO TID-W/MEALS Atorvastatin [Lipitor] 20 mg PO HS Selsun Lotn 1 applic TOPICAL DAILY Docusate [Colace] 100 mg PO BID Discharge Medication List Glimepiride 2 mg PO BID-W/MEALS 03/28/15 [History] Lisinopril 20 mg PO DAILY 03/28/15 [History] metFORMIN HCL 500 mg PO TID 03/28/15 [History] Nitroglycerin Sl Tabs [Nitrostat] 0.4 mg SUBLINGUAL Q5M PRN #25 tab 03/31/15 [Rx] Aspirin EC [Ecotrin Low Dose] 81 mg PO DAILY 12/04/16 [History] Multivitamins, Thera [Multivitamin (formulary)] 1 tab PO DAILY 12/04/16 [History] Omeprazole 40 mg PO BID 12/04/16 [History] Tamsulosin HCl [Flomax] 0.4 mg PO BID 12/04/16 [History] traZODone HCL 300 mg PO HS 12/04/16 [History] Metoprolol Succinate (ER) [Toprol XL] 50 mg PO HS 04/26/17 [History] Insulin Glargine,Hum.rec.anlog [Lantus Solostar] 75 unit SQ HS 10/24/17 [History] Pregabalin [Lyrica] 75 mg PO TID 10/24/17 [History] Baclofen [Lioresal] 20 mg PO TID 11/26/17 [History] Furosemide [Lasix] 40 mg PO DAILY 11/26/17 [History] Potassium Chloride ER [K-Dur 20] 20 meq PO BID 11/26/17 [History] HYDROcodone/APAP 10-325MG [[place] 10-325] 1 tab PO Q4H PRN 02/25/18 [History] sitaGLIPtin [Januvia] 50 mg PO HS 02/25/18 [History] Atorvastatin [Lipitor] 20 mg PO HS 04/08/19 [History] Budesonide/Formoterol Fumarate [Symbicort 160-4.5 Mcg Inhaler] 2 puff INHALATION RT-BID 04/08/19 [History] Calcium/Magnesium/Zinc [Nhjyeqf-Ateqkurmj-Jmuf Tablet] 1 tab PO TID 04/08/19 [History] Docusate [Colace] 100 mg PO BID 04/08/19 [History] Naloxegol Oxalate [Movantik] 25 mg PO DAILY PRN 04/08/19 [History] Naproxen Sodium [Aleve] 220 mg PO TID-W/MEALS 04/08/19 [History] Selsun Lotn 1 applic TOPICAL DAILY 04/08/19 [History] predniSONE 5 mg PO DAILY PRN 04/08/19 [History] Follow up Appointment(s)/Referral(s): [facility], [NON-STAFF] - (You may contact [facility] at this number also. ) Tank Broussard DO [Primary Care Provider] - 1-2 days - Preliminary Cause of Preliminary Cause of : metastatic stage IV lung cancer
== END 2019-04-09 12:04 | disposition hospice, inpatient (51) | DRG 180 ==
LOC: EC 08:44 → 3NMEDONC 13:56
PROVIDERS: ADMIT Family Medicine; ATTEND Family Medicine
DX: C34.12 Malignant neoplasm of upper lobe, left bronchus or lung (principal); J96.02 Acute respiratory failure with hypercapnia; G93.41 Metabolic encephalopathy; C78.01 Secondary malignant neoplasm of right lung; C79.51 Secondary malignant neoplasm of bone; I13.0 Hypertensive heart and chronic kidney disease with heart failure and stage 1 through stage 4 chronic kidney disease, or unspecified chronic kidney disease; I50.32 Chronic diastolic (congestive) heart failure; J98.11 Atelectasis; N17.9 Acute kidney failure, unspecified; Z68.42 Body mass index [BMI] 45.0-49.9, adult; Z51.5 Encounter for palliative care; Z66 Do not resuscitate; E11.22 Type 2 diabetes mellitus with diabetic chronic kidney disease; J44.9 Chronic obstructive pulmonary disease, unspecified; E66.01 Morbid (severe) obesity due to excess calories; N18.3 Chronic kidney disease, stage 3 (moderate); E78.5 Hyperlipidemia, unspecified; G47.30 Sleep apnea, unspecified; G47.419 Narcolepsy without cataplexy; G89.29 Other chronic pain; I25.10 Atherosclerotic heart disease of native coronary artery without angina pectoris; I25.2 Old myocardial infarction; K21.9 Gastro-esophageal reflux disease without esophagitis; N40.0 Benign prostatic hyperplasia without lower urinary tract symptoms; R45.1 Restlessness and agitation; M54.9 Dorsalgia, unspecified; R01.1 Cardiac murmur, unspecified; R32 Unspecified urinary incontinence; Z79.4 Long term (current) use of insulin; Z79.51 Long term (current) use of inhaled steroids; Z79.82 Long term (current) use of aspirin; Z79.899 Other long term (current) drug therapy; Z79.52 Long term (current) use of systemic steroids; Z88.0 Allergy status to penicillin; Z86.73 Personal history of transient ischemic attack (TIA), and cerebral infarction without residual deficits; Z87.891 Personal history of nicotine dependence; Z95.5 Presence of coronary angioplasty implant and graft; Z90.49 Acquired absence of other specified parts of digestive tract
CPT/HCPCS: 36415; 51798; 70450; 71046; 80053; 81003; 82803; 83605; 83880; 84484; 85025; 85610; 85730; 87040; 93005; 96361; 96374; 96375; 99285

== ENCOUNTER 2019-04-09 11:57 | Inpatient (IN) | payer MEDICAID ==
[2019-04-09] MEDS ORDERED: ACETAMINOPHEN 650 MG SUPP.RECT RC PRN (12:41)
[2019-04-09] MEDS ORDERED: LORazepam 2 MG/ML INJ IV PRN (12:43)
[2019-04-09] MEDS ORDERED: SCOPOLAMINE 1.5MG/72HR PATCH TRANSDERM SCH (12:45)
[2019-04-09] MEDS ORDERED: HYDROmorphone (PF) 50 MG in SODIUM CHLORIDE 0.9% 45 ML IV SCH (13:15)
--- NOTE | 2019-04-10 14:27 | P.PN ---
Progress Note - Text Progress Note Date: 04/10/19 Please see discharge summary from last visit.
== END 2019-04-10 10:00 | disposition expired | DRG 951 ==
LOC: 3NMEDONC 12:40
PROVIDERS: ADMIT Family Medicine; ATTEND Family Medicine
DX: Z51.5 Encounter for palliative care (principal); G93.41 Metabolic encephalopathy; J96.02 Acute respiratory failure with hypercapnia; C34.12 Malignant neoplasm of upper lobe, left bronchus or lung; C79.51 Secondary malignant neoplasm of bone; I50.32 Chronic diastolic (congestive) heart failure; N17.9 Acute kidney failure, unspecified; I25.10 Atherosclerotic heart disease of native coronary artery without angina pectoris; Z95.5 Presence of coronary angioplasty implant and graft; Z86.73 Personal history of transient ischemic attack (TIA), and cerebral infarction without residual deficits; J44.9 Chronic obstructive pulmonary disease, unspecified; E11.22 Type 2 diabetes mellitus with diabetic chronic kidney disease; K21.9 Gastro-esophageal reflux disease without esophagitis; E78.5 Hyperlipidemia, unspecified; N40.0 Benign prostatic hyperplasia without lower urinary tract symptoms; N18.3 Chronic kidney disease, stage 3 (moderate)